=== PATIENT | male | born 1960 | race Caucasian/White ===

== ENCOUNTER → 2020-06-12 | Outpatient (CLI) | payer BC, SELFPAY ==
[2020-06-12 10:05] LABS: Absolute Lymphocyte Count 1.32 X10^3/uL (0.83-4.51); Absolute Neutrophil Count 2.6 X10^3/uL (2.0-7.7); Basophil# 0.05 X10^3/uL; Basophil% 1.1 % (0-1); Eosinophil# 0.15 X10^3/uL; Eosinophils% 3.3 % (0-5); Hematocrit 45.5 % (40-54); Hemoglobin 14.8 g/dL (13.0-16.5); Lymphocyte # 1.32 X10^3/ul (4.0); Lymphocyte % 29.5 % (19-41); Mean Corp Hgb Conc 32.5 g/dL (32-36); Mean Corpuscular Hgb 30.1 pg (27.0-32.0); Mean Corpuscular Volume 92.5 fL (80-94); Mean Platelet Vol. 9.5 fl (6.2-12.0); Monocyte# 0.37 X10^3/uL; Monocyte% 8.3 % (0-10); NRBC Flagged by Analyzer 0 % (0-5); Neutrophil # 2.58 X10^3/uL (2.7-7.7); Neutrophil % 57.6 % (47-70); Platelet Count 214 K/mm3 (150-450); RBC Distribution Width CV 13.4 % (11.6-14.6); RBC Distribution Width SD 45.2 fl (35.1-43.9); Red Blood Count 4.92 M/mm3 (4.6-6.2); White Blood Count 4.5 K/mm3 (4.4-11.0)
[2020-06-12 10:23] LABS: Hemoglobin A1c 5.6 % (3.8-5.6)
[2020-06-12 10:30] LABS: ALB/GLOB Ratio 1.2 RATIO (0.9-2.4); AST(SGOT) 17 U/L (15-37); Alanine Aminotransfer ALT/SGPT 32 U/L (16-61); Albumin, Serum 3.9 g/dL (3.2-5.0); Alkaline Phosphatase 60 U/L (45-117); Anion Gap 4 (5-15); BUN 14 mg/dL (7-18); BUN/Creat Ratio 19.8 RATIO (10-20); Calcium,Total 9.1 mg/dL (8.5-10.1); Chloride 107 mmol/L (98-107); Cholesterol 196 mg/dL (200); Creatinine, Serum 0.71 mg/dL (0.70-1.30); EST Glomerular Filtration Rate 121 mL/min (>60); Est Glom Filt Rate - Afr Amer 146 mL/min (>60); Globulin 3.3 g/dL (2.2-4.2); Glucose 96 mg/dL (74-106); High Density Lipoprotein 83 mg/dL; Potassium 4.4 mmol/L (3.5-5.1); Protein, Total 7.2 g/dL (6.4-8.2); Sodium Level 139 mmol/L (136-145); Triglycerides 101 mg/dL; Uric Acid 6.1 mg/dL (3.5-7.2); Very Low Density Lipoprotein 20 mg/dL (5-40)
== END | disposition home or self-care (01) ==
PROVIDERS: PCP Family Medicine; Referring Provider Family Medicine; Visit Provider Family Medicine
DX: Z00.00 Encounter for general adult medical examination without abnormal findings (principal); M10.9 Gout, unspecified; R73.01 Impaired fasting glucose
CPT/HCPCS: 36415; 80053; 80061; 83036; 84550; 85025

== ENCOUNTER 2020-11-06 14:07 | Observation (INO) | payer BC, SELFPAY ==
[2020-11-06] VITALS (16 sets, daily range): BP systolic 123–174; BP diastolic 67–92; PULSE 50–73; RESP 13–19; TEMP 36–36.9; O2SAT 93–100; BMI 31.9; BMI 32.0; BMI 30.6
--- NOTE | 2020-11-06 14:10 | EKG12_ITS ---
Test Reason : DIZZINESS Blood Pressure : / mmHG Vent. Rate : 052 BPM Atrial Rate : 052 BPM P-R Int : 176 ms QRS Dur : 104 ms QT Int : 484 ms P-R-T Axes : 043 013 029 degrees QTc Int : 450 ms Sinus bradycardia Otherwise normal ECG Confirmed by TREASURE JOSEPH, NOÉ ([id number]), graphic editor [place] ([id number]) on 11/11/2020 2:19:02 PM Referred By: CHINTAN Confirmed By:NOÉ AMANDA MD
--- NOTE | 2020-11-06 14:10 | CT_ITS ---
STUDY: CT HEAD STROKE PROTOCOL W/O CONTRAST INJECTION REASON FOR EXAM: Male, 60 years old. Neuro deficit, acute, stroke suspected RADIATION DOSAGE (If Supplied By Facility): CTDIvol = ( ) mGy, DLP = ( ) mGycm TECHNIQUE: Transaxial CT imaging of the brain was performed without administration of intravenous contrast material. Individualized dose optimization techniques were used for this CT. COMPARISON: No relevant priors. FINDINGS: Normal soft tissue structures. Normal calvarium. There is mild cerebral atrophy with widening of the extra-axial spaces and ventricular dilatation. Normal white matter tracts of the cerebral hemispheres. Normal basal ganglia and thalami. Normal brainstem. Normal cerebellum. There is no intracranial hemorrhage. There are no findings of an acute ischemic infarction. Normal visualized paranasal sinuses. CT/STROKE Brain/Head without Cont IMPRESSION: Chronic involutional changes of the brain. N.B. : The above information has been verbally conveyed by Rai Hester MD to Ross Shell on 11/06/2020 14:23:45 (ET). Electronically Signed: Rai Hester MD at 14:24 EST , Service support ,
--- NOTE | 2020-11-06 14:15 | CM.ED ---
SOCIAL WORK Stroke Alert Patient out of room for testing. present in room. Introduced role. states patient feeling dizzy and headache this morning around 7:30a. states patient has history of vertigo. reports patient is independent with all ADLS/IADLS. Patient is retired. states patient has been under a lot of stress due to his dog's illness and the dog's need to be put to sleep on Wednesday. Much emotional support provided. This worker to remain available for needs. Lizbeth Jarquin, CONTRACT ADMINISTRATOR, MENTAL HEALTH ASSISTANT
--- NOTE | 2020-11-06 14:18 | CT_ITS ---
STUDY: CTA HEAD AND NECK WITH CONTRAST REASON FOR EXAM: Male, 60 years old. Neuro deficit, acute, stroke suspected RADIATION DOSAGE (If Supplied By Facility): CTDIvol = ( 22.17 ) mGy, DLP = ( 757.65 ) mGycm TECHNIQUE: CT angiography was performed with a multi-detector CT scanner. Data acquisition was obtained from the skull base through the vertex following intravenous administration of IV 100mL Isovue-[id number]. MIP images were reconstructed from the axial data set. Post-processing of the angiographic images was performed, with multiplanar reformation and 3D reconstruction. Individualized dose optimization techniques were used for this CT. COMPARISON: No relevant priors. FINDINGS: Normal bilateral petrous carotid arteries. Normal right cavernous carotid artery with a normal supraclinoid bifurcation. Normal left cavernous carotid artery with a normal supraclinoid bifurcation. Normal right A1 segments of the anterior cerebral artery. Normal left A1 segments of the anterior cerebral artery. Normal intact anterior communicating artery (ACOM). Normal bilateral A2 segments of the anterior cerebral arteries. Normal right M1 and M2 segments of the middle cerebral arteries, with a normal M1 bifurcation. Normal left M1 and M2 segments of the middle cerebral arteries, with a normal M1 bifurcation. Normal right posterior communicating artery (PCOM). Normal left posterior communicating artery (PCOM). Normal bilateral vertebral arteries. Normal basilar artery with a normal basilar bifurcation. The visualized bilateral superior cerebellar (SCA) arteries are normal. Normal bilateral P1, P2 and visualized P3 segments of the posterior cerebral arteries. There is no demonstrated aneurysm of the [place]. There is no demonstrated abnormality of the visualized brain. AORTIC ARCH: Normal visualized aortic arch. Normal origins of the brachiocephalic, left common carotid, and left subclavian arteries. RIGHT CAROTID ARTERIES: Normal right common carotid artery (CCA). Normal right common carotid bulb. Normal origin of the right internal carotid (ICA) artery without a hemodynamically significant stenosis. Normal visualized cervical portion of the right internal carotid artery. Normal origin of the right external carotid artery (ECA). LEFT CAROTID ARTERIES: Normal left common carotid artery (CCA). Normal left common carotid bulb. Normal origin of the left internal carotid (ICA) artery without a hemodynamically significant stenosis. Normal visualized cervical portion of the left internal carotid artery. Normal origin of the left external carotid artery (ECA). VERTEBRAL ARTERIES: There is enhancement within the bilateral vertebral arteries with a small right vertebral artery, and a dominant left vertebral artery. CT/STROKE CTA Head AND Neck W/Con IMPRESSION: Normal CTA Head and neck with contrast. N.B. : The above information has been verbally conveyed by Rai Hester MD to Ross Shell on 11/06/2020 14:43:14 (ET). Electronically Signed: Rai Hester MD at 14:44 EST , Service support ,
[2020-11-06 14:21] LABS: Bedside Glucose 140 mg/dL (70-110)
[2020-11-06 14:24] LABS: Absolute Lymphocyte Count 0.95 X10^3/uL (0.83-4.51); Absolute Neutrophil Count 4.4 X10^3/uL (2.0-7.7); Basophil# 0.03 X10^3/uL; Basophil% 0.5 % (0-1); Eosinophil# 0.01 X10^3/uL; Eosinophils% 0.2 % (0-5); Hemoglobin 15.8 g/dL (13.0-16.5); Lymphocyte # 0.95 X10^3/ul (4.0); Lymphocyte % 16.6 % (19-41); Mean Corp Hgb Conc 33.6 g/dL (32-36); Mean Corpuscular Volume 89.2 fL (80-94); Mean Platelet Vol. 9.1 fl (6.2-12.0); Monocyte# 0.29 X10^3/uL; Monocyte% 5.1 % (0-10); NRBC Flagged by Analyzer 0 % (0-5); Neutrophil # 4.42 X10^3/uL (2.7-7.7); Neutrophil % 77.3 % (47-70); Platelet Count 210 K/mm3 (150-450); RBC Distribution Width CV 12.7 % (11.6-14.6); RBC Distribution Width SD 41.4 fl (35.1-43.9); Red Blood Count 5.27 M/mm3 (4.6-6.2); White Blood Count 5.7 K/mm3 (4.4-11.0)
[2020-11-06 14:31] LABS: Partial Thromboplast Time 24.4 Seconds (24.1-36.2); Prothrombin Time (Protime)PT. 12.7 SECONDS (11.7-14.9)
--- NOTE | 2020-11-06 14:36 | ED.DCSUM_ITS ---
History of Present Illness Chief Complaint: Dizziness Informant: Patient, Family Narrative: Patient is a 60-year-old male who presents to the emergency department for headache, dizziness and nausea/vomiting. His initial symptoms started upon awaking this morning. His last known well was 2:30 AM whenever he woke up in the middle the night last night. He states that the headache woke him up out of sleep this morning. He feels like the room has been spinning around him. He does have a history of vertigo but feels this states different. His nausea has since resolved but the dizziness is persistent. He denies any visual changes. He denies any weakness or loss of sensation in any extremity. No issues with word finding. He denies any recent illness including any fever/chills. No ear pain or sore throat. He denies any change in bowel habits or urinary symptoms. He is not on any anticoagulation. Denies any recent falls. He has not had any chest pain, shortness of breath or heart palpitations. Past Medical History - Allergies and Home Meds Allergies/Adverse Reactions: Allergies Penicillins Allergy (Verified 11/09/16 08:24) Rash Prior records reviewed: Yes Smoking Status: Never smoker Review of Systems All systems negative except as indicated General: Denies: Chills, Fever, Sweats Eyes: Denies: Visual changes - bilaterally, Diplopia ENT: Denies: Rhinorrhea, Sore throat Cardiovascular: Denies: Chest pain, Palpitations Respiratory: Denies: Dyspnea, Cough, Dyspnea on exertion Gastrointestinal: Reports: Nausea, Vomiting. Denies: Abdominal pain, Diarrhea Genitourinary: Denies: Dysuria, Hematuria, Frequency Musculoskeletal: Denies: Back pain, Extremity Pain Skin: Denies: Rash, Wounds Neurological: Reports: Headache, - - Dizziness. Denies: Weakness, Numbness Physical Exam Vital Signs/Narrative: Vital Signs Temp Pulse Resp BP Pulse Ox 11/06/20 14:23 96.8 F L 55 L 19 H 129/85 H 93 Inital Vital Signs reviewed: Yes General: Well nourished, Well developed Head: Normocephalic, Atraumatic Eyes: Perrl, EOMI, - - Fatigable nystagmus to left ENT: Moist mucous membranes, No rhinorrhea Neck: Supple, Nontender Cardiovascular: Regular rate, Regular rhythm, No murmurs Respiratory: No distress, CTA bilaterally, Chest nontender Abdomen: Soft, Nontender, Nondistended, Normal bowel sounds Back: Nontender, Normal Inspection Extremities: Nontender, No edema Skin: Normal color, No rash Neurological: Alert, Oriented x3, Cranial nerves II-XII grossly intact, Normal Strength, Normal Sensation, - - NIH score of 0.. Negative for: Left side facial droop, Right side facial droop Psychological: Normal affect, Normal Mood Diagnostic/Tx/Re-eval Chest X-Ray - ED: 1 View - Single view portable x-ray interpreted by myself. Clear lung melchor bilaterally. Mild elevation of right hemidiaphragm. No consolidations appreciated. No pleural effusions. Normal cardiac silhouette. - EKG Initial EKG Interpretation: - - Rate of 52 bpm in sinus bradycardia. Normal intervals. Normal axis. No significant ST elevations or depressions. No T wave abnormalities. - Medical Decision Making Patient presents to the ED for headache, dizziness and vomiting. Stroke alert was called upon arrival to the emergency department. Patient not a TPA candidate given the length of symptoms. He does have a history of vertigo but does not feel this is completely similar. He has no focal deficits on physical exam. Does have fatigable nystagmus to the left points to the direction of BPPV. Will trial a dose of meclizine. Did get a dose of Zofran as she was actively vomiting upon arrival to the emergency department. Throughout ED stay patient still having persistent dizziness despite meclizine treatment. He is starting to complain that the left side of his face is feeling more numb. Given the persistent symptoms, other focal deficit with the sensory issue will bring him into the hospital for further stroke work-up. His CT imaging did not reveal any large vessel occlusion or intracranial hemorrhage. He otherwise has been stable throughout ED stay. He is agreeable to staying in the hospital at this time. ED Disposition - Plan for ED Patient: Disposition: Acute Care Hospital [facility] Diagnosis: Vertiginous syndrome, Left facial numbness, Nausea and vomiting
[2020-11-06 14:37] LABS: Anion Gap 5 (5-15); BUN 15 mg/dL (7-18); BUN/Creat Ratio 20.2 RATIO (10-20); Calcium,Total 9.3 mg/dL (8.5-10.1); Chloride 105 mmol/L (98-107); Creatinine, Serum 0.74 mg/dL (0.70-1.30); EST Glomerular Filtration Rate 114 mL/min (>60); Est Glom Filt Rate - Afr Amer 138 mL/min (>60); Estimated Creatinine Clearance 116.52 ml/min; Glucose 140 mg/dL (74-106); Potassium 4.3 mmol/L (3.5-5.1); Sodium Level 139 mmol/L (136-145)
--- NOTE | 2020-11-06 14:50 | RAD_ITS ---
STUDY: X-RAY CHEST REASON FOR EXAM: Male, 60 years old. Neuro deficit, acute, stroke suspected TECHNIQUE: Single AP portable view of the chest. COMPARISON: None. FINDINGS: EKG electrodes are seen. Elevation of the right hemidiaphragm. Scattered calcified granulomas. No acute infiltrate is seen. There is no demonstrated pleural abnormality. Normal size heart. Normal mediastinum and maye. Normal visualized pulmonary arteries. There is atherosclerotic calcification of the aortic arch with tortuosity. Normal visualized thoracic spine. Normal visualized ribs, clavicles, and shoulders. There is no demonstrated abnormality of the visualized soft tissue structures of the upper abdomen. RAD/Chest 1 View IMPRESSION: Elevation of the right hemidiaphragm. No acute abnormality is seen. Electronically Signed: Rai Hester MD at 15:09 EST , Service support ,
[2020-11-06] MEDS: Ondansetron 4 MG/2 ML Vial IV (14:56)
[2020-11-06] MEDS: Meclizine HCl 25 MG Tablet PO (14:56)
--- NOTE | 2020-11-06 15:55 | CHAPLAIN ---
Type of Pastoral Visit ___ Initial Visit ___ Follow-up Visit ___ On-call Visit ___ General Patient Visit ___ Spiritual Assessment ___ Family Conference ___ Bereavement _x__ Rapid Response ___ Code Blue ___ Other (describe below) Pastoral Care Referral From ___ Patient ___ Family ___ Nurse ___ Physician ___ Test Center Administrator ___ Dust Collector Operator ___ Other (describe below) Sacrament/Intervention ___ Active listening ___ Anointing ___ Orthodoxy ___ Bereavement ___ Communion ___ Kimberly exploration ___ ___ Life review ___ Prayer ___ Reconciliation ___ Sacrament of Sick ___ Supportive presence ___ Wedding ___ Other (describe below) Pastoral Comments response to stroke alert; pt is being evaluated with telehealth team in [place]; SW states that she has met with pt and spouse and there are no other needs at this time
--- NOTE | 2020-11-06 17:28 | MRI_ITS ---
STUDY: MRI BRAIN WITHOUT CONTRAST REASON FOR EXAM: Male, 60 years old. dizziness TECHNIQUE: Standardized multiplanar fat and water weighted pulse sequences were obtained. COMPARISON: CT of the brain 11/06/2020 FINDINGS: Mild generalized cerebral atrophy for stated age.. Normal white matter tracts of the supratentorial brain. Normal bilateral basal ganglia. Normal thalami. There is no extra-axial fluid accumulation. Normal flow voids within the major intracranial circulation suggesting patency by spin echo criteria. Tortuous left vertebral artery producing mild extrinsic compression upon the left anterolateral medulla of uncertain clinical significance. Normal sella turcica, pituitary gland, infundibular stalk, optic chiasm and hypothalamus. Normal tectal plate and pineal gland. Normal midbrain, hollie and medulla. Normal cerebellum. Normal basal cisterns. Normal bilateral temporal bones. Normal bilateral internal auditory canals. No demonstrated orbital abnormality, within the constraints of a routine brain study. Normal visualized paranasal sinuses. Normal calvarium and skull base. Normal visualized soft tissue structures. Normal visualized upper cervical spine. MRI/Brain without Contrast IMPRESSION: Mild generalized cerebral atrophy for age. No appreciable white matter disease or evidence for acute infarct Tortuous left vertebral artery producing mild mass effect upon the left anterolateral aspect of the medulla of uncertain clinical significance. If clinical concern for acoustic or vestibular schwannoma, limited repeat scan with contrast would be helpful for more definitive evaluation Electronically Signed: Dariusz Wills MD at 21:49 EST , Service support ,
--- NOTE | 2020-11-06 17:28 | PCM.HP.STD ---
Problem List (1) Vertiginous syndrome Status: Acute (2) Left facial numbness Status: Acute (3) Nausea and vomiting Status: Acute History of Present Illness Date of Admission: 11/06/20 Chief Complaint: dizziness The patient is a 60 year old M presents with vertigo. Vertigo began this morning. It also was associated with left facial numbness. Patient states he gets this periodically but this episode felt much worse than previous. Patient has been diagnosed with vertigo previously. Given the facial numbness was concerned and presented to the emergency room for evaluation. Patient also complaining with trouble swallowing. Patient had had some neck swelling like for about 6 months and is taking some antibiotics which is seems of help but still has some trouble with swallowing. [] Past Medical History Medical History: Medical History (Last Updated 11/06/20 @ 17:[address] Benton Huerta, DO) Vertigo R42 HTN (hypertension) I10 Allergies Penicillins Allergy (Verified 11/09/16 08:24) Rash Home Medications: Ambulatory Orders Medication Instructions Recorded Aspirin [Aspirin, Baby] 81 mg PO DAILY@0800 11/06/20 Citalopram [Celexa] 20 mg PO DAILY 11/06/20 Metoprolol Succinate [Toprol Xl] 25 mg PO DAILY 11/06/20 Minocycline [Minocin] 100 mg PO DAILY 11/06/20 Multivitamin with Minerals 1 ea PO DAILY 11/06/20 [Multiple Vitamin] Smoking Status: Never smoker Tobacco Use: Chew - *Family History Maternal History Items: - - no cva Review of Systems Constitutional: Denies: Anorexia, Night Sweats Eyes: Denies: Blurred vision, Double vision HEENT: Denies: Head Aches, Sinus Congestion, Sinus Drainage Cardiovascular: Denies: Chest Pain, Palpitations Respiratory: Denies: Cough, Shortness of breath at rest, Sputum production Gastrointestinal: Denies: Abdominal Pain, Nausea, Vomiting Genitourinary: Denies: Dysuria Musculoskeletal: Denies: Joint Pain, Joint Tenderness Skin: Denies: Dryness, Jaundice Neurological: Denies: Numbness, Tingling, Focal weakness Psychiatric: Denies: Anxiety, Depression Hematologic/ Lymphatic: Denies: Easy Bruising, Easy Bleeding, Hx of blood clot Comment: All review of systems were negative except as mentioned above in the history of present illness and the other review of systems. VTE Information - Inpt Only VTE Present on Admission: No VTE Mechan Device Prophylaxis: None VTE Pharm Prophylaxis ordered?: No Patient Problems: Active and Suspected Problems Vertiginous syndrome (Acute) Left facial numbness (Acute) Nausea and vomiting (Acute) - Physical Exam Vitals/I&O's: Vital Signs Temp Pulse Resp BP Pulse Ox 36.5 C L 50 L 18 144/92 H 100 11/06/20 16:26 11/06/20 16:59 11/06/20 16:59 11/06/20 16:59 11/06/20 16:59 Oxygen Delivery Method Room Air Weight: 102.512 kg Body Mass Index (BMI) 30.6 Finger Stick Blood Glucose 137 General: Alert, Cooperative, No apparent distress, Well developed, Well nourished HEENT: Atraumatic, PERRLA, EOMI, Normocephalic, - - nystagmus on left that fatigued Oral: Moist Mucosa, No Gingival or Mucosal Lesions/ Ulcerations Neck: No Nodes, Thyroid Normal Size and Texture Lungs: Clear to auscultation, Normal air movement, No rhonchi, No wheeze, No rales Cardiovascular: Regular rate, Regular Rhythm, Normal S1, Normal S2, No murmurs Abdomen: Bowel Sounds Present, Soft, Non Tender, Non-Distended, No Hepato-splenomegaly Extremities: No edema, No Calf Tenderness Skin: No rashes, No breakdown Musculoskeletal: No Tenderness to Palpation of Joints or Extremities, No Muscle Wasting Neurological: Cranial nerves II-XII grossly intact, Deep Tendon Reflexes 2+/4 and Symmetrical, Motor Exam 5/5 strength throughout Psych/Mental Status: Normal Affect, Appropriate Laboratory Results 11/06/20 13:37: WBC 5.7, RBC 5.27, Hgb 15.8, Hct 47.0, MCV 89.2, MCH 30.0, MCHC 33.6, RDW Std Deviation 41.4, RDW Coeff of Marie 12.7, Plt Count 210, MPV 9.1, Immature Gran % (Auto) 0.300, Neut % (Auto) 77.3 H, Lymph % (Auto) 16.6 L, [place] % (Auto) 5.1, Eos % (Auto) 0.2, Baso % (Auto) 0.5, Absolute Neuts (auto) 4.4, Absolute Lymphs (auto) 0.95, Nucleated RBC % 0 11/06/20 13:37: PT 12.7, INR 1.0, APTT 24.4 11/06/20 13:37: Sodium 139, Potassium 4.3, Chloride 105, Carbon Dioxide 29.0, Anion Gap 5, BUN 15, Creatinine 0.74, Estim Creat Clear Calc 116.52, Est GFR (MDRD) Af Amer 138, Est GFR (MDRD) Non-Af 114, BUN/Creatinine Ratio 20.2 H, Glucose 140 H, Calcium 9.3, Troponin I < 0.015 11/06/20 14:13: POC Glucose 140 H EKG sinus nj Current Medications Labetalol HCl (Labetalol (Prefilled) 20 Mg/4 Ml) 20 mg IV X1 PRN PRN Reason: BLOOD PRESSURE Sodium Chloride (0.9% Saline Lock 10 Ml Syringe) 10 - 40 ml IV UD PRN PRN Reason: SALINE FLUSH Assessment/Plan All Active Problems Vertiginous syndrome (Acute) Left facial numbness (Acute) Nausea and vomiting (Acute) 1. vertigo Patient complaining of left facial numbness as well as a headache. This could be just is standard benign vertigo with a migraine on top of that but given the new symptoms will need to rule out stroke. meclizine r/o CVA with MRI, MRA, echo PT OT ST 2. Neck swelling Unclear is if this is a parotid issue or not Check neck x-ray Patient with subjective trouble swallowing and will have speech therapy evaluate him. 3. Hypertension Stable Continue with metoprolol 4. VTE prophylaxis indicated as patient is observation status. 5 advanced care planning. Discussed with the patient. Patient wishes to be full CODE STATUS. OBSV E&M: [id number] Initial observation care L3
[2020-11-06] MEDS: 0.9% Normal Saline 1,000 ML 125 ML IV (18:09)
[2020-11-06] MEDS: LORazepam 1 MG Tablet PO (19:44)
--- NOTE | 2020-11-06 20:15 | NURSING ---
pt to mri
[2020-11-07] MEDS: 0.9% Normal Saline 1,000 ML 125 ML IV (02:10)
[2020-11-07 03:19] VITALS: PULSE 57
[2020-11-07 03:21] VITALS: BP 112/52; PULSE 80; RESP 18; TEMP 36.7; O2SAT 97
[2020-11-07 05:49] LABS: Cholesterol 197 mg/dL (200); High Density Lipoprotein 76 mg/dL; Triglycerides 161 mg/dL; Very Low Density Lipoprotein 32 mg/dL (5-40)
[2020-11-07 06:45] VITALS: PULSE 58
[2020-11-07 07:50] VITALS: O2SAT 97
[2020-11-07] MEDS: Aspirin 81 MG TAB.CHEW PO (08:55)
[2020-11-07] MEDS: Citalopram 20 MG Tablet PO (08:55)
[2020-11-07 08:57] VITALS: BP 121/85; PULSE 61; RESP 14; TEMP 36.6; O2SAT 99
[2020-11-07 09:02] VITALS: BP 121/85; PULSE 61
[2020-11-07] MEDS: Multivitamins,Ther W-Minerals Tablet 1 TABLET PO (09:02)
[2020-11-07] MEDS: Metoprolol(XL)Succ 25 MG Tablet PO (09:02)
--- NOTE | 2020-11-07 10:18 | DS.PCM_ITS ---
<Gilbert Sabillon - Last Filed: 11/07/20 10:18> Discharge Date and Diagnosis - Problem List Patient Problems: Active and Suspected Problems (Last Updated 11/06/20 @ 17:[address] Benton Huerta DO) Vertiginous syndrome (Acute) Left facial numbness (Acute) Nausea and vomiting (Acute) Date of Admission: 11/06/20 Date of Discharge: 11/07/20 - Primary Discharge Diagnosis Acute Problems: Active Problems (Last Updated 11/06/20 @ 17:[address] Benton Huerta DO) Vertiginous syndrome (Acute) Left facial numbness (Acute) Nausea and vomiting (Acute) Suspected Problems: Stroke rule out Hospital Course and Treatment Imaging Results: Brain MRI - unremarkable. Mild cerebral atrophy consistent with age. CT-A Head & Neck - unremarkable. Brain CT unremarkable. No intracranial hemorrhage or findings of acute infarction. Follow up with Neurology outpatient. Operations: None Procedures: None Summary of Care Provided: The patient is a 60 year old male who was admitted to the hospital with a chief complaint of vertigo, left facial numbness. Patient was admitted to rule out stroke. [] Patient Problems: Active and Suspected Problems (Last Updated 11/06/20 @ 17:[address] Benton Huerta DO) Vertiginous syndrome (Acute) Left facial numbness (Acute) Nausea and vomiting (Acute) - Physical Exam Vitals/I&O's: Vital Signs Temp Pulse Resp BP Pulse Ox 97.9 F 61 14 121/85 H 99 11/07/20 08:57 11/07/20 09:02 11/07/20 08:57 11/07/20 09:02 11/07/20 08:57 Oxygen Delivery Method Room Air Weight: 226 lb Body Mass Index (BMI) 30.6 Finger Stick Blood Glucose 137 Intake and Output for Last 24 Hours 11/05/20 11/06/20 11/07/20 23:59 23:59 23:59 Intake Total 120 / 120 1120 / 1120 Output Total 100 / 100 900 / 900 Balance 220 / 220 General: Alert, Oriented x3, Cooperative HEENT: Atraumatic, PERRLA, EOMI, Normocephalic Neck: Supple, No JVD, Negative Carotid Bruits Lungs: Clear to auscultation, Normal air movement Cardiovascular: Regular rate, No murmurs Abdomen: Bowel Sounds Present, Soft, Non Tender Extremities: No edema, Capillary Refill Less than 3 Seconds Skin: No rashes, No breakdown Musculoskeletal: No Tenderness to Palpation of Joints or Extremities Neurological: Cranial nerves II-XII grossly intact Psych/Mental Status: Normal Affect, Appropriate Laboratory Results 11/06/20 13:37: WBC 5.7, RBC 5.27, Hgb 15.8, Hct 47.0, MCV 89.2, MCH 30.0, MCHC 33.6, RDW Std Deviation 41.4, RDW Coeff of Marie 12.7, Plt Count 210, MPV 9.1, Immature Gran % (Auto) 0.300, Neut % (Auto) 77.3 H, Lymph % (Auto) 16.6 L, [place] % (Auto) 5.1, Eos % (Auto) 0.2, Baso % (Auto) 0.5, Absolute Neuts (auto) 4.4, Absolute Lymphs (auto) 0.95, Nucleated RBC % 0 11/06/20 13:37: PT 12.7, INR 1.0, APTT 24.4 11/06/20 13:37: Sodium 139, Potassium 4.3, Chloride 105, Carbon Dioxide 29.0, Anion Gap 5, BUN 15, Creatinine 0.74, Estim Creat Clear Calc 116.52, Est GFR (MDRD) Af Amer 138, Est GFR (MDRD) Non-Af 114, BUN/Creatinine Ratio 20.2 H, Glucose 140 H, Calcium 9.3, Troponin I < 0.015 11/06/20 14:13: POC Glucose 140 H 11/07/20 05:24: Triglycerides 161, Cholesterol 197, LDL Cholesterol 89, VLDL Cholesterol 32, HDL Cholesterol 76 Current Medications Aspirin (Aspirin 81 Mg Tab.Chew) 81 mg PO DAILY@0800 [facility] Last Admin: 11/07/20 08:55 Dose: 81 mg Documented by: Citalopram Hydrobromide (Citalopram 20 Mg Tablet) 20 mg PO DAILY [facility] Last Admin: 11/07/20 08:55 Dose: 20 mg Documented by: Hydralazine HCl (Hydralazine 20 Mg/Ml Vial) 5 mg IV Q30M PRN PRN Reason: to maintain BP goals Sodium Chloride () 1,000 mls @ 125 mls/hr IV .Q8H [facility] Last Admin: 11/07/20 02:10 Dose: 125 mls/hr Documented by: Labetalol HCl (Labetalol (Prefilled) 20 Mg/4 Ml) 10 - 20 mg IV Q10M PRN PRN PRN Reason: to Maintain BP Goals Metoprolol Succinate (Metoprolol(Xl)Succ 25 Mg Tablet) 25 mg PO DAILY [facility] Last Admin: 11/07/20 09:02 Dose: 25 mg Documented by: Multivitamins/Minerals (Multivitamins,Ther W-Minerals Tablet) 1 tablet PO DAILY@0800 [facility] Last Admin: 11/07/20 09:02 Dose: 1 tablet Documented by: Sodium Chloride (0.9% Saline Lock 10 Ml Syringe) 10 - 40 ml IV UD PRN PRN Reason: SALINE FLUSH Discharge Activity: Return to Normal Activity Return to work on:: 11/08/20 May shower in (days): 1 January resume sexual activity in: No Restrictions Weight Bearing Status: Weight bearing as tolerated Call your doctor if you observe: Numbness or Tingling, Fainting spells, Chest pain Home Medications: Medications to take at Discharge Aspirin [Aspirin, Baby] 81 mg PO DAILY@0800 30 Days #30 tab.chew 11/07/20 Citalopram [Celexa] 20 mg PO DAILY 30 Days #30 tab 11/07/20 Metoprolol Succinate [Toprol Xl] 25 mg PO DAILY 30 Days #30 11/07/20 Minocycline [Minocin] 100 mg PO DAILY 30 Days #30 cap 11/07/20 Following Prescriptions Were Given to Patient: Aspirin [Aspirin, Baby] 81 mg PO DAILY@0800 30 Days #30 tab.chew Transmission Status: Received by [facility] Citalopram [Celexa] 20 mg PO DAILY 30 Days #30 tab Transmission Status: Received by [facility] Minocycline [Minocin] 100 mg PO DAILY 30 Days #30 cap Transmission Status: Received by [facility] Metoprolol Succinate [Toprol Xl] 25 mg PO DAILY 30 Days #30 Prescription Printed Primary Care Physician: Julio Drake DO [Primary Care Provider] - Please Follow Up With: [facility] - [phone] When: Within the next week Please Follow Up With: Primary care provider When: within the next week Disposition: Home Minutes spent on discharge:: 15 Patient Condition:: Good Medical Necessity - Tobacco Use Smoking Status: Never smoker Tobacco Use: Chew Meaningful Use Info Meaningful Use Diagnoses (Choose all that apply): None applicable - Ischemic Stroke Antithrombotic order at d/c?: No Reason antithrombotic not ordered: Treatment not Indicated Dx of Atrial fib/flutter?: No Anticoagulant at discharge?: No Reason anticoagulant not ordered: Treatment not Indicated Statins at discharge?: No Reason Statin not ordered: Treatment not Indicated Primary Dx Acute Ischemic CVA?: No IV tPA ordered during stay?: No Reason IV t-PA not ordered: Treatment not Indicated - VTE Anticoag overlap given w/in hospital stay or rx'd at dc?: No Pt receive overlap for 5 days?: No Reason overlap not ordered, prescribed, or given for 5 days: Treatment Not Indicated <Musa Kemp - Last Filed: 11/07/20 12:53> Discharge Date and Diagnosis - Primary Discharge Diagnosis Acute Problems: Active Problems (Last Updated 11/06/20 @ 17:[address] Benton Huerta, DO) Vertiginous syndrome (Acute) Left facial numbness (Acute) Nausea and vomiting (Acute) Hospital Course and Treatment Imaging Results: Clinical Impression(s) from Imaging Studies Brain CT 11/06/20 14:10 IMPRESSION: Chronic involutional changes of the brain. N.B. : The above information has been verbally conveyed by Rai Hester MD to Ross Shell on 11/06/2020 14:23:45 (ET). Electronically Signed: Rai Hester MD at 14:24 EST , Service support , ADDENDUM: 11/06/20 1431 IMPRESSION: Chronic involutional changes of the brain. N.B. : The above information has been verbally conveyed by Rai Hester MD to Ross Shell on 11/06/2020 14:23:45 (ET). Electronically Signed: Rai Hester MD at 14:24 EST , Service support , Head/Neck CTA 11/06/20 14:18 IMPRESSION: Normal CTA Head and neck with contrast. N.B. : The above information has been verbally conveyed by Rai Hester MD to Ross Shell on 11/06/2020 14:43:14 (ET). Electronically Signed: Rai Hester MD at 14:44 EST , Service support , ADDENDUM: 11/06/20 1451 IMPRESSION: Normal CTA Head and neck with contrast. N.B. : The above information has been verbally conveyed by Rai Hester MD to Ross Shell on 11/06/2020 14:43:14 (ET). Electronically Signed: Rai Hester MD at 14:44 EST , Service support , ADDENDUM: 11/06/20 1837 Chest X-Ray 11/06/20 14:50 IMPRESSION: Elevation of the right hemidiaphragm. No acute abnormality is seen. Electronically Signed: Rai Hester MD at 15:09 EST , Service support , Brain MRI 11/06/20 17:28 IMPRESSION: Mild generalized cerebral atrophy for age. No appreciable white matter disease or evidence for acute infarct Tortuous left vertebral artery producing mild mass effect upon the left anterolateral aspect of the medulla of uncertain clinical significance. If clinical concern for acoustic or vestibular schwannoma, limited repeat scan with contrast would be helpful for more definitive evaluation Electronically Signed: Dariusz Wills MD at 21:49 EST , Service support , Summary of Care Provided: Per HPI: The patient is a 60 year old M presents with vertigo. Vertigo began this morning. It also was associated with left facial numbness. Patient states he gets this periodically but this episode felt much worse than previous. Patient has been diagnosed with vertigo previously. Given the facial numbness was concerned and presented to the emergency room for evaluation. Patient also complaining with trouble swallowing. Patient had had some neck swelling like for about 6 months and is taking some antibiotics which is seems of help but still has some trouble with swallowing. Hospital Course 1. Vertigo with neck swelling and facial [id number] male with a chronic history of vertigo and tinnitus normally on the right presented with continued vertigo as well as new onset left facial numbness as well as a headache. This seems to be consistent with a migraine on top of his chronic vertigo. I do recommend that he see ENT as an outpatient for his tinnitus and vertigo MRI was unremarkable for stroke therefore do not feel like he needs the addition of a statin given his LDL being 89. I do recommend that he at least follow-up with neurology as an outpatient to obtain echo. Does have bilateral parotitis that apparently is getting better since he has been started on minocycline as an outpatient by his PCP. Would also recommend the addition of lemon drops to help speed recovery. He did have some swollen lymph nodes which is being monitored and evaluated as an outpatient as well and this likely secondary to his parotitis. I discussed with him the plan for discharge with him and his , they both expressed understanding of the risk benefits of going home and would like to go home today. 2. Hypertension, depression, anxiety or chronic medical condition which complicates care. His home medications were continued where appropriate - Physical Exam Vitals/I&O's: Vital Signs Temp Pulse Resp BP Pulse Ox 97.9 F 61 14 121/85 H 99 11/07/20 08:57 11/07/20 09:02 11/07/20 08:57 11/07/20 09:02 11/07/20 08:57 Oxygen Delivery Method Room Air Weight: 226 lb Body Mass Index (BMI) 30.6 Finger Stick Blood Glucose 137 Intake and Output for Last 24 Hours 11/05/20 11/06/20 11/07/20 23:59 23:59 23:59 Intake Total 120 / 120 2120 / 2120 Output Total 100 / 100 900 / 900 Balance 1220 / 1220 Cardiovascular: Regular Rhythm, Normal S1, Normal S2 Abdomen: Non-Distended, No Hepato-splenomegaly Neurological: Deep Tendon Reflexes 2+/4 and Symmetrical, Neuro grossly intact, Motor Exam 5/5 strength throughout, Sensory exam intact to light touch and pain Laboratory Results 11/06/20 13:37: WBC 5.7, RBC 5.27, Hgb 15.8, Hct 47.0, MCV 89.2, MCH 30.0, MCHC 33.6, RDW Std Deviation 41.4, RDW Coeff of Marie 12.7, Plt Count 210, MPV 9.1, Immature Gran % (Auto) 0.300, Neut % (Auto) 77.3 H, Lymph % (Auto) 16.6 L, [place] % (Auto) 5.1, Eos % (Auto) 0.2, Baso % (Auto) 0.5, Absolute Neuts (auto) 4.4, Absolute Lymphs (auto) 0.95, Nucleated RBC % 0 11/06/20 13:37: PT 12.7, INR 1.0, APTT 24.4 11/06/20 13:37: Sodium 139, Potassium 4.3, Chloride 105, Carbon Dioxide 29.0, Anion Gap 5, BUN 15, Creatinine 0.74, Estim Creat Clear Calc 116.52, Est GFR (MDRD) Af Amer 138, Est GFR (MDRD) Non-Af 114, BUN/Creatinine Ratio 20.2 H, Glucose 140 H, Calcium 9.3, Troponin I < 0.015 11/06/20 14:13: POC Glucose 140 H 11/07/20 05:24: Triglycerides 161, Cholesterol 197, LDL Cholesterol 89, VLDL Cholesterol 32, HDL Cholesterol 76 Current Medications Aspirin (Aspirin 81 Mg Tab.Chew) 81 mg PO DAILY@0800 [facility] Last Admin: 11/07/20 08:55 Dose: 81 mg Documented by: Citalopram Hydrobromide (Citalopram 20 Mg Tablet) 20 mg PO DAILY [facility] Last Admin: 11/07/20 08:55 Dose: 20 mg Documented by: Hydralazine HCl (Hydralazine 20 Mg/Ml Vial) 5 mg IV Q30M PRN PRN Reason: to maintain BP goals Sodium Chloride () 1,000 mls @ 125 mls/hr IV .Q8H [facility] Last Infusion: 11/07/20 11:17 Dose: Infused Documented by: Labetalol HCl (Labetalol (Prefilled) 20 Mg/4 Ml) 10 - 20 mg IV Q10M PRN PRN PRN Reason: to Maintain BP Goals Metoprolol Succinate (Metoprolol(Xl)Succ 25 Mg Tablet) 25 mg PO DAILY [facility] Last Admin: 11/07/20 09:02 Dose: 25 mg Documented by: Multivitamins/Minerals (Multivitamins,Ther W-Minerals Tablet) 1 tablet PO DAILY@0800 [facility] Last Admin: 11/07/20 09:02 Dose: 1 tablet Documented by: Sodium Chloride (0.9% Saline Lock 10 Ml Syringe) 10 - 40 ml IV UD PRN PRN Reason: SALINE FLUSH Minutes spent on discharge:: 35 OBSV E&M: 70535 Observation care discharge
--- NOTE | 2020-11-07 11:08 | PCM.DC ---
<Gilbert Sabillon PA - Last Filed: 11/07/20 11:15> - Discharge Diagnoses Current Active Problems: Current Active and Chronic Problems (Last Updated 11/06/20 @ 17:[address] Benton Huerta DO) Vertiginous syndrome (Acute) Left facial numbness (Acute) Nausea and vomiting (Acute) You will use the following diet at home:: No restrictions, Regular Your food should be the consistency of: Regular Your liquids should be the consistency of: Regular/Thin Discharge Activity: Return to Normal Activity Return to work on:: 11/08/20 May shower in (days): 1 May resume sexual activity in: No Restrictions Weight Bearing Status: Weight bearing as tolerated Call your doctor if you observe: Chest pain Allergies/Adverse Reactions: Allergies Penicillins Allergy (Verified 11/09/16 08:24) Rash Medications to take at Discharge Aspirin [Aspirin, Baby] 81 mg PO DAILY@0800 30 Days #30 tab.chew 11/07/20 Citalopram [Celexa] 20 mg PO DAILY 30 Days #30 tab 11/07/20 Metoprolol Succinate [Toprol Xl] 25 mg PO DAILY 30 Days #30 11/07/20 Minocycline [Minocin] 100 mg PO DAILY 30 Days #30 cap 11/07/20 The following prescriptions were given: Aspirin [Aspirin, Baby] 81 mg PO DAILY@0800 30 Days #30 tab.chew Transmission Status: Received by [facility] Citalopram [Celexa] 20 mg PO DAILY 30 Days #30 tab Transmission Status: Received by [facility] Minocycline [Minocin] 100 mg PO DAILY 30 Days #30 cap Transmission Status: Received by [facility] Metoprolol Succinate [Toprol Xl] 25 mg PO DAILY 30 Days #30 Prescription Printed Primary Care Physician: Julio Drake DO [Primary Care Provider] - Test Results: Test results from this visit will be discussed in further detail at your follow-up appointment, if applicable. Please Follow Up With: Neurology - [phone] When: Within the next week Please Follow Up With: Primary care provider When: within the next week Proposed Discharge Date: 11/07/20 <Musa Kemp - Last Filed: 11/07/20 12:40> - Discharge Diagnoses Current Active Problems: Current Active and Chronic Problems (Last Updated 11/06/20 @ 17:[address] Benton Huerta, DO) Vertiginous syndrome (Acute) Left facial numbness (Acute) Nausea and vomiting (Acute) Additional Instructions: Follow-up with your PCP in 3 to 5 days as well as neurology in 1 to 2 weeks. MRI was negative however would recommend continue to get an echo as an outpatient. Please follow up with your Primary Care Physician in: 3-5 days Test Results: Test results from this visit will be discussed in further detail at your follow-up appointment, if applicable. Please Follow Up With: Mohit Escamilla MD When: 1 to 2 weeks Please Follow Up With: ENT When: 1 to 2 weeks
--- NOTE | 2020-11-07 13:39 | CASEMGMT ---
Social Work SW met with pt and in room and introduced self and role of SW. Pt presenting with stroke like symptoms. PHQ9 depression assessment completed with pt score of 09/01. Pt stating that his dog of 9 years is dying and pt depressed mood over the last two weeks is associated with this. Pt expresses no thoughts of harming himself nor concerns with returning home. SW explained association of stroke and depression and encouraged pt to be mindful of mood and contact PCP or counselor for help if depression continues or worsens. List of area counselors provided to pt. Emotional support provided to pt regarding loss of his dog. No further SW needs at this time. LAURA Naidu
== END 2020-11-07 11:13 | disposition home or self-care (01) ==
LOC: ED 14:45 → PCU 16:33
PROVIDERS: Emergency Medicine; Emergency Provider Emergency Medicine; PCP Family Medicine; Visit Provider Family Medicine
DX: R42 Dizziness and giddiness (principal); R20.0 Anesthesia of skin; R11.2 Nausea with vomiting, unspecified; R51.9 Headache, unspecified; R00.1 Bradycardia, unspecified; I10 Essential (primary) hypertension; R22.1 Localized swelling, mass and lump, neck; R13.10 Dysphagia, unspecified; Z79.899 Other long term (current) drug therapy; Z79.82 Long term (current) use of aspirin; F32.9 Major depressive disorder, single episode, unspecified
CPT/HCPCS: 70450; 70496; 70498; 70551; 71045; 80048; 80061; 82962; 84484; 85025; 85610; 85730; 92610; 93005; 94762; 96361; 96374; 99218; 99285; J7030; Q9967; A4216; G0378; J2405

== ENCOUNTER → 2020-11-08 13:59 | Outpatient (CLI) | payer BC, SELFPAY ==
[2020-11-07 13:03] VITALS: BMI 30.6
[2020-11-08 18:05] LABS: Erythrocyte Sedimentation Rate 2 mm/hr (0-20)
[2020-11-11 15:53] LABS: V-Zoster Virus Acute IgM < 0.91 index (0.00-0.90)
== END ==
PROVIDERS: PCP Family Medicine; Visit Provider Family Medicine
DX: I88.9 Nonspecific lymphadenitis, unspecified (principal); B02.9 Zoster without complications
CPT/HCPCS: 36415; 85652; 86787

== ENCOUNTER → 2022-04-24 | Outpatient (CLI) | payer BC, SELFPAY ==
[2022-04-24 12:49] LABS: Cholesterol 234 mg/dL (200); High Density Lipoprotein 74 mg/dL; Triglycerides 159 mg/dL; Very Low Density Lipoprotein 32 mg/dL (5-40)
== END | disposition home or self-care (01) ==
LOC: MTLAB 10:33
PROVIDERS: PCP Family Medicine; Referring Provider Nurse Practitioner Family; Visit Provider Nurse Practitioner Family
DX: I67.9 Cerebrovascular disease, unspecified (principal)
CPT/HCPCS: 36415; 80061

== ENCOUNTER → 2022-11-05 | Outpatient (CLI) | payer OTHER, SELFPAY ==
[2022-11-05 10:31] LABS: AST(SGOT) 25 U/L (15-37); Alanine Aminotransfer ALT/SGPT 42 U/L (16-61); Albumin, Serum 3.9 g/dL (3.2-5.0); Alkaline Phosphatase 57 U/L (45-117); Bilirubin, Direct 0.26 mg/dL (0.00-0.30); Cholesterol 167 mg/dL (200); Globulin 3.4 g/dL (2.2-4.2); High Density Lipoprotein 78 mg/dL; Protein, Total 7.3 g/dL (6.4-8.2); Triglycerides 215 mg/dL; Very Low Density Lipoprotein 43 mg/dL (5-40)
== END | disposition home or self-care (01) ==
LOC: MTLAB 08:28
PROVIDERS: PCP Family Medicine; Referring Provider Psychiatry & Neurology Neurology; Visit Provider Psychiatry & Neurology Neurology
DX: E78.00 Pure hypercholesterolemia, unspecified (principal)
CPT/HCPCS: 36415; 80061; 80076

== ENCOUNTER → 2023-04-06 | Outpatient (CLI) | payer OTHER, SELFPAY | END | disposition home or self-care (01) | PROVIDERS: PCP Family Medicine; Referring Provider Family Medicine; Visit Provider Family Medicine | DX: G47.10 Hypersomnia, unspecified (principal) | CPT/HCPCS: 95806 ==

== ENCOUNTER → 2023-04-22 | Outpatient (CLI) | payer OTHER, SELFPAY | END | disposition home or self-care (01) | LOC: SL 11:31 | PROVIDERS: PCP Family Medicine; Referring Provider Family Medicine; Visit Provider Family Medicine | DX: G47.10 Hypersomnia, unspecified (principal) | CPT/HCPCS: 95806 ==

== ENCOUNTER → 2023-06-10 | Outpatient (CLI) | payer OTHER, SELFPAY | END | disposition home or self-care (01) | LOC: SL 11:40 | PROVIDERS: PCP Family Medicine; Visit Provider Family Medicine | DX: Z00.00 Encounter for general adult medical examination without abnormal findings (principal) ==

== ENCOUNTER → 2023-09-27 | Outpatient (CLI) | payer OTHER, SELFPAY ==
[2023-09-27 16:29] LABS: Absolute Lymphocyte Count 1.12 X10^3/uL (0.83-4.51); Absolute Neutrophil Count 4.3 X10^3/uL (2.0-7.7); Basophil# 0.05 X10^3/uL; Basophil% 0.8 % (0-1); Eosinophil# 0.12 X10^3/uL; Hematocrit 44.8 % (40-54); Hemoglobin 14.8 g/dL (13.0-16.5); Lymphocyte # 1.12 X10^3/ul (0.83-4.51); Lymphocyte % 18.3 % (19-41); Mean Corpuscular Hgb 29.2 pg (27.0-32.0); Mean Corpuscular Volume 88.5 fL (80-94); Mean Platelet Vol. 9.5 fl (6.2-12.0); Monocyte# 0.51 X10^3/uL; Monocyte% 8.3 % (0-10); NRBC Flagged by Analyzer 0 % (0-5); Neutrophil # 4.29 X10^3/uL (2.7-7.7); Neutrophil % 70.1 % (47-70); Platelet Count 225 K/mm3 (150-450); RBC Distribution Width CV 12.7 % (11.6-14.6); RBC Distribution Width SD 41.1 fl (35.1-43.9); Red Blood Count 5.06 M/mm3 (4.6-6.2); White Blood Count 6.1 K/mm3 (4.4-11.0)
[2023-09-27 17:57] LABS: Anion Gap 5 (5-15); BUN 13 mg/dL (7-18); BUN/Creat Ratio 16.6 RATIO (10-20); Calcium,Total 9.4 mg/dL (8.5-10.1); Chloride 105 mmol/L (98-107); Creatinine, Serum 0.78 mg/dL (0.70-1.30); EST Glomerular Filtration Rate 106 mL/min (>60); Est Glom Filt Rate - Afr Amer 128 mL/min (>60); Glucose 103 mg/dL (74-106); Potassium 3.9 mmol/L (3.5-5.1); Sodium Level 137 mmol/L (136-145)
== END | disposition home or self-care (01) ==
LOC: BFHLAB 13:13
PROVIDERS: PCP Family Medicine; Visit Provider Family Medicine
DX: M10.9 Gout, unspecified (principal); Z51.81 Encounter for therapeutic drug level monitoring
CPT/HCPCS: 36415; 80048; 84550; 85025

== ENCOUNTER → 2023-11-24 | Outpatient (CLI) | payer OTHER, SELFPAY ==
[2023-11-24 10:45] LABS: AST(SGOT) 26 U/L (15-37); Alanine Aminotransfer ALT/SGPT 45 U/L (16-61); Albumin, Serum 4.1 g/dL (3.2-5.0); Alkaline Phosphatase 71 U/L (45-117); Bilirubin, Direct 0.24 mg/dL (0.00-0.30); Cholesterol 141 mg/dL (200); Globulin 3.3 g/dL (2.2-4.2); High Density Lipoprotein 56 mg/dL; Protein, Total 7.4 g/dL (6.4-8.2); Triglycerides 110 mg/dL; Very Low Density Lipoprotein 22 mg/dL (5-40)
== END | disposition home or self-care (01) ==
PROVIDERS: PCP Family Medicine; Referring Provider Psychiatry & Neurology Neurology; Visit Provider Psychiatry & Neurology Neurology
DX: E78.5 Hyperlipidemia, unspecified (principal)
CPT/HCPCS: 36415; 80061; 80076

== ENCOUNTER → 2024-01-19 | Outpatient (CLI) | payer OTHER, SELFPAY ==
[2024-01-19 12:56] LABS: Vitamin B12 629 pg/mL (211-911)
[2024-01-19 13:50] LABS: Hemoglobin A1c 5.5 % (3.8-5.6)
[2024-01-19 13:54] LABS: CRP < 2.90 mg/L (0.0-3.0); Rheumatoid Factor < 10.0 IU/mL (<15); Uric Acid 5.4 mg/dL (3.5-7.2)
[2024-01-20 17:07] LABS: Anti-Nuclear Antibody Test Positive (.)
[2024-01-25 01:07] LABS: Lyme IgG P18 Ab Absent (.); Lyme IgG P23 Ab Absent (.); Lyme IgG P28 Ab Absent (.); Lyme IgG P30 Ab Absent (.); Lyme IgG P39 Ab Absent (.); Lyme IgG P41 Ab Present (.); Lyme IgG P45 Ab Absent (.); Lyme IgG P58 Ab Present (.); Lyme IgG P66 Ab Absent (.); Lyme IgG P93 Ab Absent (.); Lyme IgG WB Interpretation Negative (.); Lyme IgM P23 Ab Absent (.); Lyme IgM P39 Ab Absent (.); Lyme IgM P41 Ab Present (.); Lyme IgM WB Interpretation Negative (.)
== END | disposition home or self-care (01) ==
LOC: BFHLAB 10:36
PROVIDERS: PCP Family Medicine; Referring Provider Family Medicine; Visit Provider Family Medicine
DX: M10.9 Gout, unspecified (principal); M06.4 Inflammatory polyarthropathy; R63.1 Polydipsia; G62.9 Polyneuropathy, unspecified
CPT/HCPCS: 36415; 82607; 83036; 84550; 86038; 86140; 86431; 86617

== ENCOUNTER → 2024-01-25 | Outpatient (CLI) | payer OTHER, SELFPAY ==
--- NOTE | 2024-01-25 09:52 | RAD_ITS ---
STUDY: X-RAY - RIGHT FOOT CLINICAL: Male, 63 years old. Pain and swelling. TECHNIQUE: 3 view(s) of the foot. COMPARISON: None. FINDINGS: Inferior calcaneal spur. Normal visualized subtalar, talonavicular, calcaneocuboid, tarsal and tarsometatarsal articulations. Mild arthrosis of the MTP and IP joints with minimal hammertoe deformities. Normal soft tissues. 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 No other abnormality. Electronically Signed: Balaji Hall MD at 10:07 EDT ,
== END | disposition home or self-care (01) ==
LOC: MTRAD 09:42
PROVIDERS: PCP Family Medicine; Referring Provider Family Medicine; Visit Provider Family Medicine
DX: M10.9 Gout, unspecified (principal); M79.89 Other specified soft tissue disorders; M79.675 Pain in left toe(s)
CPT/HCPCS: 73630

== ENCOUNTER → 2024-02-09 | Outpatient (CLI) | payer OTHER, SELFPAY ==
[2024-02-09 11:53] LABS: Thyroid Stim Hormone (TSH) 1.04 uIU/mL (0.358-3.74); Uric Acid 4.9 mg/dL (3.5-7.2)
[2024-02-10 15:09] LABS: ANTINUCLEAR ANTIBODIES DIRECT Negative (Negative)
[2024-02-14 15:07] LABS: Free Kappa Light Chains 10.8 mg/L (3.3-19.4); Free Lambda Light Chains 9.5 mg/L (5.7-26.3); Vitamin B1, Thiamine 147.9 nmol/L (66.5-200.0)
== END | disposition home or self-care (01) ==
PROVIDERS: PCP Family Medicine; Referring Provider Psychiatry & Neurology Neurology; Visit Provider Psychiatry & Neurology Neurology
DX: R76.8 Other specified abnormal immunological findings in serum (principal); R20.2 Paresthesia of skin
CPT/HCPCS: 36415; 82746; 83883; 84425; 84443; 84550; 86038; 86225; 86235

== ENCOUNTER → 2024-03-08 | Outpatient (CLI) | payer OTHER, SELFPAY ==
--- NOTE | 2024-03-08 12:36 | NEURO ---
NCS and/or EMG Patient Report Ordering Doctor: Stanley Gomez DATE OF SERVICE: 03/08/24 Fredi presents for electrodiagnostic testing of the lower limbs. He reports numbness and tingling in both feet. Electrodiagnostic findings: Left peroneal motor nerve demonstrates normal distal latency, amplitude and conduction velocity. Right peroneal motor nerve demonstrates normal distal latency, amplitude with reduced conduction velocity. No significant drop in conduction across the fibular head. Left tibial motor nerve demonstrates normal distal latency, amplitude and conduction velocity. Right tibial motor nerve demonstrates normal distal latency, amplitude and conduction velocity. Prolonged H?reflex and F?waves bilaterally. There is a prolonged superficial peroneal latency bilaterally. Normal sural and plantar responses. Needle EMG testing was performed the lower limbs. All muscles tested showed no evidence of denervation with normal motor unit action potentials. Electrodiagnostic impression: This an abnormal study in the lower limbs. 1. 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 There is no evidence of axonal loss. 2. There is no electrodiagnostic evidence for lumbosacral radiculopathy. Multi Select Codes Neurology Neurology Interp Codes: 59931-44 Musc test done w/n test comp (interp) (2) and 52028-26 Nr cndj test 11-12 studies (interp)
== END | disposition home or self-care (01) ==
LOC: PSN 06:41
PROVIDERS: PCP Family Medicine; Referring Provider Psychiatry & Neurology Neurology; Visit Provider Psychiatry & Neurology Neurology
DX: R20.2 Paresthesia of skin (principal)
CPT/HCPCS: 95886; 95912

== ENCOUNTER → 2024-09-22 | Outpatient (CLI) | payer OTHER, SELFPAY ==
[2024-09-22 12:40] LABS: ALB/GLOB Ratio 1.3 RATIO (0.9-2.4); AST(SGOT) 28 U/L (15-37); Alanine Aminotransfer ALT/SGPT 48 U/L (16-61); Albumin, Serum 4.1 g/dL (3.2-5.0); Alkaline Phosphatase 72 U/L (45-117); Anion Gap 7 (5-15); BUN 20 mg/dL (7-18); BUN/Creat Ratio 28.8 RATIO (10-20); Calcium,Total 9.3 mg/dL (8.5-10.1); Chloride 107 mmol/L (98-107); Cholesterol 142 mg/dL (200); EST Glomerular Filtration Rate 122 mL/min (>60); Est Glom Filt Rate - Afr Amer 147 mL/min (>60); Globulin 3.2 g/dL (2.2-4.2); Glucose 98 mg/dL (74-106); High Density Lipoprotein 64 mg/dL; Protein, Total 7.3 g/dL (6.4-8.2); Sodium Level 139 mmol/L (136-145); Triglycerides 79 mg/dL; Very Low Density Lipoprotein 16 mg/dL (5-40)
== END | disposition home or self-care (01) ==
PROVIDERS: PCP Family Medicine; Referring Provider Psychiatry & Neurology Neurology; Visit Provider Psychiatry & Neurology Neurology
DX: E78.5 Hyperlipidemia, unspecified (principal)
CPT/HCPCS: 36415; 80053; 80061

== ENCOUNTER → 2025-03-21 | Outpatient (CLI) | payer OTHER, SELFPAY ==
[2025-03-21 07:20] LABS: Red Blood Cells-Urine 0 SEEN /hpf (0-5)
--- OUTSIDE RECORDS SUMMARY | 2025-03-21 07:31 | XMS RPT_ITS | CCD ---
Author Organization [facility] Care Team Providers Care Baker Name Role Phone RUSSELL SMITH Admitting Unavailable SARAHRUSSELL MACHADO Attending Unavailable RUSSELL SMITH Primary Care Unavailable SEAN NGUYEN Referring Unavailable Dr. Chapito Drake Primary Care Provider Dr. Chapito Drake Referring Provider Francia AIRCRAFT AVIONICS TECHNICIAN, TARA Valdez Attending Provider Dr. Chapito Drake Primary Care Provider Dr. Chapito Drake Referring Provider Dr. Stanley Gomez Attending Provider Dr. Chapito Drake DO Primary Care Provider Dr. Chapito Drake DO Referring Provider [phone] Dr. Stanley Gomez MD Attending Provider Chapito Drake Referring Unavailable Stanley Gomez Attending Unavailable Chapito Drake Primary Care Unavailable Chapito Drake Primary Care Unavailable Chapito Drake Consulting Unavailable Stanley Gomez Referring Unavailable Stanley Gomez Attending Unavailable Stanley Gomez Attending Unavailable Stanley Gomez Referring Unavailable Chapito Drake Primary Care Unavailable Stanley Gomez Attending Unavailable Chapito Drake Primary Care Unavailable Stanley Gomez Referring Unavailable Stanley Gomez Attending Unavailable Chapito Drake Referring Unavailable Chapito Drake Primary Care Unavailable Chapito Drake Referring Unavailable Stanley Gomez Attending Unavailable Chapito Drake Primary Care Unavailable Stanley Gomez Consulting Unavailable Chapito Drake Primary Care Unavailable Solo Card Attending Unavailable Stanley Gomez Referring Unavailable CHAPITO DRAKE A Primary Care Unavailable MARIA TERESA GRUBER Referring Unavailable PRAVEENA ROWLEY JR, JR Attending Linda banerjee SELF, SELF Referring Unavailable CHAPITO DRAKE Primary Care Unavailable PRAVEENA ROWLEY JR, JR Attending Chapito Natarajan DO Primary Care Provider Allergies Allergy Classification Reported Allergen(s) Allergy Type Date of Onset Reaction(s) Facility (4 sources) Penicillins Propensity to adverse reactions 2 [facility] (1 source) Penicillins Drug allergy (disorder) 5 [facility] (1 source) Penicillins Propensity to adverse reactions to drug 7 [facility] Medications Current Medications Medication Drug Class(es) Dates Sig (Normalized) Sig (Original) aspirin 81 mg chewable tablet (8 sources) Platelet Aggregation Inhibitor, Nonsteroidal Anti-inflammatory Drug Start: 11-06-2020 End: 11-07-2020 take 1 tablet by mouth once daily Aspirin 81 MG tablet,chewable Active 81 mg PO DAILY@0800 30 November 07, 2020 11:58am atorvastatin 20 mg oral tablet (10 sources) HMG-CoA Reductase Inhibitor Start: 05-13-2022 End: 02-06-2025 take 1 tablet by mouth once daily Atorvastatin 20 MG tablet Take 1 tablet by mouth daily. 02/06/2025 Active citalopram 20 mg oral tablet (9 sources) Serotonin Reuptake Inhibitor Start: 02-01-2025 take 1 tablet by mouth once daily Citalopram 20 MG tablet Take 1 tablet by mouth daily. 02/01/2025 Active Start: 11-06-2020 End: 11-07-2020 take 1 tablet by mouth once daily Citalopram 20 MG tablet Active 20 mg PO DAILY November 07, 2020 11:58am febuxostat 40 mg oral tablet (1 source) Xanthine Oxidase Inhibitor Start: 01-03-2025 take 1 tablet by mouth once daily febuxostat 40 MG tablet Take 1 tablet by mouth daily. 01/03/2025 Active 24 hr metoprolol succinate 25 mg extended release oral tablet (9 sources) beta-Adrenergic Alexander Start: 02-06-2025 take 1 tablet by mouth once daily Metoprolol succinate 25 MG tablet XL Take 1 tablet by mouth daily. 02/06/2025 Active Start: 11-06-2020 End: 11-07-2020 take 1 tablet by mouth once daily Metoprolol Succinate 25 MG tablet extended release 24 hr Active 25 mg PO DAILY November 07, 2020 11:58am minocycline 100 mg oral capsule (9 sources) Tetracycline-class Drug Start: 11-06-2020 End: 02-06-2025 take 1 capsule by mouth once daily Minocycline 100 MG capsule Take 1 capsule by mouth daily. 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 , History of gout , Fatigue, unspecified type , Family history of systemic lupus erythematosus , Family history of rheumatoid arthritis , Primary hypertension , Dyslipidemia , Hip pain, right , Greater trochanteric bursitis of right hip 8 po q AM for 1 day decrease by 1 pill a day until off - to be used on a PRN basis 36 tablet 5 02/07/2025 Active Completed/Discontinued Medications Medication Drug Class(es) Dates Sig (Normalized) Sig (Original) allopurinol 100 mg oral tablet (1 source) Xanthine Oxidase Inhibitor Start: 02-18-2024 End: 02-07-2025 take 2 tablets by mouth once daily Allopurinol 100 MG tablet Take 2 tablets by mouth daily. 02/18/2024 02/07/2025 Discontinued (Medication Reconciliation (suppress cancel msg)) cetirizine hydrochloride 10 mg oral tablet (3 sources) Histamine-1 Receptor Antagonist Start: 02-03-2023 End: 02-09-2024 take 1 tablet by mouth once daily as needed for congestion Cetirizine 10 mg tablet Discontinued 10 mg PO DAILY as needed for sinus allergies/congestion February 03, 2023 12:00am February 09, 2024 8:13am gabapentin 300 mg oral capsule (3 sources) Anti-epileptic Agent Start: 08-14-2024 End: 02-06-2025 take 1 capsule by mouth twice daily Gabapentin 300 mg capsule Discontinued 300 mg PO TWICE A DAY October 11, 2024 3:05pm February 06, 2025 8:13am loratadine 10 mg oral tablet (12 sources) Start: 02-25-2021 End: 02-03-2023 take 1 tablet by mouth once daily as needed Loratadine 10 mg tablet Discontinued 10 mg PO DAILY as needed for allergy symptoms January 19, 2022 9:02am February 03, 2023 7:09pm meclizine hydrochloride 25 mg oral tablet (4 sources) Antiemetic Start: 11-07-2020 End: 12-07-2020 take 1 tablet by mouth three times daily as needed Meclizine 25 MG tablet Discontinued 25 mg PO 3 TIMES DAILY NEEDED as needed for Vertigo November 07, 2020 1:00am December 06, 2020 12:00am December 07, 2020 12:03am Multivitamin With Minerals (3 sources) Start: 11-06-2020 End: 11-07-2020 Multivitamin With Minerals Discontinued 1 EACH PO DAILY November 06, 2020 1:00am November 07, 2020 12:04pm Multivitamin With Minerals 1 EACH tablet (1 source) Start: 11-06-2020 End: 11-07-2020 take 1 tablet by mouth once daily Multivitamin With Minerals 1 EACH tablet Discontinued 1 NMA PO DAILY November 06, 2020 1:00am November 07, 2020 12:04pm Problems Active Problems Problem Classification Problem Date Documented Date Episodic/Chronic Conditions associated with dizziness or vertigo (9 sources) Vertiginous syndrome; Translations: [Unspecified disorder of vestibular function, unspecified ear] Episodic Disorders of lipid metabolism (13 sources) Hypercholesterolemia; Translations: [Pure hypercholesterolemia, unspecified] Onset: 10-12-2024 05-13-2022 Chronic Essential hypertension (4 sources) Essential (primary) hypertension; Translations: [Essential hypertension] Onset: 02-07-2025 Chronic Gout and other crystal arthropathies (1 source) Gout; Translations: [Gout, unspecified] 02-09-2024 Chronic Malaise and fatigue (4 sources) Other fatigue; Translations: [Fatigue] Onset: 02-07-2025 Episodic Nausea and vomiting (4 sources) Nausea and vomiting; Translations: [Nausea with vomiting, unspecified] 11-06-2020 Episodic Osteoarthritis (12 sources) Primary osteoarthritis, right hand; Translations: [Primary osteoarthritis, left hand] Onset: 02-07-2025 Chronic Other aftercare (2 sources) Other correction (current) drug therapy; Translations: [Other correction (current) drug therapy] Onset: 02-07-2025 Episodic Other aftercare (2 sources) long-term (current) use of antibiotics; Translations: [ratings analyst (current) use of antibiotics] Onset: 02-07-2025 Episodic Other aftercare (2 sources) Drug therapy finding; Translations: [Other correction (current) drug therapy] Onset: 02-07-2025 02-07-2025 Episodic Other aftercare (2 sources) Long-term current use of antibiotic; Translations: [long-term (current) use of antibiotics] Onset: 02-07-2025 02-07-2025 Episodic Other aftercare (1 source) Long-term current use of systemic steroid; Translations: [ratings analyst (current) use of systemic steroids] Onset: 02-07-2025 02-07-2025 Episodic Other and ill-defined cerebrovascular disease (5 sources) Cerebrovascular disease; Translations: [Cerebrovascular disease, unspecified] 02-03-2023 Chronic Other and ill-defined cerebrovascular disease (2 sources) Cerebrovascular disease, unspecified; Translations: [Unspecified cerebrovascular disease] Chronic Other bone disease and musculoskeletal deformities (2 sources) Disorder of bone, unspecified; Translations: [Disorder of bone, unspecified] Onset: 02-07-2025 Episodic Other bone disease and musculoskeletal deformities (2 sources) Disorder of cartilage, unspecified; Translations: [Disorder of cartilage, unspecified] Onset: 02-07-2025 Episodic Other bone disease and musculoskeletal deformities (2 sources) Disorder of bone and articular cartilage; Translations: [Disorder of bone, unspecified] Onset: 02-07-2025 02-07-2025 Episodic Other connective tissue disease (2 sources) Other shoulder lesions, right shoulder; Translations: [Other shoulder lesions, right shoulder] Onset: 02-07-2025 Episodic Other connective tissue disease (2 sources) Other shoulder lesions, left shoulder; Translations: [Other shoulder lesions, left shoulder] Onset: 02-07-2025 Episodic Other connective tissue disease (2 sources) Personal history of other diseases of the musculoskeletal system and connective tissue; Translations: [Personal history of other diseases of the musculoskeletal system and connective tissue] Onset: 02-07-2025 Episodic Other connective tissue disease (2 sources) Trochanteric bursitis, right hip; Translations: [Trochanteric bursitis, right hip] Onset: 02-07-2025 Episodic Other connective tissue disease (2 sources) Bilateral rotator cuff tendinitis; Translations: [Other shoulder lesions, right shoulder] Onset: 02-07-2025 02-07-2025 Episodic Other connective tissue disease (2 sources) H/O: gout; Translations: [Personal history of other diseases of the musculoskeletal system and connective tissue] Onset: 02-07-2025 02-07-2025 Episodic Other connective tissue disease (2 sources) Trochanteric bursitis; Translations: [Trochanteric bursitis, right hip] Onset: 02-07-2025 02-07-2025 Episodic Other nervous system disorders (2 sources) Polyneuropathy; Translations: [Polyneuropathy, unspecified] 08-14-2024 Chronic Other nervous system disorders (2 sources) Other chronic pain; Translations: [Other chronic pain] Onset: 02-07-2025 Chronic Other nervous system disorders (4 sources) Trigeminal neuralgia; Translations: [Trigeminal neuralgia] 01-19-2022 Episodic Other nervous system disorders (4 sources) Numbness of face; Translations: [Anesthesia of skin] 11-06-2020 Episodic Other nervous system disorders (1 source) Trigeminal neuralgia; Translations: [Trigeminal neuralgia] Episodic Other non-traumatic joint disorders (2 sources) Pain in right shoulder; Translations: [Pain in right shoulder] Onset: 02-07-2025 Episodic Other non-traumatic joint disorders (2 sources) Pain in left shoulder; Translations: [Pain in left shoulder] Onset: 02-07-2025 Episodic Other non-traumatic joint disorders (2 sources) Pain in right hip; Translations: [Pain in right hip] Onset: 02-07-2025 Episodic Other non-traumatic joint disorders (2 sources) Bilateral chronic pain of upper limbs; Translations: [Pain in right shoulder] Onset: 02-07-2025 02-07-2025 Episodic Other non-traumatic joint disorders (2 sources) Hip pain; Translations: [Pain in right hip] Onset: 02-07-2025 02-07-2025 Episodic Other upper respiratory disease (4 sources) Sinusitis; Translations: [Allergic rhinitis, unspecified] 02-25-2021 Chronic Other upper respiratory disease (3 sources) Congestion of nasal sinus; Translations: [Nasal congestion] 02-03-2023 Episodic Other upper respiratory disease (1 source) Nasal congestion; Translations: [Other disease of nasal cavity and sinuses] 02-02-2023 Episodic Residual codes; unclassified (2 sources) Family history of other diseases of the musculoskeletal system and connective tissue; Translations: [Family history of other diseases of the musculoskeletal system and connective tissue] Onset: 02-07-2025 Episodic Residual codes; unclassified (2 sources) Family history of arthritis; Translations: [Family history of arthritis] Onset: 02-07-2025 Episodic Residual codes; unclassified (2 sources) Family history of systemic lupus erythematosus; Translations: [Family history of other diseases of the musculoskeletal system and connective tissue] Onset: 02-07-2025 02-07-2025 Episodic Residual codes; unclassified (2 sources) FH: Rheumatoid arthritis; Translations: [Family history of arthritis] Onset: 02-07-2025 02-07-2025 Episodic Spondylosis; intervertebral disc disorders; other back problems (4 sources) Cervicalgia; Translations: [Neck pain] Onset: 02-07-2025 Episodic Past or Other Problems Problem Classification Problem Date Documented Date Episodic/Chronic Immunizations and screening for infectious disease (4 sources) Contact with and (suspected) exposure to other viral communicable diseases; Translations: [Other specified abnormal immunological findings in serum] Onset: 06-06-2020 Episodic Other nervous system disorders (2 sources) Paresthesia of skin; Translations: [Paresthesia of skin] Onset: 03-21-2024 Episodic Results Test Name Value Interpretation Reference Range Facility Neurology Visit Reporton Neurology Visit Report [facility] [address] [place] [address], [address] [place] [address] OFFICE VISIT Date of Service: 02/06/25 MR#: [id number] Acct: [id number] Name: FREDI AGUILARBernice Morgan Rep #: [id number] : [id number] Provider: Dr. Stanley ace MD Age/Sex: 64/M Location: [facility] [place] Status: Signed HPI [facility] Chief Complaint: Details: Interim History: Fredi returns for follow-up. He has a history of hypertension and tachycardia. Since the , he has been experiencing periods of intermittent dizziness that he described as positional disequilibrium. Individual episodes may last up to 3 days each. These episodes began in the . He reported that on evaluation by an ENT specialist, left sided hearing loss was noted. He has left sided tinnitus. Over the years, he has been treated with meclizine for his dizziness and this has been of benefit. In November 2020, he experienced a recurrence of his positional disequilibrium, in addition to an episode of severe left-sided facial pain (primarily periorbital) that resolved within 5 minutes. He also had associated, transient left-sided facial numbness and tingling that resolved over hours. He also had associated transient nausea. He had a recurrence of his left-sided facial pain the following day, which lasted several minutes. He was hospitalized for possible cerebrovascular ischemia on the day his dizziness began in November 2020, and a head MRI at that time did not reveal any evidence of acute cerebrovascular ischemic event or other acute pathology. A small left subcortical chronic small vessel ischemic white matter lesion near the left posterior horn of the lateral ventricle was noted. A head and neck CTA were unremarkable. A lipid profile was unremarkable. A subsequent lipid profile was checked in 2021 revealed an elevated cholesterol. Atorvastatin was initiated and he has tolerated this well. His last lipid profile (September 2024): Was normal. He has been taking aspirin 81mg daily since around 2019 due to a family history of heart disease. His last lipid profile earlier in 2023 was normal. He has not had symptoms suggestive of cerebrovascular ischemia. 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 He has not had recurrence of facial pain. He subsequently received a shingles vaccine. Over the years, he has had mild headaches without associated nausea that have occurred about once per year. He does not have any photophobia or phonophobia. He reported having a feeling of left ear fullness and attributes this to seasonal allergies. He occasionally has mild dizziness with his allergy symptoms. Loratadine was not of clear benefit for his allergies/sinus symptoms. He reported that he saw his eye doctor in 2020 for fluctuating blurring of vision and the patient reported that his vision was felt to be stable and there was no acute ocular pathology. He has gout affecting the feet. He has been prescribed colchicine and allopurinol. Allopurinol was then discontinued by his primary care provider. On his own the patient discontinued colchicine. He is prescribed febuxostat for his gout. He has a mild sensorimotor polyneuropathy. He has occasional tingling in the feet and a cold feeling in the feet that occur at night. On assessment today, dorsalis pedis pulses are +2 bilaterally. He denied low back pain. In the past, he drank 3-4 cans of beer daily and had been consuming this amount since around 2016; he subsequently curtailed his alcohol consumption. His laboratory studies reveal a positive CODY; a subsequent CODY check in February 2024 was negative. Gabapentin was of benefit for his lower extremity neuropathic pain however the neuropathic discomfort in his feet has been intermittent and mild. He has discontinued gabapentin and does not feel the need to take any medication for the occasional tingling and cold sensation in the feet. Physical Exam: Neuro: The patient is awake and alert and responds appropriately; speech is fluent; motor strength is 5/5 in the foot dorsiflexors bilaterally Neck: No bruits Heart: regular rate and rhythm Extremities: No cyanosis or edema is noted in his feet; dorsalis pedis pulses are +2 bilaterally Supplemental Info CMP, Hemoglobin A1c (06/12/20): 5.6 CBCD, PT/INR, BMP (11/06/20): GLU [address] 11/06/20 FINDINGS: Normal soft tissue structures. Normal calvarium. There is mild cerebral atrophy with widening of the extra-axial spaces and ventricular dilatation. Normal white matter tracts of the cerebral hemispheres. Normal basal ganglia and thalami. Normal brainstem. Normal cerebellum. There is no intracranial hemorrhage. There are no findings of an acute ischemic infarction. Normal visualized paranasal sinuses. IMPRESSION: Hr Consultant (more content not included)... Normal [facility] Comprehensive Metabolic Prof ilon 09-22-2024 Albumin [Mass/Vol] 4.1 g/dL Normal 3.2-5.0 [facility] Comment on above: Performed By: #### L 500.4050, L500.4100 #### [facility] [address] [place], [address] Albumin/Globulin [Mass ratio] 1.3 {ratio} Normal 0.9-2.4 [facility] Comment on above: Performed By: #### L 500.4050, L500.4100 #### [facility] [address] [place], [address] ALK P 72 U/L Normal 45-117 [facility] Comment on above: Performed By: #### L 500.4050, L500.4100 #### [facility] [address] [place], [address] ALT [Catalytic activity/Vol] 48 U/L Normal 16-61 [facility] Comment on above: Performed By: #### L [id number], L500.4100 #### [facility] [address] [place], [address] AST [Catalytic activity/Vol] 28 U/L Normal 15-37 [facility] Comment on above: Performed By: #### L 500.4050, L500.4100 #### [facility] [address] [place], [address] Bilirubin [Mass/Vol] 1.60 mg/dL High 0.20-1.00 [facility] Comment on above: Result Comment: For patients on eltrombopag therapy, use of Dimension [place] TBIL is not recommended. Performed By: #### L 500.4050, L500.4100 #### [facility] [address] [place], [address] BUN/CRE 28.8 RATIO High 10-20 [facility] Comment on above: Performed By: #### L 500.4050, L500.4100 #### [facility] [address] [place], [address] CA,Total 9.3 mg/dL Normal 8.5-10.1 [facility] Comment on above: Performed By: #### L 500.4050, L500.4100 #### [facility] [address] [place], [address] Chloride [Moles/Vol] 107 mmol/L Normal 98-107 [facility] Comment on above: Performed By: #### L 500.4050, L500.4100 #### [facility] [address] [place], [address] CO2 [Moles/Vol] 25.0 mmol/L Normal 21.0-32.0 [facility] Comment on above: Performed By: #### L 500.4050, L500.4100 #### [facility] [address] [place], [address] Creatinine [Mass/Vol] 0.70 mg/dL Normal 0.70-1.30 [facility] Comment on above: Result Comment: The validity of the calculated GFR GFRAA in patients over 70 years has not been determined. Clinical correlation is essential. Performed By: #### L 500.4050, L500.4100 #### [facility] [address] [place], [address] EST GFR - AA 147 mL/min Normal >60 [facility] Comment on above: Result Comment: Afri can [place] GFR Calc Performed By: #### L 500.4050, L500.4100 #### [facility] [address] [place], [address] GAP 7 Normal 5-15 [facility] Comment on above: Performed By: #### L 500.4050, L500.4100 #### [facility] [address] [place], [address] GFR/1.73 sq M.predicted among non-blacks MDRD (S/P/Bld) [Vol rate/Area] 122 mL/min/{1.73_m2} Normal >60 [facility] Comment on above: Result Comment: Non- GFR Calc Performed By: #### L 500.4050, L500.4100 #### [facility] [address] [place], [address] Globulin (S) [Mass/Vol] 3.2 g/dL Normal 2.2-4.2 [facility] Comment on above: Performed By: #### L 500.4050, L500.4100 #### [facility] [address] [place], [address] Glucose [Mass/Vol] 98 mg/dL Normal 74-106 [facility] Comment on above: Performed By: #### L 500.4050, L500.4100 #### [facility] [address] [place], [address] Potassium [Moles/Vol] 4.0 mmol/L Normal 3.5-5.1 [facility] Comment on above: Performed By: #### L 500.4050, L500.4100 #### [facility] [address] [place], [address] Sodium [Moles/Vol] 139 mmol/L Normal 136-145 [facility] Comment on above: Performed By: #### L 500.4050, L500.4100 #### [facility] [address] [place], [address] T PROT 7.3 g/dL Normal 6.4-8.2 [facility] Comment on above: Performed By: #### L 500.4050, L500.4100 #### [facility] [address] [place], [address] Urea nitrogen [Mass/Vol] 20 mg/dL High 7-18 [facility] Comment on above: Performed By: #### L 500.4050, L500.4100 #### [facility] [address] [place], [address] Lipid Profileon 09-22-2024 Cholesterol [Mass/Vol] 142 mg/dL Normal 200 [facility] Comment on above: Result Comment: <200 mg/dL Desirable 200-240 mg/dL Borderline >240 mg/dL High Risk Performed By: #### L 500.4050, L500.4100 #### [facility] [address] [place], [address] Cholesterol in HDL [Mass/Vol] 64 mg/dL Normal [facility] Comment on above: Result Comment: The drugs N-Acetylcysteine and Metamizole may falsely depress this assay. Reference Range HDL <40 mg/dL Low HDL Cholesterol HDL >or= 60 mg/dL High HDL Cholesterol Performed By: #### L 500.4050, L500.4100 #### [facility] [address] [place], [address] Cholesterol in LDL [Mass/Vol] 62 mg/dL Normal 0-130 [facility] Comment on above: Performed By: #### L 500.4050, L500.4100 #### [facility] [address] [place], [address] Cholesterol in VLDL [Mass/Vol] 16 mg/dL Normal 5-40 [facility] Comment on above: Performed By: #### L 500.4050, L500.4100 #### [facility] [address] [place], [address] Triglyceride [Mass/Vol] 79 mg/dL Normal [facility] Comment on above: Result Comment: The drugs N-Acetylcysteine and Metamizole may falsely depress this assay. Serum Triglycerides Reference Interval Normal <150 mg/dL Borderline high 150 - 199 mg/dL High 200 - 499 mg/dL Very High > or = 500 mg/dL Performed By: #### L 500.4050, L500.4100 #### [facility] [address] [place], [address] Neurology Visit Reporton Neurology Visit Report [facility] [address] [place] [address], [address] [place] [address] OFFICE VISIT Date of Service: 08/14/24 MR#: [id number] Acct: [id number] Name: FREDI AGUILAR Jr. Rep #: [id number] : 1960 Provider: Dr. Stanley ace MD Age/Sex: 63/M Location: [facility] Status: Signed with Addenda ADDENDUM by Dr. Stanley Gomez MD on 10/11/24 at 1405 Addendum Addendum (10/11/2024): The patient is taking gabapentin 300 mg nightly for his neuropathic pain. He is experiencing daytime neuropathic pain. Gabapentin will be increased to 300 mg twice daily. 10/11/24 1405 Date Stanley Gomez MD cc: * Signed HPI HPI Chief Complaint: Details: Interim History: Fredi returns for follow-up. He has a history of hypertension and tachycardia. Since the , he has been experiencing periods of intermittent dizziness that he described as positional disequilibrium. Individual episodes may last up to 3 days each. He has had about 12 occurrences of this intermittent dizziness since the . He reported that on evaluation by an ENT specialist, left sided hearing loss was noted. He has left sided tinnitus. Over the years, he has been treated with meclizine for his dizziness and this has been of benefit. In November 2020, he experienced a recurrence of his positional disequilibrium, in addition to an episode of severe left-sided facial pain (primarily periorbital) that resolved within 5 minutes. He also had associated, transient left-sided facial numbness and tingling that resolved over hours. He also had associated transient nausea. He had a recurrence of his left-sided facial pain the following day, which lasted several minutes. He was hospitalized for possible cerebrovascular ischemia on the day his dizziness began in November 2020, and a head MRI at that time did not reveal any evidence of acute cerebrovascular ischemic event or other acute pathology. A small left subcortical chronic small vessel ischemic white matter lesion near the left posterior horn of the lateral ventricle was noted. A head and neck CTA were unremarkable. A lipid profile was unremarkable. A subsequent lipid profile was checked in 2021 revealed an elevated cholesterol. Atorvastatin was initiated and he has tolerated this well. He has been taking aspirin 81mg daily since around 2018 due to a family history of heart disease. His last lipid profile earlier in 2023 was normal. He has not had symptoms suggestive of cerebrovascular ischemia. 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 He has not had recurrence of facial pain. He subsequently received a shingles vaccine. Over the years, he has had mild headaches without associated nausea that have occurred about once per year. He does not have any photophobia or phonophobia. He describes having a feeling of left ear fullness and attributes this to seasonal allergies. He occasionally has mild dizziness with his allergy symptoms. Loratadine was not of clear benefit for his allergies/sinus symptoms. He reported that he saw his eye doctor in 2020 for fluctuating blurring of vision and the patient reported that his vision was felt to be stable and there was no acute ocular pathology. He has gout affecting the feet. He has been prescribed colchicine and allopurinol. Allopurinol was then discontinued by his primary care provider. On his own the patient discontinued colchicine. He is prescribed febuxostat for his gout. He has a mild sensorimotor polyneuropathy. He has tingling in the feet and a cold feeling in the feet that occur at night. On assessment in February 2024 dorsalis pedis pulses were +2 bilaterally. He denied low back pain. In the past, he drank 3-4 cans of beer daily and had been consuming this amount since around 2016; he curtailed his alcohol consumption and has had 2 cans of beer since September 2023. His laboratory studies reveal a positive CODY; a subsequent CODY check in February 2024 was negative. Physical Exam: Neuro: The patient is awake and alert and responds appropriately; speech is fluent; motor strength is 5/5 in the foot dorsiflexors bilaterally Neck: No bruits Heart: regular rate and rhythm Supplemental Info CMP, Hemoglobin A1c (06/12/20): 5.6 CBCD, PT/INR, BMP (11/06/20): GLU [address] 11/06/20 FINDINGS: Normal soft tissue structures. Normal calvarium. There is mild cerebral atrophy with widening of the extra-axial spaces and ventricular dilatation. Normal white matter tracts of the cerebral hemispheres. Normal basal ganglia and thalami. Normal brainstem. Normal cerebellum. There is no intracranial hemorrhage. There are no findings of an acute ischemic infarction. Normal visualize (more content not included)... Normal [facility] NCS and/or EMG Patienton NCS and/or EMG Patient [facility] Pulmonary Services/Neurology [address] [place] [address] MR#: [id number] Acct: [id number] Name: FREDI AGUILAR Jr. Rep #: [id number] : 1960 63 From: Solo Card MD Referring Dr: Stanley Gomez MD Status: REG CL I Location: [facility] Date: 03/08/24 Sex: M C NCS and/or EMG Patient Report Ordering Doctor: Stanley Gomez DATE OF SERVICE: 03/08/24 Fredi presents for electrodiagnostic testing of the lower limbs. He reports numbness and tingling in both feet. Electrodiagnostic findings: Left peroneal motor nerve demonstrates normal distal latency, amplitude and conduction velocity. Right peroneal motor nerve demonstrates normal distal latency, amplitude with reduced conduction velocity. No significant drop in conduction across the fibular head. Left tibial motor nerve demonstrates normal distal latency, amplitude and conduction velocity. Right tibial motor nerve demonstrates normal distal latency, amplitude and conduction velocity. Prolonged H???reflex and F???waves bilaterally. There is a prolonged superficial peroneal latency bilaterally. Normal sural and plantar responses. Needle EMG testing was performed the lower limbs. All muscles tested showed no evidence of denervation with normal motor unit action potentials. Electrodiagnostic impression: This an abnormal study in the lower limbs. 1. 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 There is no evidence of axonal loss. 2. There is no electrodiagnostic evidence for lumbosacral radiculopathy. Multi Select Codes Neurology Neurology Interp Codes: 84739-58 Musc test done w/n test comp (interp) (2) and 31840-61 Nrv cndj test 11-12 studies (interp) 03/08/24 1239 Date Solo Card MD CC: Dr. Solo Card MD; Dr. Chapito Drake DO; Dr. Stanley Gomez MD Date Dictated: 03/08/24 1236 Date Transcribed: 03/08/241235 Hvac Lead: AA Signed Normal [facility] [place] Lambda Light Chainson 02-14-2024 FR KAPPA LT CHN 10.8 mg/L Normal 3.3-19.4 [facility] Comment on above: Order Comment: Test( s) 872971-Rip. B1, Whole Blood was developed and its performance characteristics determined by [facility]. It has not been cleared or approved by the Food and Drug Administration. MULTI VITAMIN Performed By: #### L 3100.5450, L3130.0010, L501.1400, L506.0250, L501.9520, L3300.8000 #### [facility] [address] [place], [address] FR LAMBDA LT CH 9.5 mg/L Normal 5.7-26.3 [facility] Comment on above: Order Comment: Test( s) 899562-Lvy. B1, Whole Blood was developed and its performance characteristics determined by [facility]. It has not been cleared or approved by the Food and Drug Administration. MULTI VITAMIN Performed By: #### L 3100.5450, L3130.0010, L501.1400, L506.0250, L501.9520, L3300.8000 #### [facility] [address] [place], [address] KAPPA/LAMBDA % 1.14 Normal 0.26-1.65 [facility] Comment on above: Order Comment: Test( s) 658348-Dqs. B1, Whole Blood was developed and its performance characteristics determined by [facility]. It has not been cleared or approved by the Food and Drug Administration. MULTI VITAMIN Performed By: #### L 3100.5450, L3130.0010, L501.1400, L506.0250, L501.9520, L3300.8000 #### [facility] [address] [place], [place], [id number] Vitamin B1, Thiamineon 02-13 VIT B1 THIAMINE 147.9 nmol/L Normal 66.5-200.0 [facility] Comment on above: Order Comment: Test( s) 760698-Gwe. B1, Whole Bloodwas developed and its performance characteristicsdetermined by [facility]. It has not been cleared or approvedby the Food and Drug Administration.MULTI VITAMIN Result Comment: Perf ormed at: [address] [id number] Ware Carrier: Abdi Larson PhD, Phone: [phone] Performed at: [address] [id number] Ware Carrier: Stephanie Perez MD, Phone: [phone] Performed By: #### L 3100.5450, L3130.0010, L501.1400, L506.0250, L501.9520, L3300.8000 ####[facility] [id number] [place], [address] CODY w/ Reflex Mult Confirmon 02-10-2024 CODY,DIRECT Negative Normal Negative [facility] Comment on above: Order Comment: CODY W REFLEX COMP GOES TO DR. DRAKE Result Comment: Perf ormed at: [address] [id number] Ware Carrier: Abdi Larson PhD, Phone: [phone] Performed By: #### L 3100.5450, L3130.0010, L501.1400, L506.0250, L501.9520, L3300.8000 #### [facility] [address] [place], [place], [id number] Folates, (Folic Acid)on FOLATES 44.20 ng/mL Normal 3.1-55.4 [facility] Comment on above: Order Comment: MULTI VITAMIN Y Performed By: #### L 3100.5450, L3130.0010, L501.1400, L506.0250, L501.9520, L3300.8000 #### [facility] [address] [place], [place], [address] Neurology Visit Reporton Neurology Visit Report [facility] [address], [address] [place] [address] OFFICE VISIT Date of Service: 02/09/24 MR#: [id number] Acct: [id number] Name: FREDI AGUILAR Jr. Rep #: [id number] : 1960 Provider: Dr. Stanley ace MD Age/Sex: 63/M Location: [facility] Status: Signed Intake Vital Signs 02/02/23 14:57 02/09/24 07:50 Height 6 ft 6 ft Weight: 228 lb 13 oz BMI 31.0 BP 116/78 Blood Pressure Location Lt brachial Position Sitting Respiration 17 Pulse 71 Pulse Source Monitor Temp 98.6 F Temp Source Temporal Pulse Oximetry (%) 99 Oxygen Delivery Method room air Intake Visit Reasons: 1 Y FU Chief Complaint: Dairy Grazer Required: No Accompanied by: Self Allergies Penicillins Adverse Reaction (Severe, Verified 02/02/23 15:03) Rash [facility] Medical History (Updated 02/09/24 @ 08:[address] Stanley Gomez MD) Allergic rhinitis Gout GERD (gastroesophageal reflux disease) HTN (hypertension) Vertigo Surgical History History of right shoulder replacement Family History Mother , from [place] Anxiety Arthritis Autoimmune disorder Myocardial infarction, Onset Age: 74 Hypertension Osteoporosis Father , from [place] Myocardial infarction, Onset Age: 45 Heart disease Hypertension High cholesterol Social History Smoking Status: Never smoker Smokeless tobacco user: chewing tobacco Electronic Cigarette Use: not used second hand exposure: No alcohol intake: current alcohol intake frequency: 0-2 drinks per day Alcohol type: beer substance use type: does not use HPI HPI Chief Complaint: Details: Interim History: Fredi returns for follow-up. He has a history of hypertension and tachycardia. Since the , he has been experiencing periods of intermittent dizziness that he described as positional disequilibrium. Individual episodes may last up to 3 days each. He has had about 12 occurrences of this intermittent dizziness since the . He reported that on evaluation by an ENT specialist, left sided hearing loss was noted. He has left sided tinnitus. Over the years, he has been treated with meclizine for his dizziness and this has been of benefit. In November 2020, he experienced a recurrence of his positional disequilibrium, in addition to an episode of severe left-sided facial pain (primarily periorbital) that resolved within 5 minutes. He also had associated, transient left-sided facial numbness and tingling that resolved over hours. He also had associated transient nausea. He had a recurrence of his left-sided facial pain the following day, which lasted several minutes. He was hospitalized for possible cerebrovascular ischemia on the day his dizziness began in November 2020, and a head MRI at that time did not reveal any evidence of acute cerebrovascular ischemic event or other acute pathology. A small left subcortical chronic small vessel ischemic white matter lesion near the left posterior horn of the lateral ventricle was noted. A head and neck CTA were unremarkable. A lipid profile was unremarkable. A subsequent lipid profile was checked in 2021 revealed an elevated cholesterol. Atorvastatin was initiated and he has tolerated this well. He has been taking aspirin 81mg daily since around 2019. His last lipid profile earlier in 2023 was normal. He has not had symptoms suggestive of recurrent cerebrovascular ischemia since 2020. 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 He has not had recurrence of facial pain. He subsequently received a shingles vaccine. Over the years, he has had mild headaches without associated nausea that have occurred about once per year. He does not have any photophobia or phonophobia. He describes having a feeling of left ear fullness and attributes this to seasonal allergies. He occasionally has mild dizziness with his allergy symptoms. He reported that he saw his eye doctor in 2020 for fluctuating blurring of vision and the patient reported that his vision was felt to be stable and there was no acute ocular pathology. Loratadine was not of clear benefit for his allergies/sinus symptoms. He reports a history of gout affecting the feet. Also since September 2023, he has been experiencing persistent tingling in both feet. He denies having low back pain. In the past, he drank 3-4 cans of beer daily and had been consuming this amount since around 2016; he discontinued the use of alcohol in September 2023. His laboratory studies reveal a positive CODY. Physical Exam: Neuro: The patient is awake and (more content not included)... Normal [facility] Thyroid Stim Hormone (TSH)on 02-09-2024 TSH 1.04 uIU/mL Normal 0.358-3.74 [facility] Comment on above: Order Comment: MULTI VITAMIN Y Performed By: #### L 3100.5450, L3130.0010, L501.1400, L506.0250, L501.9520, L3300.8000 #### [facility] [address] [place], [address] Uric Acidon 02-09-2024 URIC 4.9 mg/dL Normal 3.5-7.2 [facility] Comment on above: Order Comment: MULTI VITAMIN Y Result Comment: The drugs N-Acetylcysteine and Metamizole may falsely depress this assay. Performed By: #### L 3100.5450, L3130.0010, L501.1400, L506.0250, L501.9520, L3300.8000 #### [facility] [address] [place], [address] Basophil percentageOrdered B y: Stanley Pelaeznoble on 11-24-2023 Bilirubin [Mass/Vol] 1.00 mg/dL 0.20-1.00 [facility] Comment on above: For patients on eltr ombopag therapy, use of Dimension [place] TBIL is not recommended. Cholesterol [Mass/Vol] 141 mg/dL <200 [facility] Comment on above: <200 mg/dL Desirable 200-240 mg/dL Borderline >240 mg/dL High Risk Protein [Mass/Vol] 7.4 g/dL 6.4-8.2 [facility] Triglyceride [Mass/Vol] 110 mg/dL <199 [facility] Comment on above: The drugs N-Acetylcy steine and Metamizole may falsely depress this assay.Serum Triglycerides Reference Interval Normal <150 mg/dL Borderline high 150 - 199 mg/dL High 200 - 499 mg/dL Very High > or = 500 mg/dL Direct bilirubinOrdered By: Stanley Gomez on 11-24-2023 Bilirubin.direct [Mass/Vol] 0.24 mg/dL 0.00-0.30 [facility] - Chemistry and C hemistry - challengeOrdered By: Stanley Gomez on 11-24-2023 ALP [Catalytic activity/Vol] 71 U/L 45-117 [facility] ALT [Catalytic activity/Vol] 45 U/L 16-61 [facility] Cholesterol in HDL [Mass/Vol] 56 mg/dL >40 [facility] Comment on above: The drugs N-Acetylcy steine and Metamizole may falsely depress this assay. Reference Range HDL <40 mg/dL Low HDL Cholesterol HDL >or= 60 mg/dL High HDL Cholesterol Cholesterol in LDL [Mass/Vol] 63 mg/dL 0-130 [facility] Globulin (S) [Mass/Vol] 3.3 g/dL 2.2-4.2 [facility] No Panel InformationOrdered By: Stanley Gomez on 11-24-2023 VLDL Cholesterol 22 mg/dL 5-40 [facility] Thin prep Papanicolaou smear with manual screeningOrdered By: Stanley Gomez on 11-24-2023 Thin prep Papanicolaou smear with manual screening 4.1 g/dL 3.2-5.0 [facility] Thin prep Papanicolaou smear with manual screening 26 U/L 15-37 [facility] Absolute lymphocyte countOrd ered By: Chapito Drake on 09-27-2023 Lymphocytes Auto (Unsp spec) [#/Vol] 1.12 10*3/uL 0.83-4.51 [facility] Automated lymphocyte count a s percentage of total leukocytesOrdered By: Chapito Drake on 09-27-2023 Lymphocytes/100 WBC Auto (Unsp spec) 18.3 % 19-41 [facility] Basophil percentageOrdered B y: Chapito Drake on 09-27-2023 Basophils/100 WBC (Bld) 0.8 % 0-1 [facility] Chloride [Moles/Vol] 105 mmol/L 98-107 [facility] Eosinophils/100 WBC (Bld) 2.0 % 0-5 [facility] Glucose [Mass/Vol] 103 mg/dL 74-106 [facility] Comment on above: Fasting Glucose resu lt from 100 to 125 mg/dL suggests IMPAIRED HOMEOSTASIS per A.D.A. criteria. Hemoglobin (Bld) [Mass/Vol] 14.8 g/dL 13.0-16.5 [facility] Monocytes/100 WBC (Bld) 8.3 % 0-10 [facility] Neutrophils (Bld) [#/Vol] 4.3 10*3/uL 2.0-7.7 [facility] Neutrophils/100 WBC (Bld) 70.1 % 47-70 [facility] Potassium [Moles/Vol] 3.9 mmol/L 3.5-5.1 [facility] Sodium [Moles/Vol] 137 mmol/L 136-145 [facility] WBC (Bld) [#/Vol] 6.1 10*3/uL 4.4-11.0 [facility] Determination of erythrocyte mean corpuscular volume (MCV)Ordered By: Chapito Drake on 09-27-2023 MCV (RBC) [Entitic vol] 88.5 fL 80-94 [facility] Erythrocyte distribution wid th ratioOrdered By: Chapito Drake on 09-27-2023 Erythrocyte distribution width (RBC) [Ratio] 12.7 % 11.6-14.6 [facility] Erythrocyte distribution wid th standard deviationOrdered By: Chapito Drake on 09-27-2023 Erythrocyte distribution width (RBC) [Entitic vol] 41.1 fL 35.1-43.9 [facility] Hematocrit Auto (Bld) [Volum e fraction]Ordered By: Chapito Drake on 09-27-2023 Hematocrit (Bld) [Volume fraction] 44.8 % 40-54 [facility] Immature granulocytes/100 WB C Auto (Bld)Ordered By: Chapito Drake on 09-27-2023 Immature granulocytes/100 WBC (Bld) 0.500 % 0.0-0.9 [facility] Comment on above: IG% - Immature Granu locytes (promyelocytes, myelocytes and metamyelocytes) > 1% indicates that a LEFT SHIFT is Present. Laboratory - Chemistry and C hemistry - challengeOrdered By: Chapito Drake on 09-27-2023 CO2 [Moles/Vol] 27.0 mmol/L 21.0-32.0 [facility] Urea nitrogen/Creatinine [Mass ratio] 16.6 mg/mg 10-20 [facility] - Hematology and Cell countsOrdered By: Chapito Drake on 09-27-2023 MCH (RBC) [Entitic mass] 29.2 pg 27.0-32.0 [facility] MCHC (RBC) [Mass/Vol] 33.0 g/dL 32-36 [facility] Nucleated RBC/100 WBC (Bld) [Ratio] 0 % 0-5 [facility] Platelets (Bld) [#/Vol] 225 10*3/uL 150-450 [facility] No Panel InformationOrdered By: Chapito Drake on 09-27-2023 Estimated GFR (MDRD) Amer 128 mL/min >60 [facility] Comment on above: GFR Calc Estimated GFR (MDRD) Non-Af Amer 106 mL/min >60 [facility] Comment on above: Non- GFR Calc Platelet mean volume Samir-Ec ker (Bld) [Entitic vol]Ordered By: Chapito Drake on 09-27-2023 Platelet mean volume (Bld) [Entitic vol] 9.5 fL 6.2-12.0 [facility] RBC Auto (Bld) [#/Vol]Ordere d By: Chapito Drake on 09-27-2023 RBC (Bld) [#/Vol] 5.06 10*6/uL 4.6-6.2 [facility] Serum or plasma calcium zheng urement (mass/volume)Ordered By: Chapito Drake on 09-27-2023 Calcium [Mass/Vol] 9.4 mg/dL 8.5-10.1 [facility] Serum or plasma creatinine m easurement (mass/volume)Ordered By: Chapito Drake on 09-27-2023 Creatinine [Mass/Vol] 0.78 mg/dL 0.70-1.30 [facility] Comment on above: The validity of the calculated GFR & GFRAA in patients over 70 years has not been determined. Clinical correlation is essential. Serum or plasma urea nitroge n measurement (mass/volume)Ordered By: Chapito Drake on 09-27-2023 Urea nitrogen [Mass/Vol] 13 mg/dL 7-18 [facility] Serum or plasma uric acid me asurement (mass/volume)Ordered By: Chapito Drake on 09-27-2023 Urate [Mass/Vol] 7.0 mg/dL 3.5-7.2 [facility] Comment on above: The drugs N-Acetylcy steine and Metamizole may falsely depress this assay. Thin prep Papanicolaou smear with manual screeningOrdered By: Chapito Drake on 09-27-2023 Thin prep Papanicolaou smear with manual screening 5 5-15 [facility] Basophil percentageon 2021 Cholesterol [Mass/Vol] 234 mg/dL <200 [facility] Work Phone: Comment on above: <200 mg/dL Desirable 200-240 mg/dL Borderline >240 mg/dL High Risk Triglyceride [Mass/Vol] 159 mg/dL <199 [facility] Work Phone: Comment on above: The drugs N-Acetylcy steine and Metamizole may falsely depress this assay.Serum Triglycerides Reference Interval Normal <150 mg/dL Borderline high 150 - 199 mg/dL High 200 - 499 mg/dL Very High > or = 500 mg/dL Serum or plasma cholesterol in HDL measurement (mass/volume)on 04-24-2022 Cholesterol in HDL [Mass/Vol] 74 mg/dL >40 [facility] Work Phone: Comment on above: The drugs N-Acetylcy steine and Metamizole may falsely depress this assay. Reference Range HDL <40 mg/dL Low HDL Cholesterol HDL >or= 60 mg/dL High HDL Cholesterol Serum or plasma cholesterol in VLDL measurement (mass/volume)on 04-24-2022 Cholesterol in VLDL [Mass/Vol] 32 mg/dL 5-40 [facility] Work Phone: Serum or plasma low density lipoprotein (LDL) cholesterol measurement (mass/volume)on 04-24-2022 Cholesterol in LDL [Mass/Vol] 128 mg/dL 0-130 [facility] Work Phone: CORONAVIRUS PCR [CCL]on COVID 19 Result [employer] Negative Normal [facility] Comment on above: Result Comment: Nega tive for COVID19 (SARS CoV2) by PCR. This test was developed and its performance characteristics determined by [facility]'s [facility] [place]. This test has been authorized by FDA under an Emergency Use Authorization (EUA). This test has been validated in accordance with the FDA's Guidance Document Policy for Diagnostics Testing in Laboratories Certified to Perform High Complexity Testing under CLIA prior to Emergency use Authorization for Coronavirus Disease 2019 during the Public Health Emergency issued on November 04, 2019. [id number] [place] [address] Dillon Lee III, M.D. [id number] Performed By: #### [id number] #### [facility],[address] [place] [id number] COVID 19 Source [employer]FT [employer] TECHNICIAN UN Normal [facility] Comment on above: Performed By: #### [id number] #### [facility],[address] [place] [id number] Vital Signs Date Time Vital Sign Value Performing Clinician Patel qureshi 02-07-2025 11:33-0400 Body height 182.9 cm Praveena Rowley Jr., DO Work Phone: [employer] [facility] 02-07-2025 11:33-0400 Diastolic blood pressure 70 mm[Hg] Praveena Rowley Jr., DO Work Phone: [employer] [facility] 02-07-2025 11:33-0400 Heart rate 61 /min Praveena Rowley Jr., DO Work Phone: [employer] [facility] 02-07-2025 11:33-0400 Respiratory rate 16 /min Praveena Rowley Jr., DO Work Phone: [employer] [facility] 02-07-2025 11:33-0400 SaO2% (BldA) [Mass fraction] 97 % Praveena Rowley Jr., DO Work Phone: [facility] 02-07-2025 11:33-0400 Systolic blood pressure 124 mm[Hg] Praveena Rowley Jr., DO Work Phone: [facility] 02-06-2025 08:00-0400 Body height 182.[address] Chapito Drake DO Work Phone: [facility] 02-06-2025 08:00-0400 Body mass index (BMI) [Ratio] 40.3 kg/m2 Dr. Chapito Drake DO Work Phone: [facility] 02-06-2025 08:00-0400 Body temperature 98.7 [degF] Dr. Chapito Drake DO Work Phone: [facility] 02-06-2025 08:00-0400 Body weight 134.[address] Chapito Drake DO Work Phone: [facility] 02-06-2025 08:00-0400 Diastolic blood pressure 78 mm[Hg] Dr. Chapito Drake DO Work Phone: [facility] 02-06-2025 08:00-0400 Heart rate 64 /min Dr. Chapito Drake DO Work Phone: [facility] 02-06-2025 08:00-0400 Respiratory rate 17 /min Dr. Chapito Drake DO Work Phone: [facility] 02-06-2025 08:00-0400 SaO2% (BldA) [Mass fraction] 95 % Dr. Chapito Drake DO Work Phone: [facility] 02-06-2025 08:00-0400 Systolic blood pressure 133 mm[Hg] Dr. Chapito Drake DO Work Phone: [facility] 02-02-2023 14:57-0400 Body height 182.[address] Chapito Drake Work Phone: [facility] 02-02-2023 14:57-0400 Body mass index (BMI) [Ratio] 31.8 kg/m2 Dr. Chapito Drake Work Phone: [facility] 02-02-2023 14:57-0400 Body temperature 98.2 [degF] Dr. Chapito Drake Work Phone: [facility] 02-02-2023 14:57-0400 Body weight 106.[address] Chapito Drake Work Phone: [facility] 02-02-2023 14:57-0400 Diastolic blood pressure 78 mm[Hg] Dr. Chapito Drake Work Phone: [facility] 02-02-2023 14:57-0400 Heart rate 101 /min Dr. Chapito Drake Work Phone: [facility] 02-02-2023 14:57-0400 Respiratory rate 17 /min Dr. Chapito Drake Work Phone: [facility] 02-02-2023 14:57-0400 SaO2% (BldA) [Mass fraction] 99 % Dr. Chapito Drake Work Phone: [facility] 02-02-2023 14:57-0400 Systolic blood pressure 132 mm[Hg] Dr. Chapito Drake Work Phone: [facility] 01-19-2022 08:02-0400 Body height 182.[address] Chapito Drake Work Phone: [facility] Work Phone: 01-19-2022 08:02-0400 Body mass index (BMI) [Ratio] 32.3 kg/m2 Dr. Chapito Drake Work Phone: [facility] Work Phone: 01-19-2022 08:02-0400 Body temperature 98.4 [degF] Dr. Chapito Drake Work Phone: [facility] Work Phone: 01-19-2022 08:02-0400 Body weight 108.[address] Chapito Drake Work Phone: [facility] Work Phone: 01-19-2022 08:02-0400 Diastolic blood pressure 84 mm[Hg] Dr. Chapito Drake Work Phone: [facility] Work Phone: 01-19-2022 08:02-0400 Heart rate 69 /min Dr. Chapito Drake Work Phone: [facility] Work Phone: 01-19-2022 08:02-0400 Respiratory rate 16 /min Dr. Chapito Drake Work Phone: [facility] Work Phone: 01-19-2022 08:02-0400 SaO2% (BldA) [Mass fraction] 99 % Dr. Chapito Drake Work Phone: [facility] Work Phone: 01-19-2022 08:02-0400 Systolic blood pressure 120 mm[Hg] Dr. Chapito Drake Work Phone: [facility] Work Phone: Encounters Encounter Date Encounter Type Care Provider Facility Start: 04-06-2025 ambulatory SELF SELF [facility] Start: 02-07-2025 End: 02-07-2025 Office outpatient new 60 minutes Praveena Rowley DO Work Phone: [facility] Comment on above: Cervicalgia (Primary Dx); Tendonitis of both rotator cuffs; Primary osteoarthritis of both hands; Primary osteoarthritis of both feet; Disorder of bone and articular cartilage; Chronic pain of both shoulders; On statin therapy; long-term (current) use of antibiotics; History of gout; Fatigue, unspecified type; Family history of systemic lupus erythematosus; Family history of rheumatoid arthritis; Primary hypertension; Dyslipidemia; Hip pain, right; Greater trochanteric bursitis of right hip Start: 02-07-2025 ambulatory CHAPITO DRAKE [facility] Start: 02-06-2025 End: 02-06-[address] Stanley Gomez MD -[facility] Work Phone: Start: 02-06-2025 End: 02-06-[address] Chapito Drake DO Work Phone: [facility] Work Phone: Start: 09-22-2024 End: 09-22-20[facility] Start: 08-14-2024 End: 08-14-2024 ambulatory [facility] Facility:[facility] Start: 03-08-2024 ambulatory [facility] Facilit y:[facility] Start: 03-08-2024 End: 03-08-2024 ambulatory [facility] Facility:[facility] Start: 02-09-2024 End: 02-09-2024 ambulatory Chapito Drake Facility:[facility] Start: 02-09-2024 End: 02-09-2024 ambulatory Chapito Drake Facility:[facility] Start: 11-24-2023 End: 11-24-2023 ambulatory [facility] Work Phone: Start: 11-24-2023 End: 11-24-2023 Patient encounter procedure [facility] Work Phone: Start: 09-27-2023 End: 09-27-2023 Patient encounter procedure [facility] Start: 04-22-2023 End: 04-22-[address] Chapito Drake Work Phone: [facility] Work Phone: Start: 04-22-2023 End: 04-22-[address] [facility]: Start: 04-06-2023 End: 04-06-[address] Chap[facility]: Start: 02-02-2023 End: 02-02-[address] Chapito Drake Work Phone: [facility] Work Phone: Start: 04-24-2022 End: 04-24-[address] Chapito Drake Work Phone: [facility] Work Phone: Start: 04-24-2022 End: 04-24-[address] Chapito Drake Work Phone: [facility] Start: 01-19-2022 End: 01-19-[address] Chapito Drake Work Phone: [facility] Start: 01-01-2021 [facility] Start: 06-06-2020 End: 06-06-2020 Patient encounter procedure RUSSELL Leal SARAH [facility] Plan of Treatment Date Care Activity Detail Author Start: 2035 RSV VACCINE (1 - 1-d ose 75+ series) RSV VACCINE (1 - 1-dose 75+ series) [facility] Start: 05-07-2025 Influenza vaccination INFLUENZ A VACCINE (Season Ended) [facility] Start: 04-06-2025 End: 04-06-2025 Patient encounter procedure 04/06/2025 2:30 PM EDT Office Visit [facility] [address] [place] [id number] Amrik Morgan, Praveena Leal, [address] [address] [facility] Start: 02-07-2025 End: 02-07-2026 CODY MULTIPLEX SCRN WITH REFLEX CODY MULTIPLEX SCRN WITH REFLEX Lab Routine Cervicalgia Tendonitis of both rotator cuffs Primary osteoarthritis of both hands Primary osteoarthritis of both feet Disorder of bone and articular cartilage Chronic pain of both shoulders On statin therapy ratings analyst (current) use of antibiotics History of gout Fatigue, unspecified type Family history of systemic lupus erythematosus Family history of rheumatoid arthritis Primary hypertension Dyslipidemia Hip pain, right Greater trochanteric bursitis of right hip Expected: 02/07/2025 (Approximate), Expires: 02/07/2026 [facility] Comment on above: Expected: 02/07/2025 (Approximate), Expires: 02/07/2026 Start: 02-07-2025 End: 02-07-2026 ANCA INIT SCRN (ANCA, PR3AB, MPO) ANCA INIT SCRN (ANCA, PR3AB, MPO) Lab Routine Cervicalgia Tendonitis of both rotator cuffs Primary osteoarthritis of both hands Primary osteoarthritis of both feet Disorder of bone and articular cartilage Chronic pain of both shoulders On statin therapy long-term (current) use of antibiotics History of gout Fatigue, unspecified type Family history of systemic lupus erythematosus Family history of rheumatoid arthritis Primary hypertension Dyslipidemia Hip pain, right Greater trochanteric bursitis of right hip Expected: 02/07/2025 (Approximate), Expires: 02/07/2026 [facility] Comment on above: Expected: 02/07/2025 (Approximate), Expires: 02/07/2026 Start: 02-07-2025 End: 02-07-2026 Angiotensin converting enzyme [Enzymatic activity/volume] in Serum or Plasma ANGIOTENSIN CONVERTING ENZYME Lab Routine Cervicalgia Tendonitis of both rotator cuffs Primary osteoarthritis of both hands Primary osteoarthritis of both feet Disorder of bone and articular cartilage Chronic pain of both shoulders On statin therapy ratings analyst (current) use of antibiotics History of gout Fatigue, unspecified type Family history of systemic lupus erythematosus Family history of rheumatoid arthritis Primary hypertension Dyslipidemia Hip pain, right Greater trochanteric bursitis of right hip Expected: 02/07/2025 (Approximate), Expires: 02/07/2026 [facility] Comment on above: Expected: 02/07/2025 (Approximate), Expires: 02/07/2026 Start: 02-07-2025 End: 02-07-2026 C-reactive protein C REACTIVE PROTEIN Lab Routine Cervicalgia Tendonitis of both rotator cuffs Primary osteoarthritis of both hands Primary osteoarthritis of both feet Disorder of bone and articular cartilage Chronic pain of both shoulders On statin therapy ratings analyst (current) use of antibiotics History of gout Fatigue, unspecified type Family history of systemic lupus erythematosus Family history of rheumatoid arthritis Primary hypertension Dyslipidemia Hip pain, right Greater trochanteric bursitis of right hip Expected: 02/07/2025 (Approximate), Expires: 02/07/2026 [facility] Comment on above: Expected: 02/07/2025 (Approximate), Expires: 02/07/2026 Start: 02-07-2025 End: 02-07-2026 CK CK Lab Routine Cervicalgia Tendonitis of both rotator cuffs Primary osteoarthritis of both hands Primary osteoarthritis of both feet Disorder of bone and articular cartilage Chronic pain of both shoulders On statin therapy ratings analyst (current) use of antibiotics History of gout Fatigue, unspecified type Family history of systemic lupus erythematosus Family history of rheumatoid arthritis Primary hypertension Dyslipidemia Hip pain, right Greater trochanteric bursitis of right hip Expected: 02/07/2025 (Approximate), Expires: 02/07/2026 [facility] Comment on above: Expected: 02/07/2025 (Approximate), Expires: 02/07/2026 Start: 02-07-2025 End: 02-07-2026 Complete blood count with white cell differential, automated CBC, EDIF, PLATELET Lab Routine Cervicalgia Tendonitis of both rotator cuffs Primary osteoarthritis of both hands Primary osteoarthritis of both feet Disorder of bone and articular cartilage Chronic pain of both shoulders On statin therapy long-term (current) use of antibiotics History of gout Fatigue, unspecified type Family history of systemic lupus erythematosus Family history of rheumatoid arthritis Primary hypertension Dyslipidemia Hip pain, right Greater trochanteric bursitis of right hip Expected: 02/07/2025 (Approximate), Expires: 02/07/2026 [facility] Comment on above: Expected: 02/07/2025 (Approximate), Expires: 02/07/2026 Start: 02-07-2025 End: 02-07-2026 Comprehensive metabolic 2000 panel - Serum or Plasma COMPREHENSIVE METABOLIC PANEL Lab Routine Cervicalgia Tendonitis of both rotator cuffs Primary osteoarthritis of both hands Primary osteoarthritis of both feet Disorder of bone and articular cartilage Chronic pain of both shoulders On statin therapy long-term (current) use of antibiotics History of gout Fatigue, unspecified type Family history of systemic lupus erythematosus Family history of rheumatoid arthritis Primary hypertension Dyslipidemia Hip pain, right Greater trochanteric bursitis of right hip Expected: 02/07/2025 (Approximate), Expires: 02/07/2026 [facility] [email or web address] [facility] Comment on above: Expected: 02/07/2025 (Approximate), Expires: 02/07/2026 Start: 02-07-2025 End: 02-07-2026 CRYOGLOBULIN CRYOGLOBULIN Lab Routine Cervicalgia Tendonitis of both rotator cuffs Primary osteoarthritis of both hands Primary osteoarthritis of both feet Disorder of bone and articular cartilage Chronic pain of both shoulders On statin therapy ratings analyst (current) use of antibiotics History of gout Fatigue, unspecified type Family history of systemic lupus erythematosus Family history of rheumatoid arthritis Primary hypertension Dyslipidemia Hip pain, right Greater trochanteric bursitis of right hip Expected: 02/07/2025 (Approximate), Expires: 02/07/2026 [facility] Comment on above: Expected: 02/07/2025 (Approximate), Expires: 02/07/2026 Start: 02-07-2025 End: 02-07-2026 CYCLIC CITRULLINATE PEPTIDE AB CYCLIC CITRULLINATE PEPTIDE AB Lab Routine Cervicalgia Tendonitis of both rotator cuffs Primary osteoarthritis of both hands Primary osteoarthritis of both feet Disorder of bone and articular cartilage Chronic pain of both shoulders On statin therapy ratings analyst (current) use of antibiotics History of gout Fatigue, unspecified type Family history of systemic lupus erythematosus Family history of rheumatoid arthritis Primary hypertension Dyslipidemia Hip pain, right Greater trochanteric bursitis of right hip Expected: 02/07/2025 (Approximate), Expires: 02/07/2026 [facility] [email or web address] [facility] Comment on above: Expected: 02/07/2025 (Approximate), Expires: 02/07/2026 Start: 02-07-2025 End: 02-07-2026 HEPATITIS A, B, C HEPATITIS A, B, C Lab Routine Cervicalgia Tendonitis of both rotator cuffs Primary osteoarthritis of both hands Primary osteoarthritis of both feet Disorder of bone and articular cartilage Chronic pain of both shoulders On statin therapy ratings analyst (current) use of antibiotics History of gout Fatigue, unspecified type Family history of systemic lupus erythematosus Family history of rheumatoid arthritis Primary hypertension Dyslipidemia Hip pain, right Greater trochanteric bursitis of right hip Expected: 02/07/2025 (Approximate), Expires: 02/07/2026 [facility] Comment on above: Expected: 02/07/2025 (Approximate), Expires: 02/07/2026 Start: 02-07-2025 End: 02-07-2026 CURTIS AND PE, SERUM CURTIS AND PE, SERUM Lab Routine Cervicalgia Tendonitis of both rotator cuffs Primary osteoarthritis of both hands Primary osteoarthritis of both feet Disorder of bone and articular cartilage Chronic pain of both shoulders On statin therapy long-term (current) use of antibiotics History of gout Fatigue, unspecified type Family history of systemic lupus erythematosus Family history of rheumatoid arthritis Primary hypertension Dyslipidemia Hip pain, right Greater trochanteric bursitis of right hip Expected: 02/07/2025 (Approximate), Expires: 02/07/2026 [employer] Comment on above: Expected: 02/07/2025 (Approximate), Expires: 02/07/2026 Start: 02-07-2025 End: 02-07-2026 LYME DISEASE SEROLOGY WITH REFLEX LYME DISEASE SEROLOGY WITH REFLEX Lab Routine Cervicalgia Tendonitis of both rotator cuffs Primary osteoarthritis of both hands Primary osteoarthritis of both feet Disorder of bone and articular cartilage Chronic pain of both shoulders On statin therapy ratings analyst (current) use of antibiotics History of gout Fatigue, unspecified type Family history of systemic lupus erythematosus Family history of rheumatoid arthritis Primary hypertension Dyslipidemia Hip pain, right Greater trochanteric bursitis of right hip Expected: 02/07/2025 (Approximate), Expires: 02/07/2026 [employer] Comment on above: Expected: 02/07/2025 (Approximate), Expires: 02/07/2026 Start: 02-07-2025 End: 02-07-2026 Magnesium [Mass/volume] in Serum or Plasma MAGNESIUM Lab Routine Cervicalgia Tendonitis of both rotator cuffs Primary osteoarthritis of both hands Primary osteoarthritis of both feet Disorder of bone and articular cartilage Chronic pain of both shoulders On statin therapy long-term (current) use of antibiotics History of gout Fatigue, unspecified type Family history of systemic lupus erythematosus Family history of rheumatoid arthritis Primary hypertension Dyslipidemia Hip pain, right Greater trochanteric bursitis of right hip Expected: 02/07/2025 (Approximate), Expires: 02/07/2026 [employer] Comment on above: Expected: 02/07/2025 (Approximate), Expires: 02/07/2026 Start: 02-07-2025 End: 02-07-2026 RHEUMATOID FACTOR RHEUMATOID FACTOR Lab Routine Cervicalgia Tendonitis of both rotator cuffs Primary osteoarthritis of both hands Primary osteoarthritis of both feet Disorder of bone and articular cartilage Chronic pain of both shoulders On statin therapy long-term (current) use of antibiotics History of gout Fatigue, unspecified type Family history of systemic lupus erythematosus Family history of rheumatoid arthritis Primary hypertension Dyslipidemia Hip pain, right Greater trochanteric bursitis of right hip Expected: 02/07/2025 (Approximate), Expires: 02/07/2026 [facility] Comment on above: Expected: 02/07/2025 (Approximate), Expires: 02/07/2026 Start: 02-07-2025 End: 02-07-2026 SEDIMENTATION RATE, AUTOMATED SEDIMENTATION RATE, AUTOMATED Lab Routine Cervicalgia Tendonitis of both rotator cuffs Primary osteoarthritis of both hands Primary osteoarthritis of both feet Disorder of bone and articular cartilage Chronic pain of both shoulders On statin therapy ratings analyst (current) use of antibiotics History of gout Fatigue, unspecified type Family history of systemic lupus erythematosus Family history of rheumatoid arthritis Primary hypertension Dyslipidemia Hip pain, right Greater trochanteric bursitis of right hip Expected: 02/07/2025 (Approximate), Expires: 02/07/2026 [facility] Comment on above: Expected: 02/07/2025 (Approximate), Expires: 02/07/2026 Start: 02-07-2025 End: 02-07-2026 T-TRANSGLUTAMINASE IGA AB T-TRANSGLUTAMINASE IGA AB Lab Routine Cervicalgia Tendonitis of both rotator cuffs Primary osteoarthritis of both hands Primary osteoarthritis of both feet Disorder of bone and articular cartilage Chronic pain of both shoulders On statin therapy ratings analyst (current) use of antibiotics History of gout Fatigue, unspecified type Family history of systemic lupus erythematosus Family history of rheumatoid arthritis Primary hypertension Dyslipidemia Hip pain, right Greater trochanteric bursitis of right hip Expected: 02/07/2025 (Approximate), Expires: 02/07/2026 [facility] Comment on above: Expected: 02/07/2025 (Approximate), Expires: 02/07/2026 Start: 02-07-2025 End: 02-07-2026 Testosterone [Mass/volume] in Serum or Plasma TESTOSTERONE Lab Routine Cervicalgia Tendonitis of both rotator cuffs Primary osteoarthritis of both hands Primary osteoarthritis of both feet Disorder of bone and articular cartilage Chronic pain of both shoulders On statin therapy ratings analyst (current) use of antibiotics History of gout Fatigue, unspecified type Family history of systemic lupus erythematosus Family history of rheumatoid arthritis Primary hypertension Dyslipidemia Hip pain, right Greater trochanteric bursitis of right hip Expected: 02/07/2025 (Approximate), Expires: 02/07/2026 [facility] Comment on above: Expected: 02/07/2025 (Approximate), Expires: 02/07/2026 Start: 02-07-2025 End: 02-07-2026 Thyrotropin [Units/volume] in Serum or Plasma TSH Lab Routine Cervicalgia Tendonitis of both rotator cuffs Primary osteoarthritis of both hands Primary osteoarthritis of both feet Disorder of bone and articular cartilage Chronic pain of both shoulders On statin therapy ratings analyst (current) use of antibiotics History of gout Fatigue, unspecified type Family history of systemic lupus erythematosus Family history of rheumatoid arthritis Primary hypertension Dyslipidemia Hip pain, right Greater trochanteric bursitis of right hip Expected: 02/07/2025 (Approximate), Expires: 02/07/2026 [facility] Comment on above: Expected: 02/07/2025 (Approximate), Expires: 02/07/2026 Start: 02-07-2025 End: 02-07-2026 Urate [Mass/volume] in Serum or Plasma URIC ACID Lab Routine Cervicalgia Tendonitis of both rotator cuffs Primary osteoarthritis of both hands Primary osteoarthritis of both feet Disorder of bone and articular cartilage Chronic pain of both shoulders On statin therapy long-term (current) use of antibiotics History of gout Fatigue, unspecified type Family history of systemic lupus erythematosus Family history of rheumatoid arthritis Primary hypertension Dyslipidemia Hip pain, right Greater trochanteric bursitis of right hip Expected: 02/07/2025 (Approximate), Expires: 02/07/2026 [facility] Comment on above: Expected: 02/07/2025 (Approximate), Expires: 02/07/2026 Start: 02-07-2025 End: 02-07-2026 Urinalysis dipstick W Reflex Microscopic panel - Urine URINE MICROSCOPIC Fluids Routine Cervicalgia Tendonitis of both rotator cuffs Primary osteoarthritis of both hands Primary osteoarthritis of both feet Disorder of bone and articular cartilage Chronic pain of both shoulders On statin therapy ratings analyst (current) use of antibiotics History of gout Fatigue, unspecified type Family history of systemic lupus erythematosus Family history of rheumatoid arthritis Primary hypertension Dyslipidemia Hip pain, right Greater trochanteric bursitis of right hip Expected: 02/07/2025 (Approximate), Expires: 02/07/2026 [facility] Comment on above: Expected: 02/07/2025 (Approximate), Expires: 02/07/2026 Start: 02-07-2025 End: 02-07-2026 Urinalysis, reagent strip without microscopy URINALYSIS, MACRO Fluids Routine Cervicalgia Tendonitis of both rotator cuffs Primary osteoarthritis of both hands Primary osteoarthritis of both feet Disorder of bone and articular cartilage Chronic pain of both shoulders On statin therapy long-term (current) use of antibiotics History of gout Fatigue, unspecified type Family history of systemic lupus erythematosus Family history of rheumatoid arthritis Primary hypertension Dyslipidemia Hip pain, right Greater trochanteric bursitis of right hip Expected: 02/07/2025 (Approximate), Expires: 02/07/2026 [facility] Comment on above: Expected: 02/07/2025 (Approximate), Expires: 02/07/2026 Start: 02-07-2025 End: 02-07-2026 VITAMIN D (25-HYDROXY,TOTAL) VITAMIN D (25-HYDROXY,TOTAL) Lab Routine Cervicalgia Tendonitis of both rotator cuffs Primary osteoarthritis of both hands Primary osteoarthritis of both feet Disorder of bone and articular cartilage Chronic pain of both shoulders On statin therapy ratings analyst (current) use of antibiotics History of gout Fatigue, unspecified type Family history of systemic lupus erythematosus Family history of rheumatoid arthritis Primary hypertension Dyslipidemia Hip pain, right Greater trochanteric bursitis of right hip Expected: 02/07/2025 (Approximate), Expires: 02/07/2026 [facility] Comment on above: Expected: 02/07/2025 (Approximate), Expires: 02/07/2026 Start: 02-07-2025 End: 02-07-2026 VITAMIN D, (1,25 DIHYDROXY) VITAMIN D, (1,25 DIHYDROXY) Lab Routine Cervicalgia Tendonitis of both rotator cuffs Primary osteoarthritis of both hands Primary osteoarthritis of both feet Disorder of bone and articular cartilage Chronic pain of both shoulders On statin therapy long-term (current) use of antibiotics History of gout Fatigue, unspecified type Family history of systemic lupus erythematosus Family history of rheumatoid arthritis Primary hypertension Dyslipidemia Hip pain, right Greater trochanteric bursitis of right hip Expected: 02/07/2025 (Approximate), Expires: 02/07/2026 [facility] Comment on above: Expected: 02/07/2025 (Approximate), Expires: 02/07/2026 Start: 02-07-2025 End: 02-07-2026 XR Cervical spine 4 Views XR SPINE CERVICAL 4-5 VIEWS Imaging Routine Cervicalgia Tendonitis of both rotator cuffs Primary osteoarthritis of both hands Primary osteoarthritis of both feet Disorder of bone and articular cartilage Chronic pain of both shoulders On statin therapy long-term (current) use of antibiotics History of gout Fatigue, unspecified type Family history of systemic lupus erythematosus Family history of rheumatoid arthritis Primary hypertension Dyslipidemia Hip pain, right Greater trochanteric bursitis of right hip Expected: 02/07/2025, Expires: 02/07/2026 [employer] Comment on above: Expected: 02/07/2025 , Expires: 02/07/2026 Start: 02-07-2025 End: 02-07-2026 XR Hip - right 2 Views XR HIP RIGHT 2-3 VIEWS Imaging Routine Cervicalgia Tendonitis of both rotator cuffs Primary osteoarthritis of both hands Primary osteoarthritis of both feet Disorder of bone and articular cartilage Chronic pain of both shoulders On statin therapy ratings analyst (current) use of antibiotics History of gout Fatigue, unspecified type Family history of systemic lupus erythematosus Family history of rheumatoid arthritis Primary hypertension Dyslipidemia Hip pain, right Greater trochanteric bursitis of right hip Expected: 02/07/2025, Expires: 02/07/2026 [facility] Comment on above: Expected: 02/07/2025 , Expires: 02/07/2026 Start: 02-07-2025 End: 02-07-2026 XR Sacroiliac Joint Views XR SACROILIAC JOINTS 3+ VIEWS Imaging Routine Cervicalgia Tendonitis of both rotator cuffs Primary osteoarthritis of both hands Primary osteoarthritis of both feet Disorder of bone and articular cartilage Chronic pain of both shoulders On statin therapy ratings analyst (current) use of antibiotics History of gout Fatigue, unspecified type Family history of systemic lupus erythematosus Family history of rheumatoid arthritis Primary hypertension Dyslipidemia Hip pain, right Greater trochanteric bursitis of right hip Expected: 02/07/2025, Expires: 02/07/2026 [facility] Comment on above: Expected: 02/07/2025 , Expires: 02/07/2026 Start: 02-07-2025 End: 02-07-2026 XR Shoulder - left 2 Views XR SHOULDER LEFT 2+ VIEWS Imaging Routine Cervicalgia Tendonitis of both rotator cuffs Primary osteoarthritis of both hands Primary osteoarthritis of both feet Disorder of bone and articular cartilage Chronic pain of both shoulders On statin therapy long-term (current) use of antibiotics History of gout Fatigue, unspecified type Family history of systemic lupus erythematosus Family history of rheumatoid arthritis Primary hypertension Dyslipidemia Hip pain, right Greater trochanteric bursitis of right hip Expected: 02/07/2025, Expires: 02/07/2026 [facility] Comment on above: Expected: 02/07/2025 , Expires: 02/07/2026 Start: 02-07-2025 End: 02-07-2026 XR Shoulder - right 2 Views XR SHOULDER RIGHT 2+ VIEWS Imaging Routine Cervicalgia Tendonitis of both rotator cuffs Primary osteoarthritis of both hands Primary osteoarthritis of both feet Disorder of bone and articular cartilage Chronic pain of both shoulders On statin therapy long-term (current) use of antibiotics History of gout Fatigue, unspecified type Family history of systemic lupus erythematosus Family history of rheumatoid arthritis Primary hypertension Dyslipidemia Hip pain, right Greater trochanteric bursitis of right hip Expected: 02/07/2025, Expires: 02/07/2026 [facility] Comment on above: Expected: 02/07/2025 , Expires: 02/07/2026 Start: 05-07-2024 COVID-19 VACCINE ( season) COVID-19 VACCINE ( season) [facility] Start: 08-24-2017 Zoster vaccine hzv l cassandra for subcutaneous use ZOSTER (SHINGLES) VACCINE (2 of 3) [facility] Start: 2015 Prostate specific antigen measurement PROSTATE CANCER SCREENING DISCUSSION [facility] Start: 2010 Pneumococcal vaccination PNEUMOCOCCAL VACCINE SERIES (1 of 1 - PCV) [facility] Start: 2005 Screening for malign ant neoplasm of colon COLORECTAL CANCER SCREENING DISCUSSION [facility] Start: 2000 Lipid panel LIPID SCREENING [facility] Start: 1979 Third diphtheria, tetanus and acellular pertussis (DTaP) vaccination TDAP (ADULT) [facility] Start: 1975 HIV screening HIV SCREENING DISCUSSI ON [facility] Start: 1960 Hepatitis C screening HEPATITI S C VIRUS SCREENING [facility] Start: 1960 Tetanus vaccination TETANUS [facility] Lipid 1996 panel - Serum or Plasma General acute hospital Immunizations Immunization Date Immunization Notes Care Provider Amber heindaily 07-03-2020 influenza virus vaccine, unspecified formulation Praveena Rowley Jr., DO Work Phone: [facility] 06-29-2017 zoster vaccine, unspecified formulation Praveena Rowley Jr., DO Work Phone: [facility] 11-09-2016 rabies vaccine, for intramuscular injection Dr. Chapito Drake Work Phone: [facility] 10-29-2016 rabies vaccine, for intramuscular injection Dr. Chapito Drake Work Phone: [facility] 10-26-[address] Anuj Drake Work Phone: [facility] 10-26-2016 rabies vaccine, for intramuscular injection Dr. Chapito Drake Work Phone: [facility] Payers Date Payer Category Payer Managed Care (unspecified) [facility] [id number] 2024 Self-pay [id number] 2023 Private Health Insurance [id number] 2012 Unknown [id number] 1960 Unknown [id number] 1960 Unknown [id number] [id number] 1960 Unknown [id number] [id number] 1960 Unknown [id number] [id number] Unknown [facility] PACKAGE PLAN [id number] Unknown [id number] Unknown [id number] [id number] Unknown [id number] [id number] Unknown [id number] [id number] Unknown [id number] [id number] Unknown [id number] [id number] Unknown [id number] [id number] Social History Date Type Detail Facility Start: 01-19-2022 End: 02-02-2023 Tobacco smoking status NHIS Unknown if ever smoked [facility] Start: 11-07-2020 [facility] Start: 1960 Sex Assigned At Male [facility] Start: 02-02-2023 End: 02-07-2025 Tobacco smoking status NHIS Never smoked tobacco (finding) [facility] Start: 02-07-2025 Tobacco use and exposure Smokeless tobacco non-user [facility] Start: 02-07-2025 History of Social function [facility] Start: 02-07-2025 Tobacco use panel [facility] Start: 1960 Sex assigned at Not on file [facility] Start: 11-06-2020 Sex Male (finding) [facility] History of Present illness Narrative 02-07-2025 Praveena Rowley JrRodo, DO - 02/07/2025 11:30 AM EDT Note Date & Type Note Facility 02-07-2025 History of Presen t illness Narrative Subjective History of Present Illness Presence of Pain: reports pain/discomfort Pain Location: shoulder, right, wrist, left, wrist, right Select Pain Scale: DVPRS (Defense and Veterans Pain Rating Scale) (Adult-Cognitively Intact) DVPRS: Rest: 1- mild pain DVPRS: Activity: 1- mild pain Select Pain Scale: DVPRS (Defense and Veterans Pain Rating Scale) (Adult-Cognitively Intact). Total time spent in this encounter was 65 minutes. Patient is being evaluated for an unstable chronic illness that increase morbidity and mortality. Due to patient's coexisting health problems and co-morbidities treatment is and will be very difficult. Patient referred by [facility] for Gout to bilateral feet. 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 Objective Review of Systems Constitutional: Positive for fatigue. HENT: Negative. Eyes: Negative. Respiratory: Negative. Cardiovascular: Negative. Gastrointestinal: Negative. Endocrine: Negative. Genitourinary: Negative. Musculoskeletal: Positive for arthralgias, neck pain and neck stiffness. Skin: Positive for rash. Rosacea Allergic/Immunologic: Negative. Neurological: Negative. Hematological: Negative. Psychiatric/Behavioral: The patient is nervous/anxious. Psych Review of Symptoms: Depressive Symptoms: Fatigue. Vitals: There were no vitals taken for this visit. Physical Exam Vitals and nursing note reviewed. Constitutional: Appearance: Normal appearance. HENT: Head: Normocephalic and atraumatic. Right Ear: External ear normal. Left Ear: External ear normal. Nose: Nose normal. Mouth/Throat: Mouth: Mucous membranes are moist. Pharynx: Oropharynx is clear. Comments: Rhinophyma Eyes: Extraocular Movements: Extraocular movements intact. Conjunctiva/sclera: Conjunctivae normal. Pupils: Pupils are equal, round, and reactive to light. Comments: glasses Cardiovascular: Rate and Rhythm: Normal rate and regular rhythm. Pulses: Carotid pulses are 2+ on the right side and 2+ on the left side. Radial pulses are 2+ on the right side and 2+ on the left side. Dorsalis pedis pulses are 2+ on the right side and 2+ on the left side. Posterior tibial pulses are 2+ on the right side and 2+ on the left side. Heart sounds: Normal heart sounds. Comments: No subclavian or carotid bruits. Pulmonary: Effort: Pulmonary effort is normal. Breath sounds: Normal breath sounds. Abdominal: General: Bowel sounds are normal. Palpations: Abdomen is soft. Comments: obese Musculoskeletal: Right shoulder: Tenderness and bony tenderness present. Decreased range of motion. Left shoulder: Tenderness and bony tenderness present. Decreased range of motion. Right upper arm: Tenderness present. Left upper arm: Tenderness present. Right elbow: Normal. Left elbow: Normal. Right forearm: Normal. Left forearm: Normal. Right wrist: Decreased range of motion. Left wrist: Decreased range of motion. Right hand: Normal. Left hand: Normal. Cervical back: Neck supple. Tenderness present. Decreased range of motion. Thoracic back: Normal. Lumbar back: Decreased range of motion. Right hip: Tenderness present. Decreased range of motion. Left hip: Decreased range of motion. Right upper leg: Tenderness present. Left upper leg: Normal. Right knee: Decreased range of motion. Left knee: Normal. Right lower leg: Normal. Left lower leg: Normal. Right ankle: Decreased range of motion. Left ankle: Decreased range of motion. Right foot: Decreased range of motion. Left foot: Decreased range of motion. Skin: General: Skin is warm and dry. Comments: buck Neurological: Mental Status: He is alert and oriented to person, place, and time. Cranial Nerves: Cranial nerves 2-12 are intact. Sensory: Sensation is intact. Motor: Motor function is intact. Gait: Gait is intact. Deep Tendon Reflexes: Reflex Scores: Tricep reflexes are 1+ on the right side and 1+ on the left side. Bicep reflexes are 1+ on the right side and 1+ on the left side. Brachioradialis reflexes are 1+ on the right side and 1+ on the left side. Patellar reflexes are 2+ on the right side and 2+ on the left side. Achilles reflexes are 2+ on the right side and 2+ on the left side. Psychiatric: Mood and Affect: Mood normal. Behavior: Behavior normal. Thought Content: Thought content normal. Judgment: Judgment normal. Neurological Exam Mental Status Alert. Oriented to person, place, and time. Cranial Nerves CN II: Vision test: glasses. CN III, IV, : Extraocular movements intact bilaterally. Pupils equal round and reactive to light bilaterally. Sensory Normal sensation. Reflexes Right Left Brachioradialis 1+ 1+ Biceps 1+ 1+ Triceps 1+ 1+ Patellar 2+ 2+ Achilles 2+ 2+ Gait Normal gait. Assessment and Plan Encounter Diagnoses Name Primary? 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 A complete H&P&ROS was obtained and is either in this note or in the EHR. Please do not hesitate to contact me with any questions or concerns re: this patient. Past History: Past medical, surgical, family, and social histories have been reviewed and updated with the patient today and are located elsewhere in the medical record. Thank you for allowing me to participate in the care of your patient. With your permission I would like to F/U with your patient. Differenetial Diagnosis includes but is not limited to Autoimmune Disease, Connective Tissue Disease, Collagen Vascular Disorder, Infection, and Neoplasm. Lab and x-ray and Follow-up with me in 3 weeks Patient given educational material on gout in the form of a pamphlet from the arthritis foundation. Patient should remain on Uloric life long. Would monitor CBC, LFT, Renal func, uric acid level every 6 - 12 months as long as patient on Uloric. Patient can take prednisone 5 mg 8 po q AM times one day decrease by one pill q day until off on a PRN basis any acute attack of gout. If neck pain continues rec: eval by spinal surgery and/or chronic pain management If shoulder and hip problems continue rec: ortho eval Patient given educational material on bursitis and tendonitis in the form of a pamphlet from the arthritis foundation. Patient told that PT would be the cornerstone of treatment Rx given for PT: patient declines Patient given educational material on OA in the from of a pamphlet from the arthritis foundation. Patient told that PT and keeping ideal body wt would be the cornerstone of treatment Rx given for Prednisone 5 mg 8 pills one day decrease by 1 pill a day until off to be used as needed Patient does not appear to need Colchicine and has been on Uloric for past year. 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 Hyperlipidemia chronic Sinus congestion chronic [facility] Work Phone: Evaluation note Note Date & Type Note Facility Evaluation note No assessment information availa ble [facility] Work Phone: Evaluation note Note Date & Type Note Facility Evaluation note Diagnosis Onset Date Resolution Polyneuropathy acute February 06, 2025 7:54am Cerebrovascular disease chronic J 2024 7:54am Hyperlipidemia chronic February 06, 2025 7:54am [place] [employer] [facility] Work Phone: Evaluation note Note Date & Type Note Facility Evaluation note Diagnosis Cervicalgia- Primary Tendonitis of both rotator cuffs Primary osteoarthritis of both hands Primary osteoarthritis of both feet Disorder of bone and articular cartilage Chronic pain of both shoulders Pain in joint, shoulder region On statin therapy long-term (current) use of antibiotics History of gout Personal history of other endocrine, metabolic, and immunity disorders Fatigue, unspecified type Family history of systemic lupus erythematosus Family history of skin conditions Family history of rheumatoid arthritis Family history of arthritis Primary hypertension Unspecified essential hypertension Dyslipidemia Other and unspecified hyperlipidemia Hip pain, right Pain in joint, pelvic region and thigh Greater trochanteric bursitis of right hip Enthesopathy of hip region documented in this encounter [facility] Reason for referral (narrative) Note Date & Type Note Facility Reason for referral (narrative) No reason for referral information available [place] [facility] Work Phone: Summary Purpose Family History Relationship Condition Age at Onset Recorded Date/T pradip mother Anxiety Unknown Arthritis Unknown Autoimmune disorder Unknown Myocardial infarction 74 Hypertension Unknown Osteoporosis Unknown father Myocardial infarction 45 Cardiac disease Unknown High blood cholesterol Unknown Advance Directives Advance Directive Response Recorded Date/ Time Living Will No November 07, 2020 2:03pm 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 No November 07 2:03pm Chief Complaint and Reason for Visit Chief Complaint 6 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 Reason for Visit Cerebrovascular dise ase Peripheral vestibulopathy Left-sided trigeminal neuralgia Chief Complaint 1 Y FU HYPERSOMNIA HYPERSOMNIA *REPEAT* Reason for Visit Cerebrovascular dise ase Hyperlipidemia Sinus congestion Chief Complaint EORDER Chief Complaint Admit Date 6 month follow up February 06, 2025 7:54a m Reason for Visit Admit Date Polyneuropathy February 06, 2025 7:54a m Cerebrovascular disease February 06, 2025 7 :54am Hyperlipidemia February 06, 2025 7:54a m Additional Source Comments (unrecognized sect ion and content) No Status Records FoundNo Status Records FoundNo Status Records FoundNo Status Records Found INFORMATION SOURCE (unrecogn ized section and content) DATE CREATED AUTHOR [facility]11/[facility] DATE CREATED AUTHOR AUTHOR'S ORGANIZ ATION 01/02/2021 [facility] DATE CREATED AUTHOR AUTHOR'S ORGANIZ ATION 02/06/2025 [facility] DATE CREATED AUTHOR AUTHOR'S ORGANIZ ATION 02/08/2025 [facility] Goals (unrecognized section and content) Goals may be documented in a n alternate sectionGoals may be documented in an alternate sectionGoals may be documented in an alternate sectionGoals may be documented in an alternate section Care Teams (unrecognized sec tion and content) Team Status: Active Member Role Status Dates Dr. Chapito Drake DO Family Provider Active Dr. Chapito Drake DO Primary Care Provider Active Team Status: Inactive Member Role Status Dates Dr. Chapito Drake DO Primary Care Provider, Referrin g Provider Active Dr. Stanley Gomez MD Attending Provider Active Team Status: Inactive Member Role Status Dates Dr. Chapito Drake DO Primary Care Prov ider, Attending Provider, Referring Provider Active Team Status: Inactive Member Role Status Dates Dr. Chapito Draek DO Primary Care Provider, Attendin g Provider Active Team Status: Inactive Member Role Status Dates Dr. Chapito Drake DO Primary Care Provider Active Dr. Stanley Gomez MD Attending Provider, Referring Provider Active Team Status: Inactive Member Role Status Dates Dr. Chapito Drake DO Primary Care Provider Active Start: February 06, 2025 End: February 06, 2025 Dr. Chapito Drake DO Referring Provider Active Start: February 06, 2025 End: February 06, 2025 Dr. Stanley Gomez MD Attending Provider Active Start: February 06, 2025 End: February 06, 2025 [facility] Relationship Specialty Start Date End Date Chapito Drake DO [address] [place] [address] [place] [id number] PCP - General Family Medicine 02/07/25 Reason for Visit (unrecogniz ed section and content) Reason Comments New Patient Patient referred by [facility] for Gout to bilateral feet. FOR RECORDS PERTAINING TO PATIENTS WHO ARE OR HAVE BEEN ENROLLED IN A CHEMICAL DEPENDENCY/SUBSTANCEABUSE PROGRAM, SOME INFORMATION MAY BE OMITTED. This clinical summary was aggregated from multiple sources. Caution should be exercised in using it in the provision of clinical care. This summary normalizes information from multiple sources, and as a consequence, information in this document may materially change the coding, format and clinical context of patient data. In addition, data may be omitted in some cases. CLINICAL DECISIONS SHOULD BE BASED ON THE PRIMARY CLINICAL RECORDS. [facility] [employer] [facility]. provides no warranty or guarantee of the accuracy or completeness of information in this document.
--- OUTSIDE RECORDS SUMMARY | 2025-03-21 07:31 | XMS RPT_ITS | CCD ---
Author Organization [facility] CliniSyaz Care Team Providers Care Hat Copyist Name Role Phone RUSSELL SMITH Admitting Unavailable SARAHRUSSELL MACHADO Attending Unavailable RUSSELL SMITH Primary Care Unavailable SEAN NGUYEN Referring Unavailable Dr. Chapito Drake Primary Care Provider Dr. Chapito Drake Referring Provider [phone] Francia STONE CARVER, TARA Valdez Attending Provider Dr. Chapito Drake Primary Care Provider Dr. Chapito Drake Referring Provider Dr. Stanley Gomez Attending Provider Dr. Chapito Drake DO Primary Care Provider [phone] Dr. Chapito Drake DO Referring Provider Dr. 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 , History of [...] 02-07-2025 Chronic Other aftercare (2 sources) Other retirement (current) drug therapy; Translations: [Other retirement (current) drug therapy] Onset: 02-07-2025 Episodic Other aftercare (2 sources) nursing home (current) use of antibiotics; Translations: [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] Onset: 02-07-2025 Episodic Other aftercare (2 sources) Drug therapy finding; Translations: [Other retirement (current) drug therapy] Onset: 02-07-2025 02-07-2025 Episodic Other aftercare (2 sources) Long-term current use of antibiotic; Translations: [nursing home (current) use of antibiotics] Onset: 02-07-2025 02-07-2025 Episodic Other aftercare (1 source) Long-term current use of systemic steroid; Translations: [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 Stanley ace MD Age/Sex: 64/M Location: [facility] [place].[facility] Status: Signed HPI [facility] Chief Complaint: Details: Interim History: Fredi returns [...] ischemic infarction. Normal visualized paranasal sinuses. 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 Normal [facility] Comprehensive Metabolic Prof ilon 09-22-2024 Albumin [Mass/Vol] 4.1 g/dL Normal 3.2-5.0 [facility] Comment on above: Performed By: #### L 500.4050, L500.4100 #### [facility] [address] [place], [address] Albumin/Globulin [Mass ratio] 1.3 {ratio} Normal 0.9-2.4 [facility] Comment on above: Performed By: #### L 500.4050, L500.4100 #### [facility] [address] [place], [address] ALK P 72 U/L Normal 45-117 [facility] Comment on above: Performed By: #### L 500.4050, L500.4100 #### [facility] [address] [place], [address] ALT [Catalytic activity/Vol] 48 U/L Normal 16-61 [facility] Comment on above: Performed By: #### L 500.4050, L500.4100 #### [facility] [address] [place], [address] AST [Catalytic activity/Vol] 28 U/L Normal 15-37 [facility] Comment on above: Performed By: #### L 500.4050, L500.4100 #### [facility] [address] [place], [address] Bilirubin [Mass/Vol] 1.60 mg/dL High 0.20-1.00 [facility] Comment on above: Result Comment: For patients on eltrombopag therapy, use of Dimension [place] TBIL is not recommended. Performed By: #### L 500.4050, L500.4100 #### [facility] [address] [place], [address] BUN/CRE 28.8 RATIO High 10-20 [facility] Comment on above: Performed By: #### L 500.4050, L500.4100 #### [facility] [address] [place], [address] CA,Total 9.3 mg/dL Normal 8.5-10.1 [facility] Comment on above: Performed By: #### L 500.4050, L500.4100 #### [facility] [address] [place], [address] Chloride [Moles/Vol] 107 mmol/L Normal 98-107 [facility] Comment on above: Performed By: #### L 500.4050, L500.4100 #### [facility] [address] [place], [address] CO2 [Moles/Vol] 25.0 mmol/L Normal 21.0-32.0 [facility] Comment on above: Performed By: #### L 500.4050, L500.4100 #### [facility] [address] [place], [address] Creatinine [Mass/Vol] 0.70 mg/dL Normal 0.70-1.30 [facility] Comment on above: Result Comment: The validity of the calculated GFR GFRAA in patients over 70 years has not been determined. Clinical correlation is essential. Performed By: #### L 500.4050, L500.4100 #### [facility] [address] [place], [address] EST GFR - AA 147 mL/min Normal >60 [facility] Comment on above: Result Comment: Afri can [place]i GFR Calc Performed By: #### L 500.4050, L500.4100 #### [facility] [address] [place], [address] GAP 7 Normal 5-15 [facility] Comment on above: Performed By: #### L 500.4050, L500.4100 #### [facility] [address] [place], [address] GFR/1.73 sq M.predicted among non-blacks MDRD (S/P/Bld) [Vol rate/Area] 122 mL/min/{1.73_m2} Normal >60 [facility] Comment on above: Result Comment: Non- GFR Calc Performed By: #### L 500.4050, L500.4100 #### [facility] [address] [place], [address] Globulin (S) [Mass/Vol] 3.2 g/dL Normal 2.2-4.2 [facility] Comment on above: Performed By: #### L 500.4050, L500.4100 #### [facility] [address] [place], [address] Glucose [Mass/Vol] 98 mg/dL Normal 74-106 [facility] Comment on above: Performed By: #### L 500.4050, L500.4100 #### [facility] [address] [place], [address] Potassium [Moles/Vol] 4.0 mmol/L Normal 3.5-5.1 [facility] Comment on above: Performed By: #### L 500.4050, L500.4100 #### [facility] [address] [place], [address] Sodium [Moles/Vol] 139 mmol/L Normal 136-145 [facility] Comment on above: Performed By: #### L 500.4050, L500.4100 #### [facility] [address] [place], [address] T PROT 7.3 g/dL Normal 6.4-8.2 [facility] Comment on above: Performed By: #### L 500.4050, L500.4100 #### [facility] [address] [place], [address] Urea nitrogen [Mass/Vol] 20 mg/dL High 7-18 [facility] Comment on above: Performed By: #### L 500.4050, L500.4100 #### [facility] [address] [place], [address] Lipid Profileon 09-22-2024 Cholesterol [Mass/Vol] 142 mg/dL Normal 200 [facility] Comment on above: Result Comment: <200 mg/dL Desirable 200-240 mg/dL Borderline >240 mg/dL High Risk Performed By: #### L 500.4050, L500.4100 #### [facility] [address] [place], [address] Cholesterol in HDL [Mass/Vol] 64 mg/dL Normal [facility] Comment on above: Result Comment: The drugs N-Acetylcysteine and Metamizole may falsely depress this assay. Reference Range HDL <40 mg/dL Low HDL Cholesterol HDL >or= 60 mg/dL High HDL Cholesterol Performed By: #### L 500.4050, L500.4100 #### [facility] [address] [place], [address] Cholesterol in LDL [Mass/Vol] 62 mg/dL Normal 0-130 [facility] Comment on above: Performed By: #### L 500.4050, L500.4100 #### [facility] [address] [place], [address] Cholesterol in VLDL [Mass/Vol] 16 mg/dL Normal 5-40 [facility] Comment on above: Performed By: #### L 500.4050, L500.4100 #### [facility] [address] [place], [address] Triglyceride [Mass/Vol] 79 mg/dL Normal [facility] Comment on above: Result Comment: The drugs N-Acetylcysteine and Metamizole may falsely depress this assay. Serum Triglycerides Reference Interval Normal <150 mg/dL Borderline high 150 - 199 mg/dL High 200 - 499 mg/dL Very High > or = 500 mg/dL Performed By: #### L 500.4050, L500.4100 #### [facility] [address] [place], [address] Neurology Visit Reporton Neurology Visit Report [facility] [address] [place] [address], [address] [place] [address] OFFICE VISIT Date of Service: 08/14/24 MR#: [id number] Acct: [id number] Name: FREDI AGUILAR Jr. Rep #: [id number] : 1960 Provider: Dr. Stanley ace MD Age/Sex: 63/M Location: [facility] Status: Signed with Addenda ADDENDUM by [...] Normal visualize (more content not included)... Normal [facility] NCS and/or EMG Patienton NCS and/or EMG Patient [facility] Pulmonary Services/Neurology [address] [place] [address] MR#: [id number] Acct: [id number] Name: FREDI AGUILAR Jr. Rep #: [id number] : 1960 63 From: Solo Card MD Referring Dr: Stanley Gomez MD Status: REG CL I Location: [facility] Date: 03/08/24 Sex: M C NCS and/or [...] Multi Select Codes Neurology Neurology Interp Codes: 22728-85 Musc test done w/n test comp (interp) (2) and 06993-38 Nrv cndj test 11-12 studies (interp) 03/08/24 1239 Date Solo Card MD CC: Dr. Solo Card MD; Dr. Chapito Drake DO; Dr. Stanley Gomez MD Date Dictated: 03/08/24 1236 Date Transcribed: 03/08/241235 Energy Auditor: AA Signed Normal [facility] [place] Lambda Light Chainson 02-14-2024 FR KAPPA LT CHN 10.8 mg/L Normal 3.3-19.4 [facility] Comment on above: Order Comment: Test( s) 396056-Npk. B1, Whole Blood was developed and its performance characteristics determined by [facility]. It has not been cleared or approved by the Food and Drug Administration. MULTI VITAMIN Performed By: #### L 3100.5450, L3130.0010, L501.1400, L506.0250, L501.9520, L3300.8000 #### [facility] [address] [place], [address] FR LAMBDA LT CH 9.5 mg/L Normal 5.7-26.3 [facility] Comment on above: Order Comment: Test( s) 013776-Tcd. B1, Whole Blood was developed and its performance characteristics determined by [facility]. It has not been cleared or approved by the Food and Drug Administration. MULTI VITAMIN Performed By: #### L 3100.5450, L3130.0010, L501.1400, L506.0250, L501.9520, L3300.8000 #### [facility] [address] [place], [address] KAPPA/LAMBDA % 1.14 Normal 0.26-1.65 [facility] Comment on above: Order Comment: Test( s) 900834-Uyw. B1, Whole Blood was developed and its performance characteristics determined by [facility]. It has not been cleared or approved by the Food and Drug Administration. MULTI VITAMIN Performed By: #### L 3100.5450, L3130.0010, L501.1400, L506.0250, L501.9520, L3300.8000 #### [facility] [address] [place], [place], [id number] Vitamin B1, Thiamineon 02-13 VIT B1 THIAMINE 147.9 nmol/L Normal 66.5-200.0 [facility] Comment on above: Order Comment: Test( s) 585002-Ocy. B1, Whole Bloodwas developed and its performance characteristicsdetermined by [facility]. It has not been cleared or approvedby the Food and Drug Administration.MULTI VITAMIN Result Comment: Perf ormed at: [address] [id number] Ruling Technician: Abdi Larson PhD, Phone: [phone] Performed at: [address] [id number] Ruling Technician: Stephanie Perez MD, Phone: [phone] Performed By: #### L 3100.5450, L3130.0010, L501.1400, L506.0250, L501.9520, L3300.8000 ####[facility] [id number] [place], [address] CODY w/ Reflex Mult Confirmon 02-10-2024 CODY,DIRECT Negative Normal Negative [facility] Comment on above: Order Comment: CODY W REFLEX COMP GOES TO DR. DRAKE Result Comment: Perf ormed at: [address] [id number] Ruling Technician: Abdi Larson PhD, Phone: [phone] Performed By: #### L 3100.5450, L3130.0010, L501.1400, L506.0250, L501.9520, L3300.8000 #### [facility] [address] [place], [place], [address] Folates, (Folic Acid)on FOLATES 44.20 ng/mL Normal 3.1-55.4 [facility] Comment on above: Order Comment: MULTI VITAMIN Y Performed By: #### L 3100.5450, L3130.0010, L501.1400, L506.0250, L501.9520, L3300.8000 #### [facility] [address] [place], [place], [address] Neurology Visit Reporton Neurology Visit Report [facility] [address], [address] [place] [address] OFFICE VISIT Date of Service: 02/09/24 MR#: [id number] Acct: [id number] Name: FREDI AGUILAR Jr. Rep #: [id number] : 1960 Provider: Dr. Stanley ace MD Age/Sex: 63/M Location: [facility] Status: Signed Intake Vital Signs 02/02/23 14:57 02/09/24 07:50 Height 6 ft 6 ft Weight: 228 lb 13 oz BMI 31.0 BP 116/78 Blood Pressure Location Lt brachial Position Sitting Respiration 17 Pulse 71 Pulse Source Monitor Temp 98.6 F Temp Source Temporal Pulse Oximetry (%) 99 Oxygen Delivery Method room air Intake Visit Reasons: 1 Y FU Chief Complaint: [place] Inspector Required: No Accompanied by: Self Allergies Penicillins Adverse Reaction (Severe, Verified 02/02/23 15:03) Rash [facility] Medical History (Updated 02/09/24 @ 08:[address] Stanley Gomez MD) Allergic rhinitis Gout GERD (gastroesophageal reflux disease) HTN (hypertension) Vertigo Surgical History History of right shoulder replacement Family History Mother , from [place] Anxiety Arthritis Autoimmune disorder Myocardial infarction, Onset Age: 74 Hypertension Osteoporosis Father , from [place] Myocardial infarction, Onset Age: 45 Heart disease [...] awake and (more content not included)... Normal [facility] Thyroid Stim Hormone (TSH)on 02-09-2024 TSH 1.04 uIU/mL Normal 0.358-3.74 [facility] Comment on above: Order Comment: MULTI VITAMIN Y Performed By: #### L 3100.5450, L3130.0010, L501.1400, L506.0250, L501.9520, L3300.8000 #### [facility] [address] [place], [address] Uric Acidon 02-09-2024 URIC 4.9 mg/dL Normal 3.5-7.2 [facility] Comment on above: Order Comment: MULTI VITAMIN Y Result Comment: The drugs N-Acetylcysteine and Metamizole may falsely depress this assay. Performed By: #### L 3100.5450, L3130.0010, L501.1400, L506.0250, L501.9520, L3300.8000 #### [facility] [address] [place], [address] Basophil percentageOrdered B y: Stanley Pelaeznoble on 11-24-2023 Bilirubin [Mass/Vol] 1.00 mg/dL 0.20-1.00 [facility] Comment on above: For patients on eltr ombopag therapy, use of Dimension [place] TBIL is not recommended. Cholesterol [Mass/Vol] 141 mg/dL <200 [facility] Comment on above: <200 mg/dL Desirable 200-240 mg/dL Borderline >240 mg/dL High Risk Protein [Mass/Vol] 7.4 g/dL 6.4-8.2 [facility] Triglyceride [Mass/Vol] 110 mg/dL <199 [facility] Comment on above: The drugs N-Acetylcy steine and Metamizole may falsely depress this assay.Serum Triglycerides Reference Interval Normal <150 mg/dL Borderline high 150 - 199 mg/dL High 200 - 499 mg/dL Very High > or = 500 mg/dL Direct bilirubinOrdered By: Stanley Gomez on 11-24-2023 Bilirubin.direct [Mass/Vol] 0.24 mg/dL 0.00-0.30 [facility] Laboratory - Chemistry and C hemistry - challengeOrdered By: Stanley Gomez on 11-24-2023 ALP [Catalytic activity/Vol] 71 U/L 45-117 [facility] ALT [Catalytic activity/Vol] 45 U/L 16-61 [facility] Cholesterol in HDL [Mass/Vol] 56 mg/dL >40 [facility] Comment on above: The drugs N-Acetylcy steine and Metamizole may falsely depress this assay. Reference Range HDL <40 mg/dL Low HDL Cholesterol HDL >or= 60 mg/dL High HDL Cholesterol Cholesterol in LDL [Mass/Vol] 63 mg/dL 0-130 [facility] Globulin (S) [Mass/Vol] 3.3 g/dL 2.2-4.2 [facility] No Panel InformationOrdered By: Stanley Gomez on 11-24-2023 VLDL Cholesterol 22 mg/dL 5-40 [facility] Thin prep Papanicolaou smear with manual screeningOrdered By: Stanley Gomez on 11-24-2023 Thin prep Papanicolaou smear with manual screening 4.1 g/dL 3.2-5.0 [facility] Thin prep Papanicolaou smear with manual screening 26 U/L 15-37 [facility] Absolute lymphocyte countOrd ered By: Chapito Drake on 09-27-2023 Lymphocytes Auto (Unsp spec) [#/Vol] 1.12 10*3/uL 0.83-4.51 [facility] Automated lymphocyte count a s percentage of total leukocytesOrdered By: Chapito Drake on 09-27-2023 Lymphocytes/100 WBC Auto (Unsp spec) 18.3 % 19-41 [facility] Basophil percentageOrdered B y: Chapito Drake on 09-27-2023 Basophils/100 WBC (Bld) 0.8 % 0-1 [facility] Chloride [Moles/Vol] 105 mmol/L 98-107 [facility] Eosinophils/100 WBC (Bld) 2.0 % 0-5 [facility] Glucose [Mass/Vol] 103 mg/dL 74-106 [facility] Comment on above: Fasting Glucose resu lt from 100 to 125 mg/dL suggests IMPAIRED HOMEOSTASIS per A.D.A. criteria. Hemoglobin (Bld) [Mass/Vol] 14.8 g/dL 13.0-16.5 [facility] Monocytes/100 WBC (Bld) 8.3 % 0-10 [facility] Neutrophils (Bld) [#/Vol] 4.3 10*3/uL 2.0-7.7 [facility] Neutrophils/100 WBC (Bld) 70.1 % 47-70 [facility] Potassium [Moles/Vol] 3.9 mmol/L 3.5-5.1 [facility] Sodium [Moles/Vol] 137 mmol/L 136-145 [facility] WBC (Bld) [#/Vol] 6.1 10*3/uL 4.4-11.0 [facility] Determination of erythrocyte mean corpuscular volume (MCV)Ordered By: Chapito Drake on 09-27-2023 MCV (RBC) [Entitic vol] 88.5 fL 80-94 [facility] Erythrocyte distribution wid th ratioOrdered By: Chapito Drake on 09-27-2023 Erythrocyte distribution width (RBC) [Ratio] 12.7 % 11.6-14.6 [facility] Erythrocyte distribution wid th standard deviationOrdered By: Chapito Drake on 09-27-2023 Erythrocyte distribution width (RBC) [Entitic vol] 41.1 fL 35.1-43.9 [facility] Hematocrit Auto (Bld) [Volum e fraction]Ordered By: Chapito Drake on 09-27-2023 Hematocrit (Bld) [Volume fraction] 44.8 % 40-54 [facility] Immature granulocytes/100 WB C Auto (Bld)Ordered By: Chapito Drake on 09-27-2023 Immature granulocytes/100 WBC (Bld) 0.500 % 0.0-0.9 [facility] Comment on above: IG% - Immature Granu locytes (promyelocytes, myelocytes and metamyelocytes) > 1% indicates that a LEFT SHIFT is Present. Laboratory - Chemistry and C hemistry - challengeOrdered By: Chapito Drake on 09-27-2023 CO2 [Moles/Vol] 27.0 mmol/L 21.0-32.0 [facility] Urea nitrogen/Creatinine [Mass ratio] 16.6 mg/mg 10-20 [facility] Laboratory - Hematology and Cell countsOrdered By: Chapito Drake on 09-27-2023 MCH (RBC) [Entitic mass] 29.2 pg 27.0-32.0 [facility] MCHC (RBC) [Mass/Vol] 33.0 g/dL 32-36 [facility] Nucleated RBC/100 WBC (Bld) [Ratio] 0 % 0-5 [facility] Platelets (Bld) [#/Vol] 225 10*3/uL 150-450 [facility] No Panel InformationOrdered By: Chapito Drake on 09-27-2023 Estimated GFR (MDRD) Amer 128 mL/min >60 [facility] Comment on above: GFR Calc Estimated GFR (MDRD) Non-Af Amer 106 mL/min >60 [facility] Comment on above: Non- GFR Calc Platelet mean volume Samir-Ec ker (Bld) [Entitic vol]Ordered By: Chapito Drake on 09-27-2023 Platelet mean volume (Bld) [Entitic vol] 9.5 fL 6.2-12.0 [facility] RBC Auto (Bld) [#/Vol]Ordere d By: Chapito Drake on 09-27-2023 RBC (Bld) [#/Vol] 5.06 10*6/uL 4.6-6.2 [facility] Serum or plasma calcium zheng urement (mass/volume)Ordered By: Chapito Drake on 09-27-2023 Calcium [Mass/Vol] 9.4 mg/dL 8.5-10.1 [facility] Serum or plasma creatinine m easurement (mass/volume)Ordered By: Chapito Drake on 09-27-2023 Creatinine [Mass/Vol] 0.78 mg/dL 0.70-1.30 [facility] Comment on above: The validity of the calculated GFR & GFRAA in patients over 70 years has not been determined. Clinical correlation is essential. Serum or plasma urea nitroge n measurement (mass/volume)Ordered By: Chapito Drake on 09-27-2023 Urea nitrogen [Mass/Vol] 13 mg/dL 7-18 [facility] Serum or plasma uric acid me asurement (mass/volume)Ordered By: Chapito Drake on 09-27-2023 Urate [Mass/Vol] 7.0 mg/dL 3.5-7.2 [facility] Comment on above: The drugs N-Acetylcy steine and Metamizole may falsely depress this assay. Thin prep Papanicolaou smear with manual screeningOrdered By: Chapito Drake on 09-27-2023 Thin prep Papanicolaou smear with manual screening 5 5-15 [facility] Basophil percentageon 2021 Cholesterol [Mass/Vol] 234 mg/dL <200 [facility] Work Phone: Comment on above: <200 mg/dL Desirable 200-240 mg/dL Borderline >240 mg/dL High Risk Triglyceride [Mass/Vol] 159 mg/dL <199 [facility] Work Phone: Comment on above: The drugs N-Acetylcy steine and Metamizole may falsely depress this assay.Serum Triglycerides Reference Interval Normal <150 mg/dL Borderline high 150 - 199 mg/dL High 200 - 499 mg/dL Very High > or = 500 mg/dL Serum or plasma cholesterol in HDL measurement (mass/volume)on 04-24-2022 Cholesterol in HDL [Mass/Vol] 74 mg/dL >40 [facility] Work Phone: Comment on above: The drugs N-Acetylcy steine and Metamizole may falsely depress this assay. Reference Range HDL <40 mg/dL Low HDL Cholesterol HDL >or= 60 mg/dL High HDL Cholesterol Serum or plasma cholesterol in VLDL measurement (mass/volume)on 04-24-2022 Cholesterol in VLDL [Mass/Vol] 32 mg/dL 5-40 [facility] Work Phone: Serum or plasma low density lipoprotein (LDL) cholesterol measurement (mass/volume)on 04-24-2022 Cholesterol in LDL [Mass/Vol] 128 mg/dL 0-130 [facility] Work Phone: CORONAVIRUS PCR [CCL]on COVID 19 Result STONE CARVER Negative Normal [facility] Comment on above: Result Comment: Nega tive for COVID19 (SARS CoV2) by PCR. This test was developed and its performance characteristics determined by [facility] [facility] [place]. This test has been authorized by FDA under an Emergency Use Authorization (EUA). This test has been validated in accordance with the FDA's Guidance Document Policy for Diagnostics Testing in Laboratories Certified to Perform High Complexity Testing under CLIA prior to Emergency use Authorization for Coronavirus Disease 2019 during the Public Health Emergency issued on November 04, 2019. [id number] [place] [address] Dillon Lee III, M.D. [id number] Performed By: #### [id number] #### [facility],[address] [place] [id number] COVID 19 Source [employer] [employer] [facility] Normal [facility] Comment on above: Performed By: #### [id number] #### [facility],[address] [place] [id number] Vital Signs Date Time Vital Sign Value Performing Clinician Patel qureshi 02-07-2025 11:33-0400 Body height 182.9 cm Praveena Rowley Jr., DO Work Phone: [facility] 02-07-2025 11:33-0400 Diastolic blood pressure 70 mm[Hg] Praveena Rowley Jr., DO Work Phone: [employer] [facility] 02-07-2025 11:33-0400 Heart rate 61 /min Praveena Rowley Jr., DO Work Phone: [employer] [facility] 02-07-2025 11:33-0400 Respiratory rate 16 /min Praveena Rowley Jr., DO Work Phone: [employer] [facility] 02-07-2025 11:33-0400 SaO2% (BldA) [Mass fraction] 97 % Praveena Rowley Jr., DO Work Phone: [facility] 02-07-2025 11:33-0400 Systolic blood pressure 124 mm[Hg] Praveena Rowley Jr., DO Work Phone: [facility] 02-06-2025 08:00-0400 Body height 182.[address] Chapito Drake DO Work Phone: [facility] 02-06-2025 08:00-0400 Body mass index (BMI) [Ratio] 40.3 kg/m2 Dr. Chapito Drake DO Work Phone: [facility] 02-06-2025 08:00-0400 Body temperature 98.7 [degF] Dr. Chapito Drake DO Work Phone: [facility] 02-06-2025 08:00-0400 Body weight 134.[address] Chapito Drake DO Work Phone: [facility] 02-06-2025 08:00-0400 Diastolic blood pressure 78 mm[Hg] Dr. Chapito Drake DO Work Phone: [facility] 02-06-2025 08:00-0400 Heart rate 64 /min Dr. Chapito Drake DO Work Phone: [facility] 02-06-2025 08:00-0400 Respiratory rate 17 /min Dr. Chapito Drake DO Work Phone: [facility] 02-06-2025 08:00-0400 SaO2% (BldA) [Mass fraction] 95 % Dr. Chapito Drake DO Work Phone: [facility] 02-06-2025 08:00-0400 Systolic blood pressure 133 mm[Hg] Dr. Chapito Drake DO Work Phone: [facility] 02-02-2023 14:57-0400 Body height 182.[address] Chapito Drake Work Phone: [facility] 02-02-2023 14:57-0400 Body mass index (BMI) [Ratio] 31.8 kg/m2 Dr. Chapito Drake Work Phone: [facility] 02-02-2023 14:57-0400 Body temperature 98.2 [degF] Dr. Chapito Drake Work Phone: [facility] 02-02-2023 14:57-0400 Body weight 106.[address] Chapito Drake Work Phone: [facility] 02-02-2023 14:57-0400 Diastolic blood pressure 78 mm[Hg] Dr. Chapito Drake Work Phone: [facility] 02-02-2023 14:57-0400 Heart rate 101 /min Dr. Chapito Drake Work Phone: [facility] 02-02-2023 14:57-0400 Respiratory rate 17 /min Dr. Chapito Drake Work Phone: [facility] 02-02-2023 14:57-0400 SaO2% (BldA) [Mass fraction] 99 % Dr. Chapito Drake Work Phone: [facility] 02-02-2023 14:57-0400 Systolic blood pressure 132 mm[Hg] Dr. Chapito Drake Work Phone: [facility] 01-19-2022 08:02-0400 Body height 182.[address] Chapito Drake Work Phone: [facility] Work Phone: 01-19-2022 08:02-0400 Body mass index (BMI) [Ratio] 32.3 kg/m2 Dr. Chapito Drake Work Phone: [facility] Work Phone: 01-19-2022 08:02-0400 Body temperature 98.4 [degF] Dr. Chapito Darke Work Phone: [facility] Work Phone: 01-19-2022 08:02-0400 Body weight 108.[address] Chapito Drake Work Phone: [facility] Work Phone: 01-19-2022 08:02-0400 Diastolic blood pressure 84 mm[Hg] Dr. Chapito Drake Work Phone: [facility] Work Phone: 01-19-2022 08:02-0400 Heart rate 69 /min Dr. Chapito Drake Work Phone: [facility] Work Phone: 01-19-2022 08:02-0400 Respiratory rate 16 /min Dr. Chapito Drake Work Phone: [facility] Work Phone: 01-19-2022 08:02-0400 SaO2% (BldA) [Mass fraction] 99 % Dr. Chapito Drake Work Phone: [facility] Work Phone: 01-19-2022 08:02-0400 Systolic blood pressure 120 mm[Hg] Dr. Chapito Drake Work Phone: [facility] Work Phone: Encounters Encounter Date Encounter Type Care Provider Facility Start: 04-06-2025 ambulatory SELF SELF [facility] Start: 02-07-2025 End: 02-07-2025 Office outpatient new 60 minutes Praveena Rowley DO Work Phone: [facility] Comment on above: Cervicalgia (Primary Dx); Tendonitis of both rotator cuffs; Primary osteoarthritis of both hands; Primary osteoarthritis of both feet; Disorder of bone and articular cartilage; Chronic pain of both shoulders; On statin therapy; nursing home (current) use of antibiotics; History of gout; Fatigue, unspecified type; Family history of systemic lupus erythematosus; Family history of rheumatoid arthritis; Primary hypertension; Dyslipidemia; Hip pain, right; Greater trochanteric bursitis of right hip Start: 02-07-2025 ambulatory CHAPITO DRAKE [facility] Start: 02-06-2025 End: 02-06-[address] Stanley Gomez MD -[facility] Work Phone: Start: 02-06-2025 End: 02-06-[address] Chapito Drake DO Work Phone: [facility] Work Phone: Start: 09-22-2024 End: 09-22-2024 [facility] Start: 08-14-2024 End: 08-14-2024 ambulatory [facility] Facility:[facility] Start: 03-08-2024 ambulatory [facility] Facilit y:[facility] Start: 03-08-2024 End: 03-08-2024 ambulatory [facility] Facility:[facility] Start: 02-09-2024 End: 02-09-2024 ambulatory Chapito Drake Facility:[facility] Start: 02-09-2024 End: 02-09-2024 ambulatory Chapito Drake Facility:[facility] Start: 11-24-2023 End: 11-24-2023 ambulatory [facility] Work Phone: Start: 11-24-2023 End: 11-24-2023 Patient encounter procedure [facility] Work Phone: Start: 09-27-2023 End: 09-27-2023 Patient encounter procedure [facility] Start: 04-22-2023 End: 04-22-[address] Chapito Drake Work Phone: [facility] Work Phone: Start: 04-22-2023 End: 04-22-[address] [facility] Start: 04-06-2023 End: 04-06-[address] [facility] Start: 02-02-2023 End: 02-02-[address] Chapito Drake Work Phone: [facility] Work Phone: Start: 04-24-2022 End: 04-24-[address] Chapito Drake Work Phone: [facility] Work Phone: Start: 04-24-2022 End: 04-24-[address] Chapito Drake Work Phone: [facility] Start: 01-19-2022 End: 01-19-[address] Chapito Drake Work Phone: [facility] Start: 01-01-2021 [facility] Start: 06-06-2020 End: 06-06-2020 Patient encounter procedure RUSSELL Leal SARAH [facility] Plan of Treatment Date Care Activity Detail Author Start: 2035 RSV VACCINE (1 - 1-d ose 75+ series) RSV VACCINE (1 - 1-dose 75+ series) [facility] Start: 05-07-2025 Influenza vaccination INFLUENZ A VACCINE (Season Ended) [facility] Start: 04-06-2025 End: 04-06-2025 Patient encounter procedure 04/06/2025 2:30 PM EDT Office Visit [facility] [address] [place] [id number] Amrik Morgan, Praveena Leal, [address] [address] [facility] Start: 02-07-2025 End: 02-07-2026 CODY MULTIPLEX SCRN WITH REFLEX CODY MULTIPLEX SCRN WITH REFLEX Lab Routine Cervicalgia Tendonitis of both rotator cuffs Primary osteoarthritis of both hands Primary osteoarthritis of both feet Disorder of bone and articular cartilage Chronic pain of both shoulders On 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 therapy 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 History of gout Fatigue, unspecified type Family history of systemic lupus erythematosus Family history of rheumatoid arthritis Primary hypertension Dyslipidemia Hip pain, right Greater trochanteric bursitis of right hip Expected: 02/07/2025 (Approximate), Expires: 02/07/2026 [facility] Comment on above: Expected: 02/07/2025 (Approximate), Expires: 02/07/2026 Start: 02-07-2025 End: 02-07-2026 ANCA INIT SCRN (ANCA, PR3AB, MPO) ANCA INIT SCRN (ANCA, PR3AB, MPO) Lab Routine Cervicalgia Tendonitis of both rotator cuffs Primary osteoarthritis of both hands Primary osteoarthritis of both feet Disorder of bone and articular cartilage Chronic pain of both shoulders On statin therapy nursing home (current) use of antibiotics History of gout Fatigue, unspecified type Family history of systemic lupus erythematosus Family history of rheumatoid arthritis Primary hypertension Dyslipidemia Hip pain, right Greater trochanteric bursitis of right hip Expected: 02/07/2025 (Approximate), Expires: 02/07/2026 [facility] Comment on above: Expected: 02/07/2025 (Approximate), Expires: 02/07/2026 Start: 02-07-2025 End: 02-07-2026 Angiotensin converting enzyme [Enzymatic activity/volume] in Serum or Plasma ANGIOTENSIN CONVERTING ENZYME Lab Routine Cervicalgia Tendonitis of both rotator cuffs Primary osteoarthritis of both hands Primary osteoarthritis of both feet Disorder of bone and articular cartilage Chronic pain of both shoulders On statin therapy 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 History of gout Fatigue, unspecified type Family history of systemic lupus erythematosus Family history of rheumatoid arthritis Primary hypertension Dyslipidemia Hip pain, right Greater trochanteric bursitis of right hip Expected: 02/07/2025 (Approximate), Expires: 02/07/2026 [facility] Comment on above: Expected: 02/07/2025 (Approximate), Expires: 02/07/2026 Start: 02-07-2025 End: 02-07-2026 C-reactive protein C REACTIVE PROTEIN Lab Routine Cervicalgia Tendonitis of both rotator cuffs Primary osteoarthritis of both hands Primary osteoarthritis of both feet Disorder of bone and articular cartilage Chronic pain of both shoulders On 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 therapy 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 History of gout Fatigue, unspecified type Family history of systemic lupus erythematosus Family history of rheumatoid arthritis Primary hypertension Dyslipidemia Hip pain, right Greater trochanteric bursitis of right hip Expected: 02/07/2025 (Approximate), Expires: 02/07/2026 [facility] Comment on above: Expected: 02/07/2025 (Approximate), Expires: 02/07/2026 Start: 02-07-2025 End: 02-07-2026 CK CK Lab Routine Cervicalgia Tendonitis of both rotator cuffs Primary osteoarthritis of both hands Primary osteoarthritis of both feet Disorder of bone and articular cartilage Chronic pain of both shoulders On 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 therapy 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 History of gout Fatigue, unspecified type Family history of systemic lupus erythematosus Family history of rheumatoid arthritis Primary hypertension Dyslipidemia Hip pain, right Greater trochanteric bursitis of right hip Expected: 02/07/2025 (Approximate), Expires: 02/07/2026 [facility] Comment on above: Expected: 02/07/2025 (Approximate), Expires: 02/07/2026 Start: 02-07-2025 End: 02-07-2026 Complete blood count with white cell differential, automated CBC, EDIF, PLATELET Lab Routine Cervicalgia Tendonitis of both rotator cuffs Primary osteoarthritis of both hands Primary osteoarthritis of both feet Disorder of bone and articular cartilage Chronic pain of both shoulders On statin therapy nursing home (current) use of antibiotics History of gout Fatigue, unspecified type Family history of systemic lupus erythematosus Family history of rheumatoid arthritis Primary hypertension Dyslipidemia Hip pain, right Greater trochanteric bursitis of right hip Expected: 02/07/2025 (Approximate), Expires: 02/07/2026 [facility] Comment on above: Expected: 02/07/2025 (Approximate), Expires: 02/07/2026 Start: 02-07-2025 End: 02-07-2026 Comprehensive metabolic 2000 panel - Serum or Plasma COMPREHENSIVE METABOLIC PANEL Lab Routine Cervicalgia Tendonitis of both rotator cuffs Primary osteoarthritis of both hands Primary osteoarthritis of both feet Disorder of bone and articular cartilage Chronic pain of both shoulders On statin therapy nursing home (current) use of antibiotics History of gout Fatigue, unspecified type Family history of systemic lupus erythematosus Family history of rheumatoid arthritis Primary hypertension Dyslipidemia Hip pain, right Greater trochanteric bursitis of right hip Expected: 02/07/2025 (Approximate), Expires: 02/07/2026 [facility] [employer] [facility] Comment on above: Expected: 02/07/2025 (Approximate), Expires: 02/07/2026 Start: 02-07-2025 End: 02-07-2026 CRYOGLOBULIN CRYOGLOBULIN Lab Routine Cervicalgia Tendonitis of both rotator cuffs Primary osteoarthritis of both hands Primary osteoarthritis of both feet Disorder of bone and articular cartilage Chronic pain of both shoulders On statin therapy 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 History of gout Fatigue, unspecified type Family history of systemic lupus erythematosus Family history of rheumatoid arthritis Primary hypertension Dyslipidemia Hip pain, right Greater trochanteric bursitis of right hip Expected: 02/07/2025 (Approximate), Expires: 02/07/2026 [facility] [employer] [facility] Comment on above: Expected: 02/07/2025 (Approximate), Expires: 02/07/2026 Start: 02-07-2025 End: 02-07-2026 HEPATITIS A, B, C HEPATITIS A, B, C Lab Routine Cervicalgia Tendonitis of both rotator cuffs Primary osteoarthritis of both hands Primary osteoarthritis of both feet Disorder of bone and articular cartilage Chronic pain of both shoulders On statin therapy 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 History of gout Fatigue, unspecified type Family history of systemic lupus erythematosus Family history of rheumatoid arthritis Primary hypertension Dyslipidemia Hip pain, right Greater trochanteric bursitis of right hip Expected: 02/07/2025 (Approximate), Expires: 02/07/2026 [facility] Comment on above: Expected: 02/07/2025 (Approximate), Expires: 02/07/2026 Start: 02-07-2025 End: 02-07-2026 CURTIS AND PE, SERUM CURTIS AND PE, SERUM Lab Routine Cervicalgia Tendonitis of both rotator cuffs Primary osteoarthritis of both hands Primary osteoarthritis of both feet Disorder of bone and articular cartilage Chronic pain of both shoulders On statin therapy nursing home (current) use of antibiotics History of gout Fatigue, unspecified type Family history of systemic lupus erythematosus Family history of rheumatoid arthritis Primary hypertension Dyslipidemia Hip pain, right Greater trochanteric bursitis of right hip Expected: 02/07/2025 (Approximate), Expires: 02/07/2026 [facility] Comment on above: Expected: 02/07/2025 (Approximate), Expires: 02/07/2026 Start: 02-07-2025 End: 02-07-2026 LYME DISEASE SEROLOGY WITH REFLEX LYME DISEASE SEROLOGY WITH REFLEX Lab Routine Cervicalgia Tendonitis of both rotator cuffs Primary osteoarthritis of both hands Primary osteoarthritis of both feet Disorder of bone and articular cartilage Chronic pain of both shoulders On 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 therapy 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 History of gout Fatigue, unspecified type Family history of systemic lupus erythematosus Family history of rheumatoid arthritis Primary hypertension Dyslipidemia Hip pain, right Greater trochanteric bursitis of right hip Expected: 02/07/2025 (Approximate), Expires: 02/07/2026 [facility] Comment on above: Expected: 02/07/2025 (Approximate), Expires: 02/07/2026 Start: 02-07-2025 End: 02-07-2026 Magnesium [Mass/volume] in Serum or Plasma MAGNESIUM Lab Routine Cervicalgia Tendonitis of both rotator cuffs Primary osteoarthritis of both hands Primary osteoarthritis of both feet Disorder of bone and articular cartilage Chronic pain of both shoulders On statin therapy nursing home (current) use of antibiotics History of gout Fatigue, unspecified type Family history of systemic lupus erythematosus Family history of rheumatoid arthritis Primary hypertension Dyslipidemia Hip pain, right Greater trochanteric bursitis of right hip Expected: 02/07/2025 (Approximate), Expires: 02/07/2026 [facility] Comment on above: Expected: 02/07/2025 (Approximate), Expires: 02/07/2026 Start: 02-07-2025 End: 02-07-2026 RHEUMATOID FACTOR RHEUMATOID FACTOR Lab Routine Cervicalgia Tendonitis of both rotator cuffs Primary osteoarthritis of both hands Primary osteoarthritis of both feet Disorder of bone and articular cartilage Chronic pain of both shoulders On statin therapy nursing home (current) use of antibiotics History of gout Fatigue, unspecified type Family history of systemic lupus erythematosus Family history of rheumatoid arthritis Primary hypertension Dyslipidemia Hip pain, right Greater trochanteric bursitis of right hip Expected: 02/07/2025 (Approximate), Expires: 02/07/2026 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 History of gout Fatigue, unspecified type Family history of systemic lupus erythematosus Family history of rheumatoid arthritis Primary hypertension Dyslipidemia Hip pain, right Greater trochanteric bursitis of right hip Expected: 02/07/2025 (Approximate), Expires: 02/07/2026 [facility] Comment on above: Expected: 02/07/2025 (Approximate), Expires: 02/07/2026 Start: 02-07-2025 End: 02-07-2026 Thyrotropin [Units/volume] in Serum or Plasma TSH Lab Routine Cervicalgia Tendonitis of both rotator cuffs Primary osteoarthritis of both hands Primary osteoarthritis of both feet Disorder of bone and articular cartilage Chronic pain of both shoulders On statin therapy 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 History of gout Fatigue, unspecified type Family history of systemic lupus erythematosus Family history of rheumatoid arthritis Primary hypertension Dyslipidemia Hip pain, right Greater trochanteric bursitis of right hip Expected: 02/07/2025 (Approximate), Expires: 02/07/2026 [facility] Comment on above: Expected: 02/07/2025 (Approximate), Expires: 02/07/2026 Start: 02-07-2025 End: 02-07-2026 Urate [Mass/volume] in Serum or Plasma URIC ACID Lab Routine Cervicalgia Tendonitis of both rotator cuffs Primary osteoarthritis of both hands Primary osteoarthritis of both feet Disorder of bone and articular cartilage Chronic pain of both shoulders On statin therapy nursing home (current) use of antibiotics History of gout Fatigue, unspecified type Family history of systemic lupus erythematosus Family history of rheumatoid arthritis Primary hypertension Dyslipidemia Hip pain, right Greater trochanteric bursitis of right hip Expected: 02/07/2025 (Approximate), Expires: 02/07/2026 [facility] Comment on above: Expected: 02/07/2025 (Approximate), Expires: 02/07/2026 Start: 02-07-2025 End: 02-07-2026 Urinalysis dipstick W Reflex Microscopic panel - Urine URINE MICROSCOPIC Fluids Routine Cervicalgia Tendonitis of both rotator cuffs Primary osteoarthritis of both hands Primary osteoarthritis of both feet Disorder of bone and articular cartilage Chronic pain of both shoulders On statin therapy 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 History of gout Fatigue, unspecified type Family history of systemic lupus erythematosus Family history of rheumatoid arthritis Primary hypertension Dyslipidemia Hip pain, right Greater trochanteric bursitis of right hip Expected: 02/07/2025 (Approximate), Expires: 02/07/2026 [facility] Comment on above: Expected: 02/07/2025 (Approximate), Expires: 02/07/2026 Start: 02-07-2025 End: 02-07-2026 Urinalysis, reagent strip without microscopy URINALYSIS, MACRO Fluids Routine Cervicalgia Tendonitis of both rotator cuffs Primary osteoarthritis of both hands Primary osteoarthritis of both feet Disorder of bone and articular cartilage Chronic pain of both shoulders On statin therapy nursing home (current) use of antibiotics History of gout Fatigue, unspecified type Family history of systemic lupus erythematosus Family history of rheumatoid arthritis Primary hypertension Dyslipidemia Hip pain, right Greater trochanteric bursitis of right hip Expected: 02/07/2025 (Approximate), Expires: 02/07/2026 [facility] Comment on above: Expected: 02/07/2025 (Approximate), Expires: 02/07/2026 Start: 02-07-2025 End: 02-07-2026 VITAMIN D (25-HYDROXY,TOTAL) VITAMIN D (25-HYDROXY,TOTAL) Lab Routine Cervicalgia Tendonitis of both rotator cuffs Primary osteoarthritis of both hands Primary osteoarthritis of both feet Disorder of bone and articular cartilage Chronic pain of both shoulders On statin therapy 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 History of gout Fatigue, unspecified type Family history of systemic lupus erythematosus Family history of rheumatoid arthritis Primary hypertension Dyslipidemia Hip pain, right Greater trochanteric bursitis of right hip Expected: 02/07/2025 (Approximate), Expires: 02/07/2026 [facility] Comment on above: Expected: 02/07/2025 (Approximate), Expires: 02/07/2026 Start: 02-07-2025 End: 02-07-2026 VITAMIN D, (1,25 DIHYDROXY) VITAMIN D, (1,25 DIHYDROXY) Lab Routine Cervicalgia Tendonitis of both rotator cuffs Primary osteoarthritis of both hands Primary osteoarthritis of both feet Disorder of bone and articular cartilage Chronic pain of both shoulders On statin therapy nursing home (current) use of antibiotics History of gout Fatigue, unspecified type Family history of systemic lupus erythematosus Family history of rheumatoid arthritis Primary hypertension Dyslipidemia Hip pain, right Greater trochanteric bursitis of right hip Expected: 02/07/2025 (Approximate), [facility]: [facility] Comment on above: Expected: 02/07/2025 (Approximate), Expires: 02/07/2026 Start: 02-07-2025 End: 02-07-2026 XR Cervical spine 4 Views XR SPINE CERVICAL 4-5 VIEWS Imaging Routine Cervicalgia Tendonitis of both rotator cuffs Primary osteoarthritis of both hands Primary osteoarthritis of both feet Disorder of bone and articular cartilage Chronic pain of both shoulders On statin therapy nursing home (current) use of antibiotics History of gout Fatigue, unspecified type Family history of systemic lupus erythematosus Family history of rheumatoid arthritis Primary hypertension Dyslipidemia Hip pain, right Greater trochanteric bursitis of right hip Expected: 02/07/2025, Expires: 02/07/2026 [facility] Comment on above: Expected: 02/07/2025 , Expires: 02/07/2026 Start: 02-07-2025 End: 02-07-2026 XR Hip - right 2 Views XR HIP RIGHT 2-3 VIEWS Imaging Routine Cervicalgia Tendonitis of both rotator cuffs Primary osteoarthritis of both hands Primary osteoarthritis of both feet Disorder of bone and articular cartilage Chronic pain of both shoulders On statin therapy 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 Comment on above: Expected: 02/07/2025 , Expires: 02/07/2026 Start: 02-07-2025 End: 02-07-2026 XR Shoulder - left 2 Views XR SHOULDER LEFT 2+ VIEWS Imaging Routine Cervicalgia Tendonitis of both rotator cuffs Primary osteoarthritis of both hands Primary osteoarthritis of both feet Disorder of bone and articular cartilage Chronic pain of both shoulders On statin therapy nursing home (current) use of antibiotics History of gout Fatigue, unspecified type Family history of systemic lupus erythematosus Family history of rheumatoid arthritis Primary hypertension Dyslipidemia Hip pain, right Greater trochanteric bursitis of right hip Expected: 02/07/2025, Expires: 02/07/2026 [facility] Comment on above: Expected: 02/07/2025 , Expires: 02/07/2026 Start: 02-07-2025 End: 02-07-2026 XR Shoulder - right 2 Views XR SHOULDER RIGHT 2+ VIEWS Imaging Routine Cervicalgia Tendonitis of both rotator cuffs Primary osteoarthritis of both hands Primary osteoarthritis of both feet Disorder of bone and articular cartilage Chronic pain of both shoulders On statin therapy nursing home (current) use of antibiotics History of gout Fatigue, unspecified type Family history of systemic lupus erythematosus Family history of rheumatoid arthritis Primary hypertension Dyslipidemia Hip pain, right Greater trochanteric bursitis of right hip Expected: 02/07/2025, Expires: 02/07/2026 [facility] Comment on above: Expected: 02/07/2025 , Expires: 02/07/2026 Start: 05-07-2024 COVID-19 VACCINE ( season) COVID-19 VACCINE ( season) [facility] Start: 08-24-2017 Zoster vaccine hzv l cassandra for subcutaneous use ZOSTER (SHINGLES) VACCINE (2 of 3) [facility] Start: 2015 Prostate specific antigen measurement PROSTATE CANCER SCREENING DISCUSSION [facility] Start: 2010 Pneumococcal vaccination PNEUMOCOCCAL VACCINE SERIES (1 of 1 - PCV) [facility] Start: 2005 Screening for malign ant neoplasm of colon COLORECTAL CANCER SCREENING DISCUSSION [facility] Start: 2000 Lipid panel LIPID SCREENING [facility] Start: 1979 Third diphtheria, tetanus and acellular pertussis (DTaP) vaccination TDAP (ADULT) [facility] Start: 1975 HIV screening HIV SCREENING DISCUSSI ON [facility] Start: 1960 Hepatitis C screening HEPATITI S C VIRUS SCREENING [facility] Start: 1960 Tetanus vaccination TETANUS [facility] Lipid 1996 panel - Serum or Plasma [facility] Immunizations Immunization Date Immunization Notes Care Provider Amber heindaily 07-03-2020 influenza virus vaccine, unspecified formulation Praveena Rowley Jr., DO Work Phone: [facility] 06-29-2017 zoster vaccine, unspecified formulation Praveena Rowley Jr., DO Work Phone: [facility] 11-09-2016 rabies vaccine, for intramuscular injection Dr. Chapito Drake Work Phone: [facility] 10-29-2016 rabies vaccine, for intramuscular injection Dr. Chapito Drake Work Phone: [facility] 10-26-[address] Anuj Drake Work Phone: [facility] 10-26-2016 rabies vaccine, for intramuscular injection Dr. Chapito Drake Work Phone: [facility] Payers Date Payer Category Payer Managed Care (unspecified) [facility] [id number] 2024 Self-pay [id number] 2023 Private Health Insurance [id number] 2012 Unknown [id number] 1960 Unknown [id number] 1960 Unknown [id number] [id number] 1960 Unknown [id number] [id number] 1960 Unknown [id number] [id number] Unknown [facility] PACKAGE PLAN [id number] Unknown [id number] Unknown [id number] Unknown [id number] Unknown [id number] [id number] Unknown [id number] Unknown [id number] [id number] Unknown [id number] [id number] Social History Date Type Detail Facility Start: 01-19-2022 End: 02-02-2023 Tobacco smoking status NHIS Unknown if ever smoked [facility] Start: 11-07-2020 [facility] Start: 1960 Sex Assigned At Male [facility] Start: 02-02-2023 End: 02-07-2025 Tobacco smoking status NHIS Never smoked tobacco (finding) [facility] Start: 02-07-2025 Tobacco use and exposure Smokeless tobacco non-user [facility] Start: 02-07-2025 History of Social function [facility] Start: 02-07-2025 Tobacco use panel [facility] Start: 1960 Sex assigned at Not on file [facility] Start: 11-06-2020 Sex Male (finding) [facility] History of Present illness Narrative 02-07-2025 Praveena [...] All questions answered for the patient and sales representative printing. Travel Accommodation Inspector helps with history. 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 Hyperlipidemia chronic Sinus congestion chronic [facility] Work Phone: Evaluation note Note Date & Type Note Facility Evaluation note No assessment information availa ble [facility] Work Phone: Evaluation note Note Date & Type Note Facility Evaluation note Diagnosis Onset Date Resolution Polyneuropathy acute February 06, 2025 7:54am Cerebrovascular disease chronic J 2024 7:54am Hyperlipidemia chronic February 06, 2025 7:54am [facility] Work Phone: Evaluation note Note Date & Type Note Facility Evaluation note Diagnosis Cervicalgia- Primary Tendonitis of both rotator cuffs Primary osteoarthritis of both hands Primary osteoarthritis of both feet Disorder of bone and articular cartilage Chronic pain of both shoulders Pain in joint, shoulder region On statin therapy nursing home (current) use of antibiotics History of gout [...] of hip region documented in this encounter [facility] Reason for referral (narrative) Note Date & Type Note Facility Reason for referral (narrative) No reason for referral information available [facility] Work Phone: Summary Purpose Family History Relationship Condition Age at Onset Recorded Date/T pradip mother Anxiety Unknown Arthritis Unknown Autoimmune disorder Unknown Myocardial infarction 74 Hypertension Unknown Osteoporosis Unknown father Myocardial infarction 45 Cardiac disease Unknown High blood cholesterol Unknown Advance Directives Advance Directive Response Recorded Date/ Time Living Will No November 07, 2020 2:03pm Power of Security Technician No November 07 2:03pm Chief Complaint and [...] section and content) DATE CREATED AUTHOR [facility]/11/2020 [facility] DATE CREATED AUTHOR AUTHOR'S ORGANIZ ATION 01/02/2021 [facility] DATE CREATED AUTHOR AUTHOR'S ORGANIZ ATION 02/06/2025 [facility] DATE CREATED AUTHOR AUTHOR'S ORGANIZ ATION 02/08/2025 [facility] spital Goals (unrecognized section and content) Goals [...] Dr. 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 [facility] [employer] [facility] provides no warranty or guarantee of the accuracy or completeness of information in this document.
--- NOTE | 2025-03-21 09:20 | RAD_ITS ---
EXAM: XR Left Shoulder Complete, 2 or More Views CLINICAL INDICATION: PAIN TECHNIQUE: Two or more views of the left shoulder. COMPARISON: No relevant prior studies available. FINDINGS: BONES/JOINTS: Moderate degenerative changes of the acromioclavicular and glenohumeral joints. No acute fracture. No dislocation. SOFT TISSUES: Soft tissue swelling. RAD/Shoulder min 2 Views IMPRESSION: Degenerative changes as above. Reading Location: [facility]
--- NOTE | 2025-03-21 09:20 | RAD_ITS ---
EXAM: XR Right Hip With Pelvis When Performed, 2 or 3 Views CLINICAL INDICATION: PAIN TECHNIQUE: Two or three views of the right hip with pelvis when performed. COMPARISON: No relevant prior studies available. FINDINGS: BONES/JOINTS: Mild degenerative changes of the hip joint. No acute fracture. No dislocation. SOFT TISSUES: Unremarkable. RAD/HIP, UNI W/ Pelvis 2-3 Views IMPRESSION: Degenerative changes as above. Reading Location[facility]
--- NOTE | 2025-03-21 09:20 | RAD_ITS ---
EXAM: XR Left Shoulder Complete, 2 or More Views CLINICAL INDICATION: PAIN TECHNIQUE: Two or more views of the left shoulder. COMPARISON: No relevant prior studies available. FINDINGS: BONES/JOINTS: Moderate degenerative changes of the acromioclavicular and glenohumeral joints. No acute fracture. No dislocation. SOFT TISSUES: Soft tissue swelling. RAD/Shoulder min 2 Views IMPRESSION: Degenerative changes as above. Reading Location: [facility]
--- NOTE | 2025-03-21 09:20 | RAD_ITS ---
EXAM: XR Bilateral S-I Jts 3 CLINICAL INDICATION: PAIN TECHNIQUE: X-ray bilateral s-i jts 3. COMPARISON: No relevant prior studies available. FINDINGS: Mild degenerative changes of the sacroiliac joints, bilaterally. No acute fracture or dislocation. Unremarkable soft tissues. RAD/S-I Jts 3 or More Views IMPRESSION: Degenerative changes as above. Reading Location: [facility]
--- NOTE | 2025-03-21 09:20 | RAD_ITS ---
PROCEDURE: CERV SPINE 4 OR 5 VIEWS 03/21/2025 REASON FOR EXAM: PAIN TECHNIQUE: CERV SPINE 4 OR 5 VIEWS COMPARISON: CTA head and neck 11/06/2020 FINDINGS: Cervical vertebral body heights and alignment are maintained. There is [id number] disc height loss with endplate osteophyte formation at C5-6, with at least mild osseous neural foraminal narrowing at this level. Prevertebral soft tissues are normal in thickness. Odontoid view is unremarkable. Lung apices are clear. RAD/Cerv Spine 4 or 5 Views IMPRESSION: [id number] degenerative changes at C5-6. Reading Location: [facility]
--- NOTE | 2025-03-21 09:20 | RAD_ITS ---
PROCEDURE: CERV SPINE 4 OR 5 VIEWS 03/21/2025 REASON FOR EXAM: PAIN TECHNIQUE: CERV SPINE 4 OR 5 VIEWS COMPARISON: CTA head and neck 11/06/2020 FINDINGS: Cervical vertebral body heights and alignment are maintained. There is [id number] disc height loss with endplate osteophyte formation at C5-6, with at least mild osseous neural foraminal narrowing at this level. Prevertebral soft tissues are normal in thickness. Odontoid view is unremarkable. Lung apices are clear. RAD/Cerv Spine 4 or 5 Views IMPRESSION: [id number] degenerative changes at C5-6. Reading Location: [facility]
--- NOTE | 2025-03-21 09:20 | RAD_ITS ---
EXAM: XR Bilateral S-I Jts 3 CLINICAL INDICATION: PAIN TECHNIQUE: X-ray bilateral s-i jts 3. COMPARISON: No relevant prior studies available. FINDINGS: Mild degenerative changes of the sacroiliac joints, bilaterally. No acute fracture or dislocation. Unremarkable soft tissues. RAD/S-I Jts 3 or More Views IMPRESSION: Degenerative changes as above. Reading Location[facility]
--- NOTE | 2025-03-21 09:20 | RAD_ITS ---
EXAM: XR Right Shoulder Complete, 2 or More Views CLINICAL INDICATION: PAIN TECHNIQUE: Two or more views of the right shoulder. COMPARISON: No relevant prior studies available. FINDINGS: BONES/JOINTS: Mild degenerative changes of the acromioclavicular and glenohumeral joints. No acute fracture. No dislocation. SOFT TISSUES: Soft tissue swelling. RAD/Shoulder min 2 Views IMPRESSION: Degenerative changes as above. Reading Location: [facility]
--- NOTE | 2025-03-21 09:20 | RAD_ITS ---
EXAM: XR Right Shoulder Complete, 2 or More Views CLINICAL INDICATION: PAIN TECHNIQUE: Two or more views of the right shoulder. COMPARISON: No relevant prior studies available. FINDINGS: BONES/JOINTS: Mild degenerative changes of the acromioclavicular and glenohumeral joints. No acute fracture. No dislocation. SOFT TISSUES: Soft tissue swelling. RAD/Shoulder min 2 Views IMPRESSION: Degenerative changes as above. Reading Location: [facility]
--- NOTE | 2025-03-21 09:20 | RAD_ITS ---
EXAM: XR Right Hip With Pelvis When Performed, 2 or 3 Views CLINICAL INDICATION: PAIN TECHNIQUE: Two or three views of the right hip with pelvis when performed. COMPARISON: No relevant prior studies available. FINDINGS: BONES/JOINTS: Mild degenerative changes of the hip joint. No acute fracture. No dislocation. SOFT TISSUES: Unremarkable. RAD/HIP, UNI W/ Pelvis 2-3 Views IMPRESSION: Degenerative changes as above. Reading [facility]
[2025-03-21 10:49] LABS: Hematocrit 45.3 % (40-54); Hemoglobin 15.2 g/dL (13.0-16.5); Immature Granulocytes Count 0.010 X10^3/uL (0.0-0.0); Mean Corp Hgb Conc 33.6 g/dL (32-36); Mean Corpuscular Volume 88.5 fL (80-94); Mean Platelet Vol. 9.7 fl (6.2-12.0); NRBC Flagged by Analyzer 0 % (0-5); Platelet Count 216 K/mm3 (150-450); RBC Distribution Width CV 13.0 % (11.6-14.6); RBC Distribution Width SD 42.3 fl (35.1-43.9); Red Blood Count 5.12 M/mm3 (4.6-6.2); White Blood Count 4.9 K/mm3 (4.4-11.0)
[2025-03-21 12:26] LABS: Color, Urine Yellow (Yellow); Glucose, Dipstick Normal (Normal); Ketone-Dipstick Negative (Negative); Leukocyte Esterase-Dipstick Negative /ul (Negative); Nitrite-Dipstick Negative (Negative); Occult Blood-Urine Negative /ul (Negative); Protein-Dipstick 15 mg/dl (Negative); Specific Gravity, Urine 1.020 (1.002-1.030); Urine Bilirubin Dipstick Negative (Negative)
[2025-03-21 12:37] LABS: Mucous, Urine 2+ /hpf (<or=2+); Squamous Epithelial Cells - UA 0-5 SEEN /hpf (0-5)
[2025-03-21 12:42] LABS: AST(SGOT) 28 U/L (<=37); Alanine Aminotransfer ALT/SGPT 40 U/L (<=46); Albumin, Serum 4.8 g/dL (3.4-4.8); Alkaline Phosphatase 74 U/L (40-129); Anion Gap 13 (5-15); BUN 19 mg/dL (4-19); BUN/Creat Ratio 26.6 RATIO (10-20); CPK Total, Creatine Kinase 150 U/L (24-195); Calcium,Total 9.9 mg/dL (7.6-11.0); Carbon Dioxide 21.2 mmol/L (21.0-32.0); Chloride 103 mmol/L (98-108); Globulin 2.9 g/dL (2.2-4.2); Glucose 102 mg/dL (70-99); Potassium 4.3 mmol/L (3.3-5.1); Vitamin D,25 Hydroxy 26.8 ng/mL (30-100)
[2025-03-21 12:52] LABS: CRP < 3.00 mg/L (0.0-3.0); Magnesium 2.5 mg/dL (1.5-2.2); Uric Acid 4.5 mg/dL (3.5-7.2)
[2025-03-23 13:08] LABS: ANTINUCLEAR ANTIBODIES DIRECT Negative (Negative); Vitamin D 1,25-Dihydroxy 25.3 pg/mL (24.8-81.5)
[2025-03-27 01:07] LABS: Albumin 4.3 g/dL (2.9-4.4); Angiotensin Convert Enzyme 39 U/L (14-82); Gamma Globulin 1.0 g/dL (0.4-1.8); HEPATITIS B SURFACE AG Negative (Negative); Hep C Antibodies Non Reactive (Non Reactive); Immunoglobulin A 138 mg/dL (61-437); Immunoglobulin G 1016 mg/dL (603-1613); Immunoglobulin M 40 mg/dL (20-172); PROEL- TOTAL PROTEIN 7.4 g/dL (6.0-8.5)
== END | disposition home or self-care (01) ==
PROVIDERS: PCP Family Medicine; Referring Provider Internal Medicine Rheumatology; Visit Provider Internal Medicine Rheumatology
DX: M25.511 Pain in right shoulder (principal); M54.2 Cervicalgia; M75.81 Other shoulder lesions, right shoulder; M75.82 Other shoulder lesions, left shoulder; Z79.2 Long term (current) use of antibiotics; Z87.39 Personal history of other diseases of the musculoskeletal system and connective tissue; R53.83 Other fatigue; Z82.69 Family history of other diseases of the musculoskeletal system and connective tissue; Z82.61 Family history of arthritis; I10 Essential (primary) hypertension; E78.5 Hyperlipidemia, unspecified; M70.61 Trochanteric bursitis, right hip; M19.041 Primary osteoarthritis, right hand; M19.042 Primary osteoarthritis, left hand; M19.071 Primary osteoarthritis, right ankle and foot; M19.072 Primary osteoarthritis, left ankle and foot; M89.9 Disorder of bone, unspecified; M94.9 Disorder of cartilage, unspecified; G89.29 Other chronic pain; M25.512 Pain in left shoulder; Z79.899 Other long term (current) drug therapy
CPT/HCPCS: 36415; 72050; 72202; 73030; 73502; 80053; 80074; 81001; 82164; 82306; 82550; 82595; 82652; 82784; 83516; 83735; 84165; 84403; 84443; 84550; 85025; 85652; 86037; 86038; 86140; 86225; 86334; 86431; 86617

== ENCOUNTER → 2025-04-17 | Outpatient (CLI) | payer OTHER, SELFPAY ==
[2025-04-17 10:32] LABS: Ferritin 163 ng/mL (37-417)
[2025-04-22 13:07] LABS: Testosterone, % Free 3.51 % (1.50-4.20); Testosterone, Free 12.36 ng/dL (5.00-21.00)
== END | disposition home or self-care (01) ==
LOC: MTLAB 07:39
PROVIDERS: PCP Family Medicine; Referring Provider Family Medicine; Visit Provider Family Medicine
DX: R79.89 Other specified abnormal findings of blood chemistry (principal)
CPT/HCPCS: 36415; 82728; 84402; 84403